=== PATIENT | male | born 1960 | race Caucasian/White ===

== ENCOUNTER → 2020-11-03 08:56 | Outpatient (CLI) | payer OTHER, SELFPAY ==
[2020-11-03 18:42] LABS: SARS-CoV-2 RNA PCR Negative
== END ==
PROVIDERS: PCP Family Medicine; Visit Provider Nurse Practitioner Family
DX: Z20.822 Contact with and (suspected) exposure to COVID-19 (principal); R06.89 Other abnormalities of breathing
CPT/HCPCS: C9803; U0003; U0005

== ENCOUNTER 2020-11-07 18:11 | Emergency (ER) | payer OTHER, SELFPAY ==
--- NOTE | ~2020-11-07 | XR_ITS ---
EXAMINATION: XR chest 2V DATE: 11/07/2020 18:47 INDICATION: Shortness of breath, fever, fatigue, weakness and lightheadedness. TECHNIQUE: frontal view of the chest was obtained. COMPARISON: Chest radiograph dated 11/05/18. FINDINGS: New linear band of atelectasis at the lingula. Prior band of discoid atelectasis at the right middle lobe has resolved. New small airspace opacity projects over the right hemidiaphragm which could repre sent pneumonia. No pleural effusion or pneumothorax. The cardiomediastinal silhouette is normal. Visu alized bones and soft tissues are unremarkable. IMPRESSION: 1. New small airspace opacity in the right lower lung zone which could represent atelectasis or pneum onia. 2. More well-defined linear discoid atelectasis at the lingula. Reviewed, dictated and finalized at location A. IMPRESSION: 1. New small airspace opacity in the right lower lung zone which could represen t atelectasis or pneumonia. 2. More well-defined linear discoid atelectasis at the lingula.
[2020-11-07 18:13] VITALS: BP 111/70; PULSE 83; RESP 20; TEMP 36.3; O2SAT 99
--- NOTE | 2020-11-07 18:13 | ECG_ITS ---
Measurements Intervals [place] Rate: 85 P: 16 [place]: 142 QRS: -11 QRSD: 90 T: -4 QT: 360 QTc: 429 Interpretive Statements SINUS RHYTHM BORDERLINE T WAVE ABNORMALITY- INFERIOR LEADS BASELINE ARTIFACT- I BORDERLINE ECG Electronically Signed On 11-07-2020 21:10:49 CDT by Liang Parrish D.O.
[2020-11-07 18:35] LABS: Basophils Absolute Auto 0.1 K/mm3 (0.0-0.1); Basophils Percent Auto 0.3 % (0.2-1.2); Eosinophils Absolute Auto 0.2 K/mm3 (0-0.3); Eosinophils Percent Auto 1.1 % (0-4.4); Hemoglobin 14.1 g/dL (14.0-18.0); Immature Granulocyte Absolute 0.14 K/mm3 (0.00-0.031); Immature Granulocyte Percent A 0.9 % (0-0.5); Lymphocytes Absolute Auto 1.79 K/mm3 (0.9-3.2); Lymphocytes Percent Auto 11.8 % (18.3-44.2); Mean Corpuscular HGB Conc 32.8 g/dl (32-36); Mean Corpuscular Volume 88.3 fl (80-100); Mean Platelet Volume 9.6 fl (7.4-10.4); Monocytes Absolute Auto 1.3 K/mm3 (0.1-0.6); Monocytes Percent Auto 8.7 % (2.6-8.5); Neutrophils Absolute Auto 11.7 K/mm3 (1.3-6.7); Neutrophils Percent Auto 77.2 % (45.5-73.1); Platelet Count Result 231 k/mm3 (150-375); Red Blood Count 4.87 M/mm3 (4.6-6.20); White Blood Count 15.2 K/mm3 (4.5-10.0)
[2020-11-07 18:46] LABS: Anion Gap 11 mmol/L (8-16); Blood Urea Nitrogen 16 mg/dL (9-20); Carbon Dioxide 25 mmol/L (22-30); Chloride 105 mmol/L (98-107); Estimated CRCL calculation 66 ml/min; Estimated Glomerular Filt Rate > 60; Glucose 89 mg/dL (75-110); Potassium 4.1 mmol/L (3.4-5.0); Sodium 141 mmol/L (137-145)
[2020-11-07 21:42] VITALS: BP 114/75; PULSE 82; RESP 18; O2SAT 100
--- NOTE | 2020-11-07 21:48 | ED.SOB ---
HPI - SOB/Dyspnea General Chief Complaint: Shortness of Breath/Dyspnea Stated Complaint: SOB, fatigue Time Seen by Provider: 11/07/20 21:20 Source: patient Mode of arrival: ambulatory Limitations: no limitations History of Present Illness HPI Narrative: 60-year-old with a history of hypertension here with complaints of shortness of breath occasional cough not feeling well for past 1 week. Patient states that he had been tested twice for Covid and was negative. He states that yesterday he was feeling very miserable however today he was feeling fine he denies any chest pain. No history of nausea or vomiting or abdominal pain. MD elicited complaint: shortness of breath Onset (ago): week(s) (1) Context: recent illness Severity: mild Exacerbating factors: nothing Relieving factors: nothing Associated symptoms: denies other symptoms Related Data Home Medications Medication Instructions Recorded Confirmed calcium carb-vitamin D3 ER 600 mg tablet PO 06/02/19 05/23/20 (1,500 mg)-500 unit tablet,ER 24 hr folic acid 1 mg tablet 1 mg PO DAILY 06/02/19 05/23/20 Allergies Allergy/AdvReac Type Severity Reaction Status Date / Time No Known Allergies Allergy Verified 11/02/20 10:25 Review of Systems Review of Systems: All systems reviewed & are unremarkable except as noted in HPI and below Constitutional: Constitutional: Reports no additional constitutional complaints Eyes: Eyes: Reports no additional eye complaints ENT: Reports system reviewed and no additional complaints, except as documented Cardiovascular: Cardiovascular: Reports no additional cardiovascular complaints Respiratory: Respiratory: Reports as per HPI Gastrointestinal: Gastrointestinal: Reports no additional gastrointestinal complaints Musculoskeletal: Musculoskeletal: Reports no additional musculoskeletal complaints Integumentary/Breasts: Skin/Breast: Reports system reviewed and no additional complaints, except as docu Neurologic: Reports system reviewed and no additional complaints, except as documented Endocrine: Endocrine: Reports no additional endocrine complaints [facility] Past Medical History Medical History BMI greater than 30 Crohn disease Elevated alanine aminotransferase (ALT) level Elevated glucose Erectile dysfunction Hypertension Hypothyroidism determined by thyroid function test Low testosterone Oral cancer Squamous acanthoma of left external ear Surgical History Surgical History H/O medial meniscus repair of right knee History of tonsillectomy Family History Family History Mother Hypertension Family history of transient ischemic attacks Family history of cardiovascular disease Family history of coronary artery disease Father Malignant neoplasm of prostate Grandparent Malignant neoplasm of prostate Social History Social History Smoking status: Never smoker Second hand tobacco smoke exposure: No Alcohol intake: current Substance use: never Substance use type: does not use Gender identity (if verbalized by the patient): Male Exam Narrative: Exam Narrative: GENERAL: Well-appearing, well-nourished, and in no acute distress. HEAD: Normocephalic, atraumatic. EYES: PERRLA and EOMI. NECK: Supple. CHEST: Clear to auscultation. No respiratory distress. HEART: Regular rate and rhythm. No murmur heard. Normal peripheral pulses. ABDOMEN: Soft, nontender, nondistended, normal active bowel sounds. EXTREMITIES: Normal range of motion. No edema. SKIN: Warm, dry, no rash. NEURO: No focal deficits. Alert and oriented x3. PSYCH: Normal mood and affect. Course Course Emergency Course: Patient lying comfortably on the bed SPO2 on room air is 100% I have reviewed his lab work, chest x-ray findings. Patient
== END 2020-11-07 22:03 | disposition home or self-care (01) ==
PROVIDERS: Emergency Medicine; Emergency Provider Family Medicine; PCP Family Medicine
DX: J18.9 Pneumonia, unspecified organism (principal); I10 Essential (primary) hypertension; K50.90 Crohn's disease, unspecified, without complications; E03.9 Hypothyroidism, unspecified; Z85.819 Personal history of malignant neoplasm of unspecified site of lip, oral cavity, and pharynx; R94.31 Abnormal electrocardiogram [ECG] [EKG]
CPT/HCPCS: 36415; 71046; 80048; 85025; 93005; 99284

== ENCOUNTER → 2020-11-21 07:44 | Outpatient (CLI) | payer OTHER, SELFPAY ==
--- NOTE | ~2020-11-21 | XR_ITS ---
EXAMINATION: XR chest 2V 11/21/2020 07:58 INDICATION: Pneumonia. PROCEDURE: 2 view chest COMPARISON: Comparison to multiple prior studies sequentially, with oldest reviewed study dated 11/20. FINDINGS: There is bibasilar atelectasis. No focal pneumonia or edema. The cardiomediastinal silhouet te is within normal limits. There are no pleural effusions. There is no pneumothorax suspected. IMPRESSION: 1: Bibasilar atelectasis. Reviewed, dictated and finalized at location B. IMPRESSION: 1: Bibasilar atelectasis.
== END ==
PROVIDERS: PCP Family Medicine; Visit Provider Nurse Practitioner Family
DX: J18.9 Pneumonia, unspecified organism (principal); R91.8 Other nonspecific abnormal finding of lung field
CPT/HCPCS: 71046

== ENCOUNTER → 2020-11-24 15:07 | Outpatient (CLI) | payer OTHER, SELFPAY ==
--- NOTE | ~2020-11-24 | XR_ITS ---
EXAMINATION: XR foot RT 2V DATE: 11/24/2020 15:43 INDICATION: Right foot pain. TECHNIQUE: 2 views of right foot were obtained. COMPARISON: None. FINDINGS: Bone alignment is normal. No fracture. There is mild osteoarthritis of first metatarsophala ngeal joint. There is soft tissue swelling medial to first metatarsophalangeal joint. There are enthe sophytes at the posterior and plantar aspects of calcaneal tuberosity. IMPRESSION: 1. Mild osteoarthritis of first metatarsophalangeal joint. Reviewed, dictated and finalized at location A.
== END ==
PROVIDERS: PCP Family Medicine; Visit Provider Nurse Practitioner Family
DX: M79.674 Pain in right toe(s) (principal); M79.89 Other specified soft tissue disorders; M19.071 Primary osteoarthritis, right ankle and foot
CPT/HCPCS: 73620

== ENCOUNTER 2021-02-17 07:35 | Outpatient (CLI) | payer OTHER, SELFPAY ==
--- NOTE | ~2021-02-17 | DEXA_ITS ---
Bone Density Report Name: Kennedy Berry Age: 60 Sex: Male Ethnicity: White Date of : 1960 Indication: osteopenia; cancer; Referring Provider: Oscar, Veronika Guillen Study: Bone densitometry was performed. Exam Date: February 17, 2021 Accession number: [id number] Bone Density: Region BMD T-score Z-score Classification AP Spine (L1-L4) 0.979 -1.0 -0.4 Normal Femoral Neck (Left) 0.701 -1.7 -0.7 Osteopenia Total Hip (Left) 0.866 -1.1 -0.7 Osteopenia Total Hip Bilateral Avg 0.850 -1.2 -0.8 Osteopenia Femoral Neck (Right) 0.701 -1.7 -0.7 Osteopenia Total Hip (Right) 0.834 -1.3 -0.9 Osteopenia World Health Organization criteria for BMD impression classify patients as: Normal (T-score at or above -1.0), Osteopenia (T-score between -1.0 and -2.5), or Osteoporosis (T-score at or below -2.5). 10-year Fracture Risk(1): Major Osteoporotic Fracture 6.1% Hip Fracture 0.8% Reported Risk Factors: [place] (), Neck BMD=0.701, BMI=29.8 (1) FRAX(R) Version 3.08. Fracture probability calculated for an untreated patient. Fracture probability may be lower if the patient has received treatment. Previous Exams: Region Exam Age BMD T-score BMD Change BMD Change Date g/cm2 vs Baseline vs Previous AP Spine(L1-L4) 02/17/2021 60 0.979 -1.0 0.005(0.6%)# 0.066(7.3%)* 09/01/2018 58 0.912 -1.6 -0.061(-6.3%)# -0.061(-6.3%)# 08/28/2011 51 0.973 -1.1 Total Hip(Left) 02/17/2021 60 0.866 -1.1 -0.007(-0.8%)# 0.001(0.1%) 09/01/2018 58 0.865 -1.1 -0.008(-0.9%)# -0.008(-0.9%)# 08/28/2011 51 0.874 -1.1 Total Hip(Right) 02/17/2021 60 0.834 -1.3 -0.033(-3.8%)# -0.010(-1.2%) 09/01/2018 58 0.844 -1.2 -0.023(-2.6%)# -0.023(-2.6%)# 08/28/2011 51 0.867 -1.1 *Denotes significance at 95% confidence level, LSC for AP Spine = 0.022 g/cm2, LSC for Total Hip = 0.027 g/cm2 Clinical Information Provided by Patient: Has used the following medications: Calcium Has the following medical conditions: Cancer, CROHN'S DISEASE Patient maximum height was 70 No regular weight bearing exercise Drinks caffeinated beverages Impression: The patient has low bone mass, based on the Left Femoral Neck T-score. The patient has an estimated ten-year risk of hip fracture of 0.8% and an estimated ten-year risk of major fracture of 6.1%, based on the WHO FRAX algorithm. No significant bone loss was observed. Discussion: BONE DENSITY IS LOW AT ONE
== END 2021-02-17 07:36 | disposition home or self-care (01) ==
LOC: ANHIMG 07:36
PROVIDERS: PCP Family Medicine; Visit Provider Physician Assistant Medical
DX: K50.10 Crohn's disease of large intestine without complications (principal); M85.80 Other specified disorders of bone density and structure, unspecified site; Z79.899 Other long term (current) drug therapy; M85.852 Other specified disorders of bone density and structure, left thigh; M85.851 Other specified disorders of bone density and structure, right thigh
CPT/HCPCS: 77080

== ENCOUNTER 2021-04-24 01:34 | Day surgery (SDC) | payer OTHER, SELFPAY ==
--- NOTE | 2021-04-24 07:47 | WPDANESEPPF ---
Anes - Initial Pre Proc Eval Procedure: Operation Date: 04/24/21 10:00 Proposed Procedures p Colonoscopy - Brad Dowling MD Date/Time: 04/24/21 07:47 Surgeon: Brad Dowling MD Pre Op Diagnosis: crohn's disease Patient Data Age: 60 Gender: M Height: 1.78 m Weight: 95 kg Allergies Allergy/AdvReac Type Severity Reaction Status Date / Time No Known Allergies Allergy Verified 04/24/21 09:14 Home Medications Medication Instructions Recorded Confirmed Type calcium carb-vitamin D3 ER 600 mg 1 tablet PO DAILY 06/02/19 04/20/21 History (1,500 mg)-500 unit tablet,ER 24 hr folic acid 1 mg tablet 1 mg PO DAILY 06/02/19 04/20/21 History rosuvastatin 20 mg tablet 20 mg PO DAILY #90 tablet 05/23/20 04/20/21 Rx testosterone 20.25 mg/1.25 gram 2 pump TOPICAL DAILY #75 gm 11/17/20 04/20/21 Rx (1.62 %) transdermal gel pump irbesartan 75 mg tablet See Rx Instructions .ROUTE 11/27/20 04/20/21 Rx .COMPLEX #90 tablet tamsulosin 0.4 mg capsule 0.4 mg PO DAILY #90 cap 02/01/21 04/20/21 Rx lhbdrrwl-qui-dzftz acid 300 1 tablet PO DAILY 03/14/21 04/20/21 History mcg-lycopene 600 mcg-lutein 300 mcg tablet sulfasalazine 500 mg tablet 0.5 g PO Q6H 03/14/21 04/20/21 History Patient hx anesthesia problems: none Family hx anesthesia problems: none Results Review: All pre-operative results and documents have been reviewed as part of the pre-operative evaluation. [facility] Past Medical History Medical History (Updated 04/24/21 @ 07:49 by Arsenio Reno MD) BMI 27.0-27.9,adult BMI 28.0-28.9,adult BMI greater than 30 Crohn disease Dyslipidemia Elevated alanine aminotransferase (ALT) level Elevated glucose Erectile dysfunction Hypertension Hypothyroidism determined by thyroid function test Low testosterone NAFLD (nonalcoholic fatty liver disease) Obesity Oral cancer Squamous acanthoma of left external ear Squamous cell carcinoma Surgical History Surgical History H/O medial meniscus repair of right knee History of tonsillectomy Family History Family History Mother Hypertension Family history of transient ischemic attacks Family history of cardiovascular disease Family history of coronary artery disease Father Malignant neoplasm of prostate Grandparent Malignant neoplasm of prostate Sibling No problems noted. Social History Social History Smoking status: Never smoker Second hand tobacco smoke exposure: Yes Alcohol intake: current Drinks per week: 1 Alcohol use details: Maybe 1 beer a week. 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 Informed Consent: The patient's anesthetic plan and its attendant risks and benefits were discussed with the patient/family/POA. Questions were solicited and answers provided to the satisfaction of the patient/family/POA.
[2021-04-24 09:15] VITALS: BMI 30.4
[2021-04-24 09:18] VITALS: BP 131/97; PULSE 82; RESP 20; TEMP 36.3; O2SAT 99
[2021-04-24] MEDS: LACTATED RINGERS 1,000 ML 150 ML IV CONT (09:19)
--- NOTE | 2021-04-24 09:28 | WPDGICN ---
Assessment and Plan Assessment and plan (1) Crohn disease: Qualifiers: Gastrointestinal tract location: small and large intestine Digestive disease complication type: without complication Qualified Code(s): K50.80 - Crohn's disease of both small and large intestine without complications Code(s): K50.90 - Crohn's disease, unspecified, without complications Status: Acute Assessment and Plan: Patient has a history of Crohn's disease. Appears to be stable on sulfasalazine. Agree with supplementing this with folic acid. Further recommendations will be given after screening colonoscopy. GI Consult Note Consult date/time: 04/24/21 09:28 HPI: Kennedy Berry is a 60 year old male Presents for surveillance colonoscopy. Patient res diagnosed with Crohn's disease in 2010. Apparently had terminal ileal disease. He has been maintained on sulfasalazine. Apparently took 2g of this a day along with folic acid. He apparently stopped it for a while but has restarted. Currently takes 2g a day. He denies any change in his bowel habits. Occasionally will have 1 urgent stools or occasional cramping but very infrequently perhaps 1 time a month. Denies any bleeding. He states he has been in remission for quite some time. This is my 1st encounter with him he previously has seen the nurse practitioner in the office and different patternmaker years ago. Family history is noncontributory. Review of Systems Review of Systems: All systems reviewed & are unremarkable except as noted in HPI and below PMFSH Past Medical History Medical History (Updated 04/24/21 @ 07:49 by Arsenio Reno MD) BMI 27.0-27.9,adult BMI 28.0-28.9,adult BMI greater than 30 Crohn disease Dyslipidemia Elevated alanine aminotransferase (ALT) level Elevated glucose Erectile dysfunction Hypertension Hypothyroidism determined by thyroid function test Low testosterone NAFLD (nonalcoholic fatty liver disease) Obesity Oral cancer Squamous acanthoma of left external ear Squamous cell carcinoma Surgical History Surgical History H/O medial meniscus repair of right knee History of tonsillectomy Family History Family History Mother Hypertension Family history of transient ischemic attacks Family history of cardiovascular disease Family history of coronary artery disease Father Malignant neoplasm of prostate Grandparent Malignant neoplasm of prostate Sibling No problems noted. Social History Social History Smoking status: Never smoker Second hand tobacco smoke exposure: Yes Alcohol intake: current Drinks per week: 1 Alcohol use details: Maybe 1 beer a week. 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ROUTE 11/27/20 04/20/21 Rx .COMPLEX #90 tablet tamsulosin 0.4 mg capsule 0.4 mg PO DAILY #90 cap 02/01/21 04/20/21 Rx omzvqohu-hjl-nymlh acid 300 1 tablet PO DAILY 03/14/21 04/20/21 History mcg-lycopene 600 mcg-lutein 300 mcg tablet sulfasalazine 500 mg tablet 0.5 g PO Q6H 03/14/21 04/20/21 H
[2021-04-24] MEDS: SIMETHICONE ORAL SUSPENSION 20 MG/0.3 ML 30 ML BOTTLE 0.6 ML IRRIGATION (10:00)
[2021-04-24 10:09] VITALS: BP 107/68; PULSE 94; RESP 22; O2SAT 94
[2021-04-24 10:19] VITALS: BP 110/78; PULSE 88; RESP 25; O2SAT 97
[2021-04-24 10:29] VITALS: BP 120/86; PULSE 90; RESP 21; O2SAT 97
== END 2021-04-24 10:56 | disposition home or self-care (01) ==
PROVIDERS: PCP Family Medicine; Visit Provider Internal Medicine Gastroenterology
PROC: 0DJD8ZZ Inspection of Lower Intestinal Tract, Via Natural or Artificial Opening Endoscopic (ICD-10-PCS; CPT 45378; principal; 2021-04-24 10:00)
DX: K50.90 Crohn's disease, unspecified, without complications (principal); K64.8 Other hemorrhoids; E78.5 Hyperlipidemia, unspecified; I10 Essential (primary) hypertension; E03.9 Hypothyroidism, unspecified; K76.0 Fatty (change of) liver, not elsewhere classified; E66.9 Obesity, unspecified; Z68.30 Body mass index [BMI] 30.0-30.9, adult
CPT/HCPCS: 45380; 88305; J2704; J7120

== ENCOUNTER 2021-11-07 11:27 | Outpatient (CLI) | payer OTHER, SELFPAY ==
[2021-11-07 12:08] LABS: Hematocrit 41.2 % (42.0-52.0); Mean Corpuscular Hemoglobin 29.9 pg (26-34); Mean Corpuscular Volume 87.8 fl (80-100); Mean Platelet Volume 9.9 fl (7.4-10.4); Platelet Count Result 185 k/mm3 (150-375); Red Blood Count 4.69 M/mm3 (4.6-6.20); Red Cell Distribution Width 13.3 % (11.5-14.5); White Blood Count 7.7 K/mm3 (4.5-10.0)
[2021-11-11 19:12] LABS: Testosterone Free 100.8 pg/mL (35.0-155.0); Testosterone Total 450 ng/dL (250-1100)
== END 2021-11-07 11:28 | disposition home or self-care (01) ==
PROVIDERS: PCP Family Medicine; Visit Provider Nurse Practitioner Family
DX: R79.89 Other specified abnormal findings of blood chemistry (principal)
CPT/HCPCS: 36415; 84402; 84403; 85027

== ENCOUNTER → 2022-04-30 08:05 | Outpatient (CLI) | payer OTHER, SELFPAY ==
--- NOTE | ~2022-04-30 | US_ITS ---
US abdomen complete DATE: 04/30/2022 08:45 INDICATION: Elevated liver enzymes. Fatty change of the liver. TECHNIQUE: Real-time imaging and Doppler analysis of the abdomen COMPARISON: 11/10/2018 CT abdomen pelvis FINDINGS: Normal caliber of the abdominal aorta. The inferior vena cava is unremarkable. There is suboptimal visualization of the pancreas due to overlying bowel gas. There is hepatic steatosis. No hepatic space-occupying mass lesion is detected. There is normal hepat opedal portal venous flow direction. There are intraluminal filling defects in the dependent aspect of the gallbladder with associated aco ustical shadowing consistent with cholelithiasis. No gallbladder wall thickening or abnormal perichol ecystic fluid collection is evident. Negative sonographic Presley's sign. Normal splenic size. Right kidney measures approximately 10.5 cm length, left kidney approximately 10.8 cm length. There i s a hyperechoic focus of the right kidney which shadowing, likely corresponding to a calculus noted i n the right kidney on prior CT abdomen pelvis examination. No hydronephrosis or space-occupying mass lesion of either kidney is evident. IMPRESSION: Hepatic steatosis Limited evaluation of the pancreas due to overlying bowel gas Cholelithiasis Right nephrolithiasis Reviewed, dictated and finalized at Location A. Reviewed, dictated and finalized at location B. 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
== END ==
PROVIDERS: PCP Family Medicine; Visit Provider Physician Assistant Medical
DX: K76.0 Fatty (change of) liver, not elsewhere classified (principal); K80.20 Calculus of gallbladder without cholecystitis without obstruction; N20.0 Calculus of kidney
CPT/HCPCS: 76700

== ENCOUNTER 2023-04-01 14:46 | Outpatient (CLI) | payer OTHER, SELFPAY ==
--- NOTE | 2023-04-01 14:54 | ECG_ITS ---
Measurements Intervals [place] Rate: 58 P: 51 SD: 170 QRS: 18 QRSD: 97 T: 41 QT: 404 QTc: 398 Interpretive Statements SINUS BRADYCARDIA COMPARED TO ECG 11/07/2020 18:20:23 SINUS BRADYCARDIA NOW PRESENT Electronically Signed On 04-02-2023 11:22:23 CDT by Chaim Reaves M.D.
== END 2023-04-01 14:47 | disposition home or self-care (01) ==
LOC: ANHCARD 14:47
PROVIDERS: PCP Family Medicine; Visit Provider Family Medicine
DX: I49.9 Cardiac arrhythmia, unspecified (principal)
CPT/HCPCS: 93005

== ENCOUNTER 2024-08-06 00:40 | Day surgery (SDC) | payer BC, SELFPAY ==
[2024-07-29 13:34] VITALS: BMI 29.6
--- OUTSIDE RECORDS SUMMARY | 2024-08-06 00:43 | XMS_ITS | Encounter Summary ---
Author Organization [facility] Address [address] [place] [address] Phone Care Team Providers Care Plumbing Engineering Draftsperson Name Role Phone James Langston MD Unavailable [phone] James Langston MD Primary Care Provider + [phone] James Langston MD Primary Care Provider + [phone] Dejah Aburto MD Primary Care Provider + [phone] Mike Llamas MD Primary Care Provider + [phone] Encounter Details Date Type Department Care Team (Late st Contact Info) Description 02/19/2018 Telephone [facility] ([facility]) - [facility] [address] [place] [address] [place] [address] Chiquita Magana Social History Tobacco Use Types Packs/Day Years Used Date Smoking Tobacco: Never Smokeless Tobacco: Never Sex and Gender Information Value Date Recorded Sex Assigned at Not on file 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 Gender Identity Not on file Sexual Orientation Not on file documented as of this encounter Plan of Treatment Not on file documented as of this encounter Visit Diagnoses Not on filedocumented in this encounter Care Teams Plumbing Engineering Draftsperson Relationship Specialty Start Date End Date James Langston MD [address] [place] [id number] PCP - General 08/08/17 02/23/18 James Langston MD [address] [place] [address] PCP - General 02/24/18 04/15/19 Dejah Aburto MD [address] [place] [id number] PCP - General Family Practice 04/16/19 05/17/20 Mike Llamas MD [address] [place] [address] PCP - General Family Medicine 05/18/20 James Langston MD [address] [place] [id number] 08/08/17 documented as of this encounter
--- OUTSIDE RECORDS SUMMARY | 2024-08-06 00:43 | XMS_ITS | Clinical Summary ---
Author Organization [facility] Address [address] [place] [address] Care Team Providers Care Other Spatial Scientist Name Role Phone Mike Llamas MD Primary Care Provider [phone] Source Comments [facility],non-owned Affiliates and Associated Physician Practices is amultiple site organization consisting of ambulatory clinics and hospital sitesin [place], [place], [place] and [place]. This disclosure is being madepursuant to the Care Everywhere program and may not contain all information available regarding this patient. Last updated 18.[facility] Allergies Active Allergy Reactions Criticality Noted Date Comments Azathioprine Vomiting 12/19/2020 Medications * Be aware that medications may not be up to date on this document. Alwaysverify current medications with the patient. Medication Sig Dispensed Refills Start Date End Date Status folic acid (FOLVITE) 1 MG tablet Take 1 (one) tablet by mouth once daily 09/17/2017 Active tamsulosin (FLOMAX) 0.4 MG capsule Take 1 (one) capsule by mouth once daily 08/30/2017 Active Multiple Vitamin (MULTI VITAMIN MENS PO) Take 1 tablet by mouth once daily Active irbesartan (AVAPRO) 75 MG tablet Take 1 (one) tablet by mouth once daily 02/04/2019 Active calcium 200 MG tablet Take 3 (three) tablets by mouth once daily Active rosuvastatin (Crestor) 20 MG tablet 03/28/2022 Active testosterone cypionate (Depo-Testosterone) 200 MG/ML injection 07/24/2022 Activ e Active Problems Problem Noted Date Diagnosed Date Contact dermatitis of left eyelid 03/26/2022 Actinic skin damage 03/26/2022 Inflamed seborrheic keratosis 06/28/2021 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 History of actinic keratoses 10/20/2018 History of nonmelanoma skin cancer 04/07/2018 Actinic keratoses 04/07/2018 History of tongue cancer 04/07/2018 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 Diagnosis. Left oral tongue squamous cell carcinoma Left partial glossectomy, less than 1/2 of the tongue ([place] 08/12/17) Left selective neck dissection levels 1,2,3, and 4 ([place] 08/12/17) Diagnosis * Squamous cell carcinoma of tongue (CMS/HCC) [C02.9] PROCEDURE PERFORMED: ([place] 02/24/18) Left partial Glossectomy Allerderm graft 2 x 4 cm Seborrheic keratoses 10/18/2017 Neoplasm of uncertain behavior of skin 8 Multiple benign melanocytic nevi of upper and lower extremities and trunk 10/18/2017 Solar lentiginosis 10/18/2017 Benign neoplasm of left eyelid 10/18/2017 Immunizations Name Administration Dates Next Due Needle primary monoval ent 12+ yr 0.3mL Purple cap 05/22/2021 HEP A VACCINE, ADULT 06/10/2015 HEP B VACCINE, ADULT 3 DOSE 07/11/2015, 6 INFLUENZA VACCINE 03/05/2022, 1,03/11/2020,2017 PNEUMOCOCCAL PPSV23 11/21/2011 TD (ADULT), 5 LF TETANUS TOX OID, ADSORBED, PF 08/15/2005 TDAP (7yrs+) 07/20/2016 Family History Medical History Relation Name Comments None Known Brother Cancer - Prostate Father None Known Maternal Aunt None Known Maternal Grandfather None Known Maternal Grandmother None Known Maternal Uncle None Known Mother None Known Other None Known Paternal Aunt Cancer - Prostate Paternal Grandfather None Known Paternal Grandmother None Known Paternal Uncle None Known Sister Asthma Neg Hx CVA Neg Hx Cancer - Breast Neg Hx Cancer - Other Neg Hx Cancer - Skin, Melanoma Neg Hx Cancer - Skin, Non Melanoma Neg Hx Eczema Neg Hx Hemophilia Neg Hx Psoriasis Neg Hx Relation Name Status Comments Brother Father Maternal Aunt Maternal Grandfather Maternal Grandmother Maternal Uncle Mother Other Paternal Aunt Paternal Grandfather Paternal Grandmother Paternal Uncle Sister Social History Tobacco Use Types Packs/Day Years Used Date Smoking Tobacco: Never Smokeless Tobacco: Never Alcohol Use Standard Drinks/Week Comments Yes 0 (1 standard drink = 0.6 oz pur e alcohol) Sex and Gender Information Value Date Recorded Sex Assigned at Not on file Gender Identity Not on file Sexual Orientation Not on file Last Filed Vital Signs Vital Sign Reading Time Taken Comments Blood Pressure 122/91 01/10/2018 1:00 PM CDT Pulse 95 01/10/2018 1:00 PM CDT Temperature 36.7 C (98.1 F) 01/10/2018 8:16 AM CDT Respiratory Rate 25 01/10/2018 12:00 PM CDT Oxygen Saturation 99% 01/10/2018 1:00 PM CDT Inhaled Oxygen Concentration - - Weight 90.7 kg (200 lb) 01/10/2018 8:16 AM CDT Height 177.8 cm (5' 10 ) 01/10/2018 8:16 AM CDT Body Mass Index 28.7 01/10/2018 8:16 AM CDT Plan of Treatment Upcoming Encounters Date Type Department Care Team (Late st Contact Info) Description 04/16/2025 1:00 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 Office Visit [facility] - Dermatology [address] [place] [address], [facility] [place] [address] Cameron Christianson MD [address] [place] [address] [address] [place] [address] Health Maintenance Due Date Last Done Comments COLOGUARD (AGES 45-75) - COLON CA SCREENING 1961 COLON MONITORING 1961 COLONOSCOPY - COLON CA SCREENING 1961 CT COLONOGRAPHY - COLON CA SCREENING 1961 Colorectal Cancer Screening 1961 FIT - COLON CA SCREENING 1961 FLEX SIG - COLON CA SCREENING 1961 HIV SCREENING 1976 HEPATITIS C SCREENING 06/11/1979 ZOSTER VACCINE (1 of 2) 2011 PNEUMOCOCCAL VACCINE 50+ (2 of 2 - PCV) 11/20/2012 11/21/2011 HEPATITIS B VACCINE (3 of 3 - 19+ 3-dose series) 12/09/2015 07/11/2015, 06/10/2015 COVID-19 VACCINE ( season) 2024 05/22/2021, 09/11/2020, 08/18/2020 INFLUENZA VACCINE (#1) 2024 2, 03/03/2021, 03/11/2020, Additional history exists DEPRESSION SCREENING 06/03/2024 DTAP/TDAP/TD VACCINES (3 - Td or Tdap) 07/20/2026 07/20/2016, 08/15/2005 Respiratory Syncytial Virus (RSV) Vaccine Pt: or over 60 yrs (1 - 1-dose 75+ series) 2036 PNEUMOCOCCAL VACCINE Aged Out 11/21/2011 No long er eligible based on patient's age to complete this topic HIB VACCINE Aged Out No longer eligi ble based on patient's age to complete this topic HPV VACCINE Aged Out No longer eligi ble based on patient's age to complete this topic MENINGOCOCCAL (Group B) VACCINE Aged Out No longer eligible based on patient's age to complete this topic MENINGOCOCCAL VACCINE Aged Out No carmencita marisela eligible based on patient's age to complete this topic Care Teams Other Spatial Scientist Relationship Specialty Start Date End Date Mike Llamas MD [address] [place] [address] PCP - General 11/29/21
--- OUTSIDE RECORDS SUMMARY | 2024-08-06 00:43 | XMS_ITS | Clinical Summary ---
Author Organization [facility] Address [address] [place] [address] Care Team Providers Care Layboy Tender Name Role Phone James Langston MD Unavailable [phone] Mike Llamas MD Primary Care Provider [phone] Allergies No known active allergies Medications irbesartan (AVAPRO) 75 mg tabletIndication s:hypertension Take 75 mg by mouth every morning. 10/21/2017 Active acetaminophen (TYLENOL) 325 mg tabletIndication s:Pain Take 650 mg by mouth every 6 (six) hours as needed for pain. Active tamsulosin (FLOMAX) 0.4 mg extended release capsule Take 0.4 mg by mouth 08/30/2017 Active folic acid (FOLVITE) 1 mg tablet TAKE 1 TABLET DAILY 09/17/2017 Active sulfaSALAzine (AZULFIDINE) 500 mg tablet Take 500 mg by mouth 4 times daily 11/04/2018 Active levothyroxine (SYNTHROID, LEVOTHROID) 25 mcg tablet TK 1 T PO QD OES 1 11/17/2018 Active azaTHIOprine (IMURAN) 50 mg tablet Take 100 mg by mouth daily 11/20/2018 Active multivitamin tablet Take 1 tablet by mouth Active calcium carbonate (OS-OSBALDO) 1,500 mg (600 mg of elemental calcium) tablet Take by mouth Active Active Problems Problem Noted Date Diagnosed Date 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 Diagnosis. 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 12/06/2017 Surgical History Surgery Date Site/Laterality Comments NECK DISSECTION 08/12/2017 PARTIAL GLOSSECTOMY 08/12/2017 Left TONSILLECTOMY Medical History Medical History Date Comments Personal history of malignant neoplasm History of malignant neoplasm - (Added by LEI Conv) BPH (benign prostatic hyperplasia) Crohn's disease (HCC) Family History Medical History Relation Name Comments Prostate cancer Father Family histo ry of malignant neoplasm of prostate - (Added by LEI Conv) Coronary artery disease Mother Other Mother H/O heart bypas s surgery - (Added by LEI Conv) Heart attack Paternal Grandmother Relation Name Status Comments Father Mother Paternal Grandmother Social History Tobacco Use Types Packs/Day Years Used Date Smoking Tobacco: Never Smokeless Tobacco: Never Alcohol Use Standard Drinks/Week Comments Yes 0 (1 standard drink = 0.6 oz pur e alcohol) rare Sex and Gender Information Value Date Recorded Sex Assigned at Not on file 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 Gender Identity Not on file Sexual Orientation Not on file Obstetrics History Last Filed Vital Signs Vital Sign Reading Time Taken Comments Blood Pressure 150/96 02/24/2018 10:40 AM CDT Pulse 90 02/24/2018 10:40 AM CDT Temperature 36.3 C (97.3 F) 02/24/2018 8:43 AM CDT Respiratory Rate 19 02/24/2018 10:40 AM CDT Oxygen Saturation 94% 02/24/2018 10:40 AM CDT Inhaled Oxygen Concentration - - Weight 98.9 kg (218 lb) 05/17/2021 12:51 PM LUNCHEONETTE MANAGER Height 177.8 cm (5' 10 ) 02/21/2018 8:25 AM CDT Body Mass Index 31.28 02/21/2018 8:25 AM CDT Plan of Treatment Not on file Medical Devices Implanted Type Area Pattern Gater Device Identifier Shelf Expiration Date Model / Serial / Lot [employer] [id number] Alloderm 4x2cm Allograft Medium Graft Skin - [id number] Implanted:Qty: 1 on 02/24/2018 by Nico Gallegos MD at [facility] Left: Tongue [employer] 12/01/2019 [id number] / / [id number] Description:No waste Insurance [address] [place] [address] [facility] CHOICE PLUS [address] [place] [address] [employer] ACCESS [address] [place] [address] Care Teams Layboy Tender Relationship Specialty Start Date End Date Mike Llamas MD [address] [place] [id number] PCP - General Family Medicine 05/18/20 James Langston MD [address] [facility] [place] [address] 08/08/17
--- OUTSIDE RECORDS SUMMARY | 2024-08-06 00:43 | XMS_ITS | Patient Health Summary ---
Author Organization [facility] Address [address] [place] [address] Care Team Providers Care Veterinary Medicine Teacher Name Role Phone Mike Llamas MD Primary Care Provider [phone] Note from [facility],non-owned Affiliates and Associated Physician Practices is amultiple site organization consisting of ambulatory clinics and hospital sitesin [place], [place], [place] and [place]. This disclosure is being madepursuant to the Care Everywhere program and may not contain all information available regarding this patient. Last updated 18.[facility] Allergies * Azathioprine(Vomiting) Medications * Be aware that medications may not be up to date on this document. Alwaysverify current medications with the patient. * folic acid (FOLVITE) 1 MG tablet(Started 09/17/2017) Take 1 (one) tablet by mouth once daily * tamsulosin (FLOMAX) 0.4 MG capsule(Started 08/30/2017) Take 1 (one) capsule by mouth once daily * Multiple Vitamin (MULTI VITAMIN MENS PO) Take 1 tablet by mouth once daily * irbesartan (AVAPRO) 75 MG tablet(Started 02/04/2019) Take 1 (one) tablet by mouth once daily * calcium 200 MG tablet Take 3 (three) tablets by mouth once daily * rosuvastatin (Crestor) 20 MG tablet(Started 03/28/2022) * testosterone cypionate (Depo-Testosterone) 200 MG/ML injection(Started 07/24/2022) Active Problems Problem Noted Date Diagnosed Date Contact dermatitis of left eyelid 03/26/2022 Actinic skin damage 03/26/2022 Inflamed seborrheic keratosis 06/28/2021 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 History of actinic keratoses 10/20/2018 History of nonmelanoma skin cancer 04/07/2018 Actinic keratoses 04/07/2018 History of tongue cancer 04/07/2018 Squamous cell carcinoma of tongue 02/11/2018 Seborrheic keratoses 10/18/2017 Neoplasm of uncertain behavior of skin 8 Multiple benign melanocytic nevi of upper and lower extremities and trunk 10/18/2017 Solar lentiginosis 10/18/2017 Benign neoplasm of left eyelid 10/18/2017 Immunizations * Covid Pfizer primary monovalent 12+ yr 0.3mL Purple cap(Given 05/22/2021) * HEP A VACCINE, ADULT(Given 06/10/2015) * HEP B VACCINE, ADULT 3 DOSE(Given 07/11/2015, 06/10/2015) * INFLUENZA VACCINE(Given 03/05/2022, 03/03/2021, 03/11/2020, 03/07/2018) * PNEUMOCOCCAL PPSV23(Given 11/21/2011) * TD (ADULT), 5 LF TETANUS TOXOID, ADSORBED, PF(Given 08/15/2005) * TDAP (7yrs+)(Given 07/20/2016) Social History Tobacco Use Types Packs/Day Years [...] Mass Index 28.7 01/10/2018 8:16 AM CDT Procedures * [place] DESTROY PREMALIG LESION, 2-14(Performed 04/18/2024) Performed for Actinic keratosis * [place] DESTROY PREMALIG LESION, 1ST LESION(Performed 04/18/2024) Performed for Actinic keratosis * [place] DSTRJ ALL PRMLG 15 OR MORE(Performed 02/27/2023) Performed for Actinic keratosis * [place] TANGNTL BX SKIN SINGLE LES(Performed 03/26/2022) Performed for Neoplasm of uncertain behavior of skin * [place] DESTROY PREMALIG LESION, 1ST LESION(Performed 03/26/2022) Performed for Actinic keratoses * [place] DESTROY PREMALIG LESION, 2-14(Performed 03/26/2022) Performed for Actinic keratoses * DERMATOPATHOLOGY(Performed 03/26/2022) Performed for Neoplasm of uncertain behavior of skin * [place] DESTRUCT BENIGN LESION, 1-14(Performed 06/28/2021) Performed for Inflamed seborrheic keratosis * [place] DESTROY PREMALIG LESION, 1ST LESION(Performed 06/28/2021) Performed for Actinic keratosis * [place] DESTROY PREMALIG LESION, 2-14(Performed 06/28/2021) Performed for Actinic keratosis * [place] DESTROY PREMALIG LESION, 1ST LESION(Performed 04/27/2020) Performed for Actinic keratosis * [place] DESTROY PREMALIG LESION, 2-14(Performed 04/27/2020) Performed for Actinic keratosis * [place] DESTROY PREMALIG LESION, 1ST LESION(Performed 04/27/2019) Performed for Actinic keratosis * [place] DESTROY PREMALIG LESION, 2-14(Performed 04/27/2019) Performed for Actinic keratosis * [place] DESTROY PREMALIG LESION, 1ST LESION(Performed 04/07/2018) Performed for Actinic keratosis * CARDIAC RHYTHM STRIP ORDER(Performed 01/14/2018) * CARDIAC EKG ORDER(Performed 01/13/2018) * LACTIC ACID BLOOD POC VENOUS(Performed 01/10/2018) * LACTATE HAILEE POC NOTIFICATION(Performed 01/10/2018) * XR CHEST 2VW(Performed 01/10/2018) Performed for Syncope, unspecified syncope type * MAGNESIUM BLOOD(Performed 01/10/2018) * BASIC METABOLIC PANEL (CALCIUM TOTAL)(Performed 01/10/2018) * CBC W AUTO DIFFERENTIAL(Performed 01/10/2018) * EKG 12-LEAD(Performed 01/10/2018) Performed for Syncope, unspecified syncope type * [place] BIOPSY, EACH ADDED LESION(Performed 11/05/2017) Performed for Neoplasm of uncertain behavior of skin * [place] BIOPSY OF SKIN LESION(Performed 11/05/2017) Performed for Neoplasm of uncertain behavior of skin * DERMATOPATHOLOGY(Performed 10/14/2017) Performed for Neoplasm of uncertain behavior of skin Results * [place] DESTROY PREMALIG LESION, 1ST LESION, [place] DESTROY PREMALIG LESION, 2-14 (04/18/2024 11:15 AM DIRECTOR FINANCIAL SERVICES) Narrative Cameron Christianson MD - 04/18/2024 11:15 AM DIRECTOR FINANCIAL SERVICES Cameron Christianson MD 04/18/2024 11:15 AM Procedure: liquid nitrogen/cryotherapy Liquid nitrogen was applied with the spray cannister to the affected skin lesion(s). The expected reaction ranges from minimal changes to scabbing, crust, blistering, or swelling, which can be painful. Color changes different from the surrounding skin are expected and can be either light cleaner or darker--this can sometimes take a long time to fully resolve, and in some cases, it may not ever fully look like the surrounding skin--there is a delicate balance between freezing hard enough for efficacy and such side effects that is different for different people. There is a small risk of infection similar to any time there is a break in the skin. Blister/wound care discussed, handout given. Return if lesions fail to fully resolve. Verbal consent obtained prior to any procedures being done. Cameron Christianson MD PROCEDURE/MINOR SURG ICAL ORDERABLES * [place] DSTRJ ALL PRMLG 15 OR MORE (02/27/2023 7:49 AM CDT) Narrative Cameron Christianson MD - 02/27/2023 7:49 AM CDT Cameron Christianson MD 02/27/2023 7:49 AM Procedure: liquid nitrogen/cryotherapy Liquid nitrogen was applied with the spray cannister to the affected skin lesion(s). The expected reaction ranges from minimal changes to scabbing, crust, blistering, or swelling, which can be painful. Color changes different from the surrounding skin are expected and can be either light cleaner or darker--this can sometimes take a long time to fully resolve, and in some cases, it may not ever fully look like the surrounding skin--there is a delicate balance between freezing hard enough for efficacy and such side effects that is different for different people. There is a small risk of infection similar to any time there is a break in the skin. Blister/wound care discussed, handout given. Return if lesions fail to fully resolve. Verbal consent obtained prior to any procedures being done. Cameron Christianson MD PROCEDURE/MINOR SURG ICAL ORDERABLES * KY TANGNTL BX SKIN SINGLE LES (03/26/2022 5:10 PM CDT) Cara Maciel MD - 03/26/2022 5:10 PM CDT Misael Velez DO 03/26/2022 5:10 PM Risks, benefits and alternatives to shave biopsy were discussed with the patient. Verbal consent was obtained. Encounter Diagnoses Name Primary? Neoplasm of uncertain behavior of skin Yes Contact dermatitis of left eyelid Actinic keratoses Multiple benign melanocytic nevi of upper and lower extremities and trunk Actinic skin damage Seborrheic keratoses Kumari angioma Location: R upper abdomen Skin prep: Alcohol Anesthesia: 1% lidocaine with epinephrine Hemostasis: Aluminum chloride Dressing and wound care discussed. Specimen(s) placed in a patient labeled container and sent to [facility] Dermatopathology. Patient agrees to phone call for results and message if not available. Misael Velez DO PGY-3 U Dermatology Resident Cara Kahn MD PROCEDURE/MINOR SURG ICAL ORDERABLES * KY DESTROY PREMALIG LESION, 2-14, [place] DESTROY PREMALIG LESION, 1ST LESION (03/26/2022 5:09 PM CDT) Cara Maciel MD - 03/26/2022 5:09 PM CDT Misael Velez DO 03/26/2022 5:10 PM Diagnosis and treatment options discussed. Cryotherapy (Liquid Nitrogen) to 5 AKs (scalp) for 4-6 seconds each. Number of cycles: 1. Wound care reviewed. Misael Velez DO PGY-3 U Dermatology Resident Cara Kahn MD PROCEDURE/MINOR SURG ICAL ORDERABLES * DERMATOPATHOLOGY (03/26/2022 12:18 PM CDT) Only the most recent of2 resultswithin the time period is included. Case Report Dermatopathology Report Case: [id number] Authorizing Provider: Cara Kahn MD Collected: 03/26/2022 12:18 PM Ordering Location: [facility] Received: 03/27/2022 01:35 PM Dermatology Pathologist: May Messina MD Specimen: Skin, right upper abdomen 1:17 PM CDT DERMATOPATHOLOGY LABORATORY Final Diagnosis Specimen A. SKIN, right upper abdomen: COMPOUND MELANOCYTIC NEVUS (D22.5) 1:17 PM CDT DERMATOPATHOLOGY LABORATORY Clinical History Nevus vs. R/O Melanoma 1:17 PM CDT DERMATOPATHOLOGY LABORATORY Gross Description Specimen A: Received is one formalin filled container labeled with the patient's name and designated right upper abdomen. The specimen consists of a shave biopsy measuring 80m6s3cr. Jar 0. 1:17 PM CDT DERMATOPATHOLOGY LABORATORY Microscopic Description Specimen A. SKIN, right upper abdomen: There are nests of melanocytes at the dermal-epidermal junction and within the dermis. 1:17 PM CDT DERMATOPATHOLOGY LABORATORY Disclaimer An external and internal positive and negative controls are appropriate for the histochemical, immunohistochemical and immunofluorescence stain(s) in this case (if any), except where stated explicitly. The performance characteristics of the stain(s) cited in this report were developed and its performance characteristic determined by the Dermatopathology Laboratory at [facility], directed by Dr. Nadia Garcia. These tests need not be, and therefore are not, approved by the [place] Food and Drug Administration. The tests are used for clinical purposes. Billing Codes Specimen Charges Stain Charges 41378 1 1:17 PM CDT DERMATOPATHOLOGY LABORATORY Embedded Images 1:17 PM CDT DERMATOPATHOLOGY LABORATORY Pathology/Cytolo gy TISSUE SPECIMEN FROM SKIN / Unknown 03/26/2022 12:18 PM CDT 03/27/2022 1:35 PM CDT Cara Kahn MD LAB - PATHOLOGY/CYTO LOGY ORDERABLES DERMATOPATHOLOGY LABORATORY [facility] - Department of Dermatology [facility] [address]rd [address] [phone] * [place] DESTRUCT BENIGN LESION, 1-14 (06/28/2021 5:27 PM DIRECTOR FINANCIAL SERVICES) Cameron Barrientos MD - 06/28/2021 5:27 PM DIRECTOR FINANCIAL SERVICES Cameron Christianson MD 06/28/2021 5:27 PM Procedure: liquid nitrogen/cryotherapy Liquid nitrogen was applied with the spray cannister to the affected skin lesion(s). The expected reaction ranges from minimal changes to scabbing, crust, blistering, or swelling, which can be painful. Color changes different from the surrounding skin are expected and can be either light cleaner or darker--this can sometimes take a long time to fully resolve, and in some cases, it may not ever fully look like the surrounding skin--there is a delicate balance between freezing hard enough for efficacy and such side effects that is different for different people. There is a small risk of infection similar to any time there is a break in the skin. Blister/wound care discussed, handout given. Return if lesions fail to fully resolve. Verbal consent obtained prior to any procedures being done. Cameron Christianson MD PROCEDURE/MINOR SURG ICAL ORDERABLES * [place] DESTROY PREMALIG LESION, 2-14, [place] DESTROY PREMALIG LESION, 1ST LESION (06/28/2021 5:27 PM DIRECTOR FINANCIAL SERVICES) Narrative Cameron Christianson MD - 06/28/2021 5:27 PM DIRECTOR FINANCIAL SERVICES Cameron Christianson MD 06/28/2021 5:27 PM Procedure: liquid nitrogen/cryotherapy Liquid nitrogen was applied with the spray cannister to the affected skin lesion(s). The expected reaction ranges from minimal changes to scabbing, crust, blistering, or swelling, which can be painful. Color changes different from the surrounding skin are expected and can be either light cleaner or darker--this can sometimes take a long time to fully resolve, and in some cases, it may not ever fully look like the surrounding skin--there is a delicate balance between freezing hard enough for efficacy and such side effects that is different for different people. There is a small risk of infection similar to any time there is a break in the skin. Blister/wound care discussed, handout given. Return if lesions fail to fully resolve. Verbal consent obtained prior to any procedures being done. Cameron Christianson MD PROCEDURE/MINOR SURG ICAL ORDERABLES * [place] DESTROY PREMALIG LESION, 2-14, [place] DESTROY PREMALIG LESION, 1ST LESION (04/27/2020 8:49 AM DIRECTOR FINANCIAL SERVICES) Narrative Cameron Christianson MD - 04/27/2020 8:49 AM DIRECTOR FINANCIAL SERVICES Hailey Church MD 04/27/2020 8:50 AM Diagnosis and treatment options discussed. Cryotherapy (Liquid Nitrogen) to 2 lesions for 5-10 seconds each. Number of cycles: 1. Wound care reviewed. Hailey Church MD [facility] Dermatology Resident PGY-4 Cameron Christianson MD PROCEDURE/MINOR SURG ICAL ORDERABLES * CARDIAC RHYTHM STRIP ORDER (01/14/2018 4:21 AM CDT) Narrative 01/14/2018 4:21 AM CDT Ordered by an unspecified provider. Scanned Document CARDIAC SERVICES ORD ERABLES * CARDIAC EKG ORDER (01/13/2018 11:10 PM CDT) Narrative 01/13/2018 11:10 PM CDT Ordered by an unspecified provider. Scanned Document CARDIAC SERVICES ORD ERABLES * LACTIC ACID BLOOD POC VENOUS (01/10/2018 12:23 PM CDT) [facility] Lactate iSTAT Venous POCT 1.00 0.70 - 2.10 mmol/L 01/10/2018 12:46 PM CDT [facility] Sample iSTAT VENOUS 01/10/2018 12:46 PM CDT [facility] Blood BLOOD SPECIMEN / Unknown 01/10/2018 12:23 PM CDT 01/10/2018 12:46 PM CDT Provider Unknown LAB - POINT OF CARE ORDERABLES [facility] [id number] * LACTATE HAILEE POC NOTIFICATION (01/10/2018 12:22 PM CDT) Comment Notification Label Only - See Separate Report 01/10/2018 2:00 PM CDT [facility] Blood BLOOD SPECIMEN / Unknown 01/10/2018 12:22 PM CDT 01/10/2018 12:22 PM CDT Heriberto Martinez Fredy PA-C LAB - BLOO D GASES ORDERABLES [facility] [address] * XR CHEST PA AND LATERAL (01/10/2018 11:13 AM CDT) Anatomical Region Laterality Modality Chest Radiographic Little ging 01/10/2018 11:1 4 AM CDT Impressions 01/10/2018 11:14 AM CDT Bibasilar atelectasis. Reading Radiologist: Shantell Peraza MD on 01/10/2018 at 11:14 AM Narrative 01/10/2018 11:14 AM CDT PA AND LATERAL CHEST INDICATION: Syncope FINDINGS: There is bibasilar atelectasis. The mediastinal contour and heart size are within normal limits. The pulmonary vascularity is normal. The osseous structures are unremarkable. Procedure Note Shantell Peraza MD - 01/10/2018 PA AND LATERAL CHEST INDICATION: Syncope FINDINGS: There is bibasilar atelectasis. The mediastinal contour and heart size are within normal limits. The pulmonary vascularity is normal. The osseous structures are unremarkable. IMPRESSION Bibasilar atelectasis. Reading Radiologist: Shantell Peraza MD on 01/10/2018 at 11:14 AM Gabriel Porter MD DIAGNOSTIC IMAGING O RDERABLES * (ABNORMAL) CBC W AUTO DIFFERENTIAL (01/10/2018 10:08 AM CDT) WBC 12.2(H) 4.4 - 10.7 x10E9/L 01/10/2018 10:16 AM CDT [facility] WBC Corrected x10E9/L 01/10/2018 10:16 AM CDT [facility] RBC 4.72 3.80 - 5.40 x10E12/L 01/10/2018 10:16 AM CDT [facility] Hemoglobin 14.2 12.0 - 17.6 gm/dL 01/10/2018 10:16 AM CDT [facility] Hematocrit 42.2 35.2 - 51.7 % 01/10/2018 10:16 AM CDT [facility] MCV 89.4 80.7 - 98.3 fl 01/10/2018 10:16 AM CDT [facility] MCH 30.1 26.7 - 34.0 pg 01/10/2018 10:16 AM CDT [facility] MCHC 33.6 30.8 - 35.9 gm/dL 01/10/2018 10:16 AM CDT [facility] Platelet Count 179 153 - 416 x10E9/L 01/10/2018 10:16 AM CDT [facility] RDW-CV 12.8 12.1 - 14.9 % 01/10/2018 10:16 AM CDT [facility] MPV 9.7 9.4 - 12.9 fl 01/10/2018 10:16 AM T [facility] Neutrophils % 78.8(H) 44.0 - 73.0 % 01/10/2018 10:16 AM CDT [facility] Lymphocytes % 8.6(L) 20.0 - 43.0 % 01/10/2018 10:16 AM CDT [facility] Monocytes % 10.3 5.0 - 13.0 % 01/10/2018 10:16 AM CDT [facility] Eosinophils % 0.4 0.0 - 6.0 % 01/10/2018 10:16 AM CDT [facility] Basophils % 0.3 0.0 - 2.0 % 01/10/2018 10:16 AM CDT [facility] Immature Granulocytes 1.6(H) 0 - 1 % 01/10/2018 10:16 AM CDT [facility] Neutrophil Absolute 9.60(H) 2.01 - 7.14 x10E9/L 01/10/2018 10:16 AM CDT [facility] Lymphocytes Absolute 1.05(L) 1.07 - 3.94 x10E9/L 01/10/2018 10:16 AM CDT [facility] Monocytes Absolute 1.25(H) 0.26 - 1.07 x10E9/L 01/10/2018 10:16 AM CDT [facility] Eosinophils Absolute 0.05 0 - 0.47 x10E9/L 01/10/2018 10:16 AM CDT [facility] Basophils Absolute 0.04 0 - 0.08 x10E9/L 01/10/2018 10:16 AM CDT [facility] Immature Granulocytes Absolute 0.19(H) 0.00 - 0.06 x10E9/L 01/10/2018 10:16 AM CDT [facility] nRBC Auto 0 /100 WBC 01/10/2018 10:16 AM CDT [facility] Blood BLOOD SPECIMEN / Unknown Venipuncture / Unknown 01/10/2018 10:08 AM CDT 01/10/2018 10:11 AM CDT Gabriel Porter MD LAB - HEMATOLOGY ORD ERABLES [facility] [address] [place] [address] * (ABNORMAL) BASIC METABOLIC PANEL (CALCIUM TOTAL) (01/10/2018 10:08 AM CDT) Glucose 132(H) 74 - 106 mg/dL 01/10/2018 10:31 AM CDT [facility] Sodium 136 136 - 145 mmol/L 01/10/2018 10:31 AM CDT [facility] Potassium 3.8 3.5 - 5.1 mmol/L 01/10/2018 10:31 AM CDT [facility] Chloride 106 98 - 107 mmol/L 01/10/2018 10:31 AM CDT [facility] CO2 24 22 - 31 mmol/L 01/10/2018 10:31 AM CDT [facility] Calcium 8.8 8.5 - 10.1 mg/dL 01/10/2018 10:31 AM CDT [facility] Anion Gap 6(L) 8 - 16 mmol/L 01/10/2018 10:31 AM CDT [facility] BUN 15 7 - 21 mg/dL 01/10/2018 10:31 AM CDT [facility] Creatinine 1.20 0.50 - 1.30 mg/dL 01/10/2018 10:31 AM T [facility] eGFR by MDRD >60 >60 mL/min/1.7 3m2 01/10/2018 10:31 AM CDT [facility] eGFR by MDRD >60 >60 mL/min/1.7 3m2 01/10/2018 10:31 AM CDT [facility] Blood BLOOD SPECIMEN / Unknown Venipuncture / Unknown 01/10/2018 10:08 AM CDT 01/10/2018 10:11 AM CDT Gabriel Porter MD LAB - CHEMISTRY DANIEL ROONEY Performing Organization Address City/[facility] Co de Phone Number [facility] [address] [place] [address] * MAGNESIUM BLOOD (01/10/2018 10:08 AM CDT) Magnesium 2.2 1.6 - 2.6 mg/dL 01/10/2018 11:05 AM CDT [facility] Blood BLOOD SPECIMEN / Unknown Venipuncture / Unknown 01/10/2018 10:08 AM CDT 01/10/2018 10:11 AM CDT Heriberto Daniel PA-C LAB - CHEM ISTRY ORDERABLES Performing Organization Address [facility] de Phone Number [facility] [address] [place] [address] * EKG 12-LEAD (01/10/2018 8:22 AM CDT) Ventricular Rate 91 BPM [facility] Atrial Rate 91 BPM [facility] P-R Interval 124 ms [facility] QRS Duration ms 90 ms [facility] Q-T Interval ms 354 ms [facility] QTC Calculation (Bezet) 435 ms [facility] Calculated P [place] 49 degrees [facility] Calculated T [place] 20 degrees [facility] Interpretation EKG Sinus rhythm with Premature atrial complexes Cannot rule out Anterior infarct , age undetermined Abnormal ECG No previous ECGs available Confirmed by ZACK SIM MD ([id number]) on 01/11/2018 10:13:07 AM [facility] 01/10/2018 8:22 AM CDT 01/11/2018 10:13 AM CDT Gabriel Porter MD ECG ORDERABLES [facility] * [place] BIOPSY OF SKIN LESION, [place] BIOPSY, EACH ADDED LESION (11/05/2017 10:16 PM CDT) Narrative Cameron Christianson MD - 11/05/2017 10:16 PM CDT Juan Feliciano MD 10/18/2017 7:53 AM Shave Biopsy Risks, benefits and alternatives to shave biopsy were discussed with the patient. Pt understands the possibility for the following: Bleeding, infection, scar (100% chance), the possibility of non-diagnostic reading and the potential need for further testing or treatment, including surgical. Pt accepts all of above, verbal consent was obtained. Location: L helix, L medial canthus Skin prep: Alcohol Anesthesia: 1% lidocaine with epinephrine Hemostasis: Aluminum chloride & hyfrecaton Dressing and wound care discussed. Patient agrees to phone call for results and message if not available. Juan Feliciano MD [facility] Dermatology Resident, PGY-3 Cameron Christianson MD PROCEDURE/MINOR SURG ICAL ORDERABLES Care Teams Veterinary Medicine Teacher Relationship Specialty Start Date End Date Mike Llamas MD [address] [place] [address] PCP - General 05/01/21
--- OUTSIDE RECORDS SUMMARY | 2024-08-06 00:43 | XMS_ITS | Encounter Summary ---
Author Organization [facility] Address [address] [facility] [place] [address] Phone Care Team Providers Care Medical Services Assistant Name Role Phone Mike Llamas MD Primary Care Provider [phone] Reason for Visit * Reason Comments Medication Refill Encounter Details Date Type Department Care Team (Late st Contact Info) Description 11/06/2021 Refill [facility] - Gastroenterology - [place] [address] [place] [address] Veronika Moore Jessica, PAC [address] [place] [address] Medication Refill Social History Tobacco Use Types Packs/Day Years Used Date Smoking Tobacco: Never Smokeless Tobacco: Never Alcohol Use Standard Drinks/Week Comments Yes 1 (1 standard drink = 0.6 oz pur e alcohol) beer socially Sexually Active Control Partners Comments Yes Sex and Gender Information Value Date Recorded Sex Assigned at Not on file Legal Sex Male 10:59 PM CDT Gender Identity Not on file Sexual Orientation Not on file 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
--- OUTSIDE RECORDS SUMMARY | 2024-08-06 00:43 | XMS_ITS | Continuity of Care Document ---
Author Organization [facility] Address [address] [facility] [address] [address] Phone Care Team Providers Care Medical Billing Specialist Name Role Phone Pedro Luis Laguerre MD Unavailable Unavailable Procedures Procedure Date Postop followup visit Knee arthscpy mnsctmy medial or lat Office/outpatient visit,est, mod 2009 MRI lwr extrm joint, w/o contrast Office/outpatient visit,new, mod 2009 X-ray exam of knee, 1 or2 views 010 X-ray exam of both knees, standing Advance Directives Directive Yes / No Effective Date File Name No Information Encounters Encounter Description Practice Location Reason(s) For Visit Diagnoses Date Provider Providers Copied on Encounter [facility], [address] [place] [address], [id number], tel:[phone] [facility] TEAR MED MENISC KNEE-CURJOI NT PAIN-L/LEG [facility]. [address] [place] [address], [address], [id number], [place]. tel:[phone] Referring Provider: Pedro Luis Biggs, [address] [place] [address], [address] . tel:[phone] [facility], [address] [place] [address], [id number], tel:[phone] [facility] TEAR MED MENISC KNEE-CUR [facility]. [address] [place] [address], [id number], . tel:[phone] Referring Provider: Pedro Luis Biggs, [address] [place] [address] [address] [facility], [place], [address] . tel:[phone] Office[facility]pat ient visit,[facility], [address] [place] [address], [id number], tel:[phone] [facility] TEAR MENISCUS NEC-CURREN [facility]. [address] [place] [address], [address], [place], [place], [id number], [place]. tel:[phone] Referring Provider: Pedro Luis Biggs, [address] [place] [address], [place], [address] . tel:[phone] [facility], [address] [place] [address], [id number], tel:[phone] [facility] TEAR MED MENISC KNEE-CURSPR AIN MEDIAL COLLAT LIGJOINT EFFUSION-L/ LEG [facility]. [address] [place] [address], [address] , [place], [place], [id number], [place]. tel:[phone] Referring Provider: Pedro Luis Biggs, [address] [place] [address], [place], [address] . tel:[phone] Office/outpat ient visit,[facility], [facility], [address] [place] [address], [id number], [place] tel:[phone] [facility] TEAR MED MENISC KNEE-CURJOI NT PAIN-L/LEG [facility]. [address] [place] [address] [address], [place], [place], [id number], [place]. tel:[phone] Family History Family Member Type Diagnosis Age At Onset No Information Payers Payer name Insurance type Covered republican ID Jimmy silva(s) Yuly Blue Cross Blue Shiel [facility] [id number] Social History Type Description Quantity Date Captured Comments Sex Male Smoking Status No Information Chief Complaint And Reason For Visit No Information Reason For Referral Reason For Referral No Information History Of Present Illness Encounter Date Complaint History Of Prese nt Illness No Information Functional Status Date Functional Assessmen t No Information Instructions Date Instruction Additional Infor mation No Information Assessments Type Assessment Date No Information Patient Care Teams Name Effective Dates (start - stop) Status Members No Information
--- OUTSIDE RECORDS SUMMARY | 2024-08-06 00:43 | XMS_ITS | Clinical Summary ---
Author Organization [facility] Address [address], [facility] [address] [place] [address] Phone Care Team Providers Care Postal Supervisor Name Role Phone Mike Llamas MD Primary Care Provider [phone] Allergies Active Allergy Reactions Criticality Noted Date Comments Azathioprine Vomiting 12/19/2020 Medications tamsulosin (FLOMAX) 0.4 MG Capsule Take 0.4 mg by mouth nightly. Active Multiple Vitamin (MULTI-VITAMINS) Tablet Take 1 Tab by mouth. Active Calcium Carbonate (CALCIUM 600 PO) Take by mouth. Active Cyanocobalamin (VITAMIN B 12 PO) Take by mouth. Activ e irbesartan (AVAPRO) 75 MG Tablet 9 Active Testosterone 10 MG/ACT (2%) Gel by Transdermal route. Active sulfaSALAzine (AZULFIDINE) 500 MG TabletIndication s:Crohn's disease of colon without complication (HCC) Take 1 Tablet by mouth 4 times daily. 360 Tablet 1 Active ergocalciferol (VITAMIN D) 67774 UNIT Capsule Take 1 Capsule by mouth once a week. 12 Capsule 1 1 Active folic acid (FOLVITE) 1 MG TabletIndication s:Crohn's disease of colon without complication (HCC) TAKE 1 TABLET DAILY 90 Tablet 3 2 Active Active Problems Problem Noted Date Diagnosed Date Crohn's disease with complication 12/19/2020 Immunizations Immunization Administration Dates Next Due Covid-19, Mrna, Lnp-s, Pf, 30 Mcg/0.3 Ml Dose (Valdez rudolph) 09/11/2020,08/18/2020 Hepatitis A Vaccine 06/10/2015 Hepatitis B Vaccine 07/11/2015,06/10/2015 PUR HEP A ADULT IM 06/10/2015 PUR HEP B ADULT 3 DOSE 1 ML IM 07/11/2015,2015 Pneumococcal Vaccine Adult - 23 Valent 2 TDAP Vaccine 07/20/2016 Td Vaccine (preservative free) 08/15/2005 Family History Medical History Relation Name Comments Prostate Cancer Father prostate Hypertension Mother Migraines Mother Osteoarthritis Mother Relation Name Status Comments Father Mother Alive Social History Tobacco Use Types Packs/Day Years Used Date Smoking Tobacco: Never Smokeless Tobacco: Never Tobacco Cessation:Counseling Given: No Alcohol Use Standard Drinks/Week Comments Yes 1 (1 standard drink = 0.6 oz pur e alcohol) beer socially Sexually Active Control Partners Comments Yes Sex and Gender Information Value Date Recorded Sex Assigned at Not on file Legal Sex Male 10:59 PM CDT Gender Identity Not on file Sexual Orientation Not on file 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 Not on file Not on franklyn e Last Filed Vital Signs Vital Sign Reading Time Taken Comments Blood Pressure 122/78 12/19/2020 9:00 AM CDT Pulse 66 12/19/2020 9:00 AM CDT Temperature 36.7 C (98 F) 10/10/2020 3:22 PM CDT Respiratory Rate 18 12/19/2020 9:00 AM CDT Oxygen Saturation 98% 12/19/2020 9:00 AM CDT Inhaled Oxygen Concentration - - Weight 91.2 kg (201 lb) 12/19/2020 9:00 AM CDT Height 177.8 cm (5' 10 ) 12/19/2020 9:00 AM CDT Body Mass Index 28.84 12/19/2020 9:00 AM CDT Plan of Treatment Health Maintenance Due Date Last Done Comments Cologuard 2011 Immunochemical Fecal Occult Blood 2011 Zoster Immunization (1 of 2) 2011 Pneumococcal Immunization (50+ years) (2 of 2 - PCV) 11/20/2012 11/21/2011 Hepatitis B Immunization (3 of 3 - 19+ 3-dose series) 12/09/2015 07/11/2015, 07/11/2015, 06/10/2015, Additional history exists PSA Discussion 2016 Colonoscopy 07/03/2020 07/03/2018, 05/30/2015 Colorectal Cancer Screening 07/03/2020 Influenza Immunization (#1) 2024 SARS-COV-2 Immunization ( season) 2024 05/24/2021, 09/11/2020, 08/18/2020 Respiratory Syncytial Virus (RSV) Immunization (Adult) (1 - 1-dose 75+ series) 2036 07/03/2018, 05/30/2015 Pneumococcal Immunization Combined Discontinued 11/21/2011 DTaP/Tdap/Td Immunization Discontinued 07/20/2016, Hepatitis C Virus (HCV) Screening Completed 11/05/2018, 05/30/2015 Meningococcal Immunization (ACWY) Aged Out No longer eligible based on patient's age to complete this topic Rotavirus Immunization Aged Out No lo nger eligible based on patient's age to complete this topic Procedures Procedure Name Priority Date/Time Associated Diagnosis Comments HEPATITIS PANEL ACUTE (AHP) Routine 11/05/2018 Crohn's disease without complication, unspecified gastrointestinal tract location (HCC) COLONOSCOPY Routine 07/03/2018 from Last 3 Months or Most Recently Relevant to Health Maintenance Results * HEPATITIS PANEL ACUTE (AHP) (11/05/2018) Blood specimen (specimen) Barbara Topete POTLINE MONITOR, COFFEE PLANTATION WORKER HEMATOLOGY ORDERA BLES Final Result * COLONOSCOPY (07/03/2018) us Brad Wild DO PROCEDURE/MINOR SURGICAL ORDERA BLES Final Result from Last 3 Months or Most Recently Relevant to Health Maintenance Care Teams Postal Supervisor Relationship Specialty Start Date End Date Mike Llamas MD [address] [address] PCP - General Family Medicine 10/10/20
--- OUTSIDE RECORDS SUMMARY | 2024-08-06 00:43 | XMS_ITS | Encounter Summary ---
Author Organization [facility] Address [address] [place] [address] Phone Care Team Providers Care Entertainment Lawyer Name Role Phone Mike Llamas MD Primary Care Provider [phone] Reason for Visit * Reason Comments Medication Refill Encounter Details Date Type Department Care Team (Late st Contact Info) Description 10/31/2022 Refill [facility] - Gastroenterology 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 LMOM * Telephone Encounter - Chiquita José RN - 11/07/2022 2:18 PM CDT Patient needs appointment * Telephone Encounter - Uyen Gray RN - 11/01/2022 1:27 PM CDT Pharmacy requesting refill of: Requested Prescriptions Pending Prescriptions Disp Refills ??? folic acid (FOLVITE) 1 MG Tablet [Pharmacy Med Name: FOLIC ACID TABS 1MG] 90 Tablet 3 Sig: TAKE 1 TABLET DAILY Last fill: 11/07/2021 Patients last OV with GI: 12/19/2020 Next Office Visit with GI: None scheduled. Called patient to offer an appt. Left message for patient to call back. Folic acid pended. documented in this encounter Plan of Treatment Not on file documented as of this encounter Visit Diagnoses Diagnosis Crohn's disease of colon without complication (HCC) documented in this encounter Care Teams Entertainment Lawyer Relationship Specialty Start Date End Date Mike Llamas MD [address] [address] PCP - General Family Medicine 10/10/20 documented as of this encounter
--- OUTSIDE RECORDS SUMMARY | 2024-08-06 00:43 | XMS_ITS | Referral Summary ---
Author Organization [facility] Address [address] [facility] [address] Care Team Providers Care Tree Girdler Name Role Phone Mike Llamas MD Primary Care Provider [phone] Source Comments [facility],non-owned Affiliates and Associated Physician Practices is amultiple site organization consisting of ambulatory clinics and hospital sitesin [place], [place]. This disclosure is being madepursuant to the Care Everywhere program and may not contain all information available regarding this patient. 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] PROCEDURE PERFORMED: (Marcus 02/24/18) Left partial Glossectomy Allerderm graft 2 x 4 cm Seborrheic keratoses 10/18/2017 Neoplasm of uncertain behavior of skin 8 Multiple benign melanocytic nevi of upper and lower extremities and trunk 10/18/2017 Solar lentiginosis 10/18/2017 Benign neoplasm of left eyelid 10/18/2017 Immunizations Name Administration Dates Next Due iSoftStone primary monoval ent 12+ yr 0.3mL Purple cap 05/22/2021 HEP A VACCINE, ADULT 06/10/2015 HEP B VACCINE, ADULT 3 DOSE 07/11/2015, 6 INFLUENZA VACCINE 03/05/2022, 1,03/11/2020,2017 PNEUMOCOCCAL PPSV23 11/21/2011 TD (ADULT), 5 LF TETANUS TOX OID, ADSORBED, PF 08/15/2005 TDAP (7yrs+) 07/20/2016 Social History Tobacco Use Types Packs/Day Years [...] st Contact Info) Description 04/16/2025 1:00 PM BOSS DYER Office Visit [facility] - Dermatology [address] [facility] [place] [address] Cameron Christianson MD [address] [place] [address] Care Teams Tree Girdler Relationship Specialty Start Date End Date Miek Llamas MD [address] [place] [address] PCP - General 05/01/21
--- OUTSIDE RECORDS SUMMARY | 2024-08-06 00:43 | XMS_ITS | Referral Summary ---
Author Organization [facility] Address [address] [place] [address] Care Team Providers Care Technical Systems Architect Name Role Phone James Langston MD Unavailable [phone] Mike Llamas MD Primary Care Provider [phone] Allergies No known active allergies Medications irbesartan [...] situ of skin of antih elix 12/06/2017 Social History Tobacco Use Types Packs/Day Years Used Date Smoking Tobacco: Never Smokeless Tobacco: Never Alcohol Use Standard Drinks/Week Comments Yes 0 (1 standard drink = 0.6 oz pur e alcohol) rare Sex and Gender Information Value Date Recorded Sex Assigned at Not on file Legal Sex Male 8:49 AM 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 Gender Identity Not on file Sexual Orientation [...] 98.9 kg (218 lb) 05/17/2021 12:51 PM 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 Height 177.8 cm (5' 10 ) 02/21/2018 8:25 AM CDT Body Mass Index 31.28 02/21/2018 8:25 AM CDT Plan of Treatment Not on file Medical Devices Implanted Type Area Construction Grip Device Identifier Shelf Expiration Date Model / Serial / Lot [employer] [id number] Alloderm 4x2cm Allograft Medium Graft Skin - [id number] Implanted:Qty: 1 on 02/24/2018 by Nico Gallegos MD at [facility] Left: Tongue [employer] 12/01/2019 [id number] / / [id number] Description:No waste Insurance [facility] CHOICE PLUS ANTHEM ACCESS Care Teams Technical Systems Architect Relationship Specialty Start Date End Date Mike Llamas MD [address] [place] [address] PCP - General Family Medicine 05/18/20 James Langston MD [address] [address] 08/08/17
[2024-08-06 09:06] VITALS: BP 127/87; PULSE 69; RESP 18; TEMP 36.2; O2SAT 100; BMI 29.2
[2024-08-06] MEDS: LACTATED RINGERS 1,000 ML 150 ML IV CONT (09:16)
--- NOTE | 2024-08-06 10:05 | WPDANESEPPF ---
Anes - Initial Pre Proc Eval Procedure: Operation Date: 08/06/24 10:00 Proposed Procedures p Colonoscopy - Luis Fajardo MD Date/Time: 08/06/24 10:05 Surgeon: Luis Fajardo MD Pre Op Diagnosis: Personal hx colon polyps Patient Data Age: 64 Gender: M Height: 1.75 m Weight: 89.7 kg Last Vital Signs Temp 36.2 C L 08/06/24 09:06 Pulse 69 08/06/24 09:06 Resp 18 08/06/24 09:06 BP 127/87 08/06/24 09:06 Pulse Ox 100 08/06/24 09:06 O2 Del Method Room Air 08/06/24 09:06 Allergies Allergy/AdvReac Type Severity Reaction Status Date / Time No Known Allergies Allergy Verified 08/06/24 09:04 Home Medications ?Medication ?Instructions ?Recorded ?Confirmed ?Type calcium carb-vitamin D3 ER 600 mg 1 tablet PO DAILY 06/02/19 08/06/24 History (1,500 mg)-500 unit tablet,ER 24 hr folic acid 1 mg tablet 1 mg PO DAILY 06/02/19 08/06/24 History tjzkpehj-qn-uxyxt 300 mcg-K 60 1 tablet PO DAILY 03/14/21 08/06/24 History mcg-lycop 600 mcg-lutein 300 mcg tablet (Centrum Silver Men) irbesartan 75 mg tablet See Rx Instructions .Route 11/11/23 08/06/24 Rx .COMPLEX #90 tabs paroxetine HCl 20 mg tablet (Paxil) 20 mg PO DAILY #90 tabs 04/22/24 08/06/24 Rx testosterone cypionate 200 mg/mL 200 mg IM .bi weekly #10 mL 04/22/24 08/06/24 Rx intramuscular oil tamsulosin 0.4 mg capsule 0.4 mg PO DAILY #90 caps 04/29/24 08/06/24 Rx Patient hx anesthesia problems: none Family hx anesthesia problems: none Results Review: All pre-operative results and documents have been reviewed as part of the pre-operative evaluation. [facility] Past Medical History Medical History Premature ejaculation Irregular heart rhythm H/O tongue cancer Obesity Squamous cell carcinoma NAFLD (nonalcoholic fatty liver disease) Elevated glucose Low testosterone Elevated alanine aminotransferase (ALT) level Erectile dysfunction Dyslipidemia Crohn disease Hypertension Hypothyroidism determined by thyroid function test Oral cancer Squamous acanthoma of left external ear Surgical History Surgical History H/O medial meniscus repair of right knee History of tonsillectomy Family History Family History Mother Hypertension Family history of transient ischemic attacks Family history of cardiovascular disease Family history of coronary artery disease Father Malignant neoplasm of prostate Grandparent Malignant neoplasm of prostate Sibling Hypertension Spinal cord tumor Social History Social History Smoking status: Never smoker Second hand tobacco smoke exposure: Yes Alcohol intake: current Drinks per week: 1 Alcohol use details: Maybe 1 beer a week. 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 Gender identity (if verbalized by the patient): Male Spiritual care concerns: No Anes - Eval Final PreProcedure Day of Procedure 08/06/24 10:05 Patient weight: obese Heart: regular rate and rhythm Lungs: clear to auscultation Airway: Mallampati scale class II Neurological: alert and oriented Last oral intake: >/= 8 hours ASA classification: III Emergent: no Anesthetic plan: proceed Anesthesia type and monitoring: general and standard monitoring Results Review: All pre-operative results and documents have been reviewed as part of the pre-operative evaluation. Informed Consent: The patient's anesthetic plan and its attendant risks and benefits were discussed with the patient/family/POA. Questions were solicited and answers provided to the satisfaction of the patient/family/POA.
--- NOTE | 2024-08-06 10:06 | PM.IMHP ---
H&P: HPI History of Present Illness Date/Time: 08/06/24 10:06 Chief Complaint: History of colon polyps Narrative: The patient has a history of colonic polyps, the last colonoscopy was approximately 5 years ago. there is a questionable history of Crohn's disease made several years ago, however during his last colonoscopy there was no evidence of inflammatory bowel disease. Review of Systems Review of Systems: All systems reviewed & are unremarkable except as noted in HPI and below PMFSH Past Medical History Medical History Premature ejaculation Irregular heart rhythm H/O tongue cancer Obesity Squamous cell carcinoma NAFLD (nonalcoholic fatty liver disease) Elevated glucose Low testosterone Elevated alanine aminotransferase (ALT) level Erectile dysfunction Dyslipidemia Crohn disease Hypertension Hypothyroidism determined by thyroid function test Oral cancer Squamous acanthoma of left external ear Surgical History Surgical History H/O medial meniscus repair of right knee History of tonsillectomy Family History Family History Mother Hypertension Family history of transient ischemic attacks Family history of cardiovascular disease Family history of coronary artery disease Father Malignant neoplasm of prostate Grandparent Malignant neoplasm of prostate Sibling Hypertension Spinal cord tumor Social History Social History Smoking status: Never smoker Second hand tobacco smoke exposure: Yes Alcohol intake: current Drinks per week: 1 Alcohol use details: Maybe 1 beer a week. 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 Gender identity (if verbalized by the patient): Male Spiritual care concerns: No Meds Home Medications and Allergies Home Medications ?Medication ?Instructions ?Recorded ?Confirmed ?Type calcium carb-vitamin D3 ER 600 mg 1 tablet PO DAILY 06/02/19 08/06/24 History (1,500 mg)-500 unit tablet,ER 24 hr folic acid 1 mg tablet 1 mg PO DAILY 06/02/19 08/06/24 History [id number]-su-wborw 300 mcg-K 60 1 tablet PO DAILY 03/14/21 08/06/24 History mcg-lycop 600 mcg-lutein 300 mcg tablet (Centrum Silver Men) irbesartan 75 mg tablet See Rx Instructions .Route 11/11/23 08/06/24 Rx .COMPLEX #90 tabs paroxetine HCl 20 mg tablet (Paxil) 20 mg PO DAILY #90 tabs 04/22/24 08/06/24 Rx testosterone cypionate 200 mg/mL 200 mg IM .bi weekly #10 mL 04/22/24 08/06/24 Rx intramuscular oil tamsulosin 0.4 mg capsule 0.4 mg PO DAILY #90 caps 04/29/24 08/06/24 Rx Allergies Allergy/AdvReac Type Severity Reaction Status Date / Time No Known Allergies Allergy Verified 08/06/24 09:04 Vital Signs Vital Signs - 24 hr 08/06/24 09:06 Temperature 97.2 F L Pulse Rate 69 Respiratory Rate 18 Blood Pressure 127/87 Pulse Oximetry 100 Oxygen Delivery Room Air Exam Const: General: cooperative and healthy appearing Resp: Effort & Inspection: normal respiratory effort and able to speak in complete sentences Auscultation: clear to auscultation bilaterally Cardio: Rate: regular rate Rhythm: regular rhythm GI: Inspection: normal to inspection GI Palp: No No hepatosplenomegaly present Auscultation: normal bowel sounds Rectal Exam: deferred Skin: General skin exam: normal color Psych: Appearance: grossly normal Mental Status: mental status grossly normal Assessment and Plan Assessment and plan (1) History of colonic polyps: Code(s): Z86.0100 - Personal history of colon polyps, unspecified Status: Acute Assessment and Plan: The patient is deemed a good candidate for the procedure. Consent signed. Will proceed.
[2024-08-06 10:38] VITALS: BP 90/59; PULSE 78; RESP 18; O2SAT 96
[2024-08-06 10:48] VITALS: BP 95/67; PULSE 68; RESP 18; O2SAT 95
[2024-08-06 10:58] VITALS: BP 107/75; PULSE 66; RESP 18; O2SAT 96
== END 2024-08-06 11:05 | disposition home or self-care (01) ==
PROVIDERS: PCP Family Medicine; Referring Provider Internal Medicine Gastroenterology; Visit Provider Internal Medicine Gastroenterology
PROC: 0DJD8ZZ Inspection of Lower Intestinal Tract, Via Natural or Artificial Opening Endoscopic (ICD-10-PCS; CPT 45378; principal; 2024-08-06 10:00)
DX: K52.9 Noninfective gastroenteritis and colitis, unspecified (principal); K64.8 Other hemorrhoids; E66.9 Obesity, unspecified; Z68.29 Body mass index [BMI] 29.0-29.9, adult; Z86.0100 Personal history of colon polyps, unspecified
CPT/HCPCS: 45380; 88305; J2704; J7120

== ENCOUNTER 2025-05-11 05:54 | Outpatient (CLI) | payer BC, SELFPAY ==
--- OUTSIDE RECORDS SUMMARY | 2025-05-11 05:57 | XMS_ITS | Clinical Summary ---
Author Organization [facility] Address [address], [facility] [address] [place] [address] Phone Care Team Providers Care Hospice Patient Care Secretary Name Role Phone Mike Llamas MD Primary Care Provider [phone] Allergies Active Allergy Reactions Criticality Noted Date [...] TabletIndication s:Crohn's disease of colon without complication Take 1 Tablet by mouth 4 times daily. 360 Tablet 1 Active ergocalciferol (VITAMIN D) 37692 UNIT Capsule Take 1 Capsule by mouth once a week. 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 Not on file [...] 9:00 AM CDT Height 177.8 cm (5' 10) 12/19/2020 9:00 AM CDT Body Mass Index 28.84 12/19/2020 9:00 AM CDT Plan of Treatment Health Maintenance Due Date Last Done Comments Cologuard 2006 Immunochemical Fecal Occult Blood 2006 Zoster Immunization (1 of 2) 2011 Pneumococcal Immunization (50+ years) (2 of 2 - PCV) 11/20/2012 11/21/2011 Hepatitis B Immunization (3 of 3 - 19+ 3-dose series) 12/09/2015 07/11/2015, 07/11/2015, 06/10/2015, Additional history exists Colonoscopy 07/03/2020 07/03/2018, 05/30/2015 Colorectal Cancer Screening 07/03/2020 Influenza Immunization (#1) 2025 SARS-COV-2 Immunization ( season) 2025 05/24/2021, 09/11/2020, 08/18/2020 Respiratory Syncytial Virus (RSV) Immunization (Adult) (1 - 1-dose 75+ series) 2036 Pneumococcal Immunization Combined Discontinued 11/21/2011 DTaP/Tdap/Td Immunization Discontinued 07/20/2016, Hepatitis C Virus (HCV) Screening Completed 11/05/2018, 05/30/2015 Human Papillomavirus (HPV) Immunization Aged Out No longer eligible based on patient's age to complete this topic Meningococcal Immunization (ACWY) Aged Out No longer [...] (AHP) (11/05/2018) Blood specimen (specimen) Barbara Topete FABRICATION DEPARTMENT SUPERVISOR, BIOFUELS PLANT MANAGER HEMATOLOGY ORDERA BLES Final Result * COLONOSCOPY (07/03/2018) us Brad Wild DO PROCEDURE/MINOR SURGICAL ORDERA BLES Final Result from Last 3 Months or Most Recently Relevant to Health Maintenance Care Teams Hospice Patient Care Secretary Relationship Specialty Start Date End Date Mike Llamas MD [address] [address] PCP - General Family Medicine 10/10/20
--- OUTSIDE RECORDS SUMMARY | 2025-05-11 05:57 | XMS_ITS | Encounter Summary ---
Author Organization [facility] Address [address] [place] [address] Phone Care Team Providers Care Forms Analysis Manager Name Role Phone James Langston MD Unavailable [phone] James Langston MD Primary Care Provider + [phone] James Langston MD Primary Care Provider + [phone] Dejah Aburto MD Primary Care Provider + [phone] Mike Llamas MD Primary Care Provider + [phone] Encounter Details Date Type Department Care Team (Late st Contact Info) Description 02/19/2018 Telephone [facility] ([facility]) - [facility] [address] 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 Gender Identity Not on file Sexual Orientation Not on file documented as of this encounter Functional Status * Question Answer Date of Assessment Author BP Location Right arm 02/21/2018 8:31 AM Vicki Ford RN BP Method Automatic 02/21/2018 8:31 AM Vicki Ford RN * [place] Fall Risk Question Answer Date of Assessment Author History of Falling 0 02/21/2018 8:22 AM CDT Vicki Briseno RN Secondary Diagnosis 0 02/21/2018 8:22 AM CD T Vicki Briseno RN Ambulatory Aids 0 02/21/2018 8:22 AM CDT Vicki Luciano RN Intravenous Therapy/Heparin/Saline Lock 0 02/21/2018 8:22 AM CDT Cameron Briseno RN Gait/Transferring 0 02/21/2018 8:22 AM CDT Vicki Briseno RN Mental Status 0 02/21/2018 8:22 AM CDT Quentin erVicki RN * Question Answer Date of Assessment Author BP Location Right arm 02/21/2018 8:31 AM Vicki Ford RN BP Method Automatic 02/21/2018 8:31 AM Vicki Ford RN * Assistive Devices Question Answer Date of Assessment Author Assistive Devices/DME Eyeglasses 02/21/2018 8:22 AM ALEMT Vicki Briseno RN documented as of this encounter Plan of Treatment Not on file documented as of this encounter Visit Diagnoses Not on filedocumented in this encounter Care Teams Forms Analysis Manager Relationship Specialty Start Date End Date James Langston MD [address] [place] [address] PCP - General 08/08/17 02/23/18 James Langston MD [address] [place] [address] PCP - General 02/24/18 04/15/19 Dejah Aburto MD [address] [place] [address] PCP - General Family Practice 04/16/19 05/17/20 Mike Llamas MD [address] [place] [address] PCP - General Family Medicine 05/18/20 James Langston MD [address] [place] [address] 08/08/17 documented as of this encounter
--- OUTSIDE RECORDS SUMMARY | 2025-05-11 05:57 | XMS_ITS | Encounter Summary ---
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
--- OUTSIDE RECORDS SUMMARY | 2025-05-11 05:57 | XMS_ITS | Clinical Summary ---
Author Organization [facility] [employer] Address [address] [facility] [place] [address] Care Team Providers Care Cpc Coder Name Role Phone Mike Llamas MD Primary Care Provider [phone] Source Comments [facility] [employer],non-owned Affiliates and Associated Physician Practices is amultiple site organization consisting of ambulatory clinics and hospital sitesin [place], [place], [place] and [place]. This disclosure is being madepursuant to the Care Everywhere program and may not contain all information available regarding this patient. Last updated 18.[facility] [employer] Allergies Active Allergy Reactions Criticality Noted Date Comments Azathioprine Vomiting 12/19/2020 Medications * Be aware that medications may not be up to date on this document. Alwaysverify current medications with the patient. 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 - Dermatology [address] [place] [phone] Cameron Christianson MD Melanocytic nevi of trunk (Primary Dx); History of nonmelanoma skin cancer; Seborrheic keratosis; Actinic keratosis; Lentigines 04/20/2025 Travel 04/12/2025 Travel from Last 3 Months Immunizations Immunization Administration Dates Next Due [employer] [address] primary monoval ent 12+ yr 0.3mL Purple [...] at Not on file Legal Sex Male 5:49 PM CDT Gender Identity Not on file [...] 8:16 AM CDT Height 177.8 cm (5' 10) 01/10/2018 8:16 AM CDT Body Mass Index 28.7 01/10/2018 8:16 AM CDT Plan of Treatment Upcoming Encounters Date Type Department Care Team (Late st Contact Info) Description 04/26/2026 2:00 PM SPRING TACKER Office Visit [facility] - Dermatology [facility] [facility] [place] [address] Cameron Christianson MD [facility] [facility] [address] [place] [address] Health Maintenance Due Date Last Done Comments COLOGODILIARD (AGES 45-75) - COLON CA SCREENING 1961 [...] - 19+ 3-dose series) 12/09/2015 07/11/2015, 06/10/2015 DEPRESSION SCREENING 06/03/2024 COVID-19 VACCINE ( season) 2025 05/22/2021, 09/11/2020, 08/18/2020 INFLUENZA VACCINE (#1) 2025 , 03/03/2021, 04/11/2020, Additional history exists DTAP/TDAP/TD VACCINES (3 - Td or Tdap) 07/20/2026 07/20/2016, 08/15/2005 Respiratory Syncytial Virus (RSV) Vaccine Pt: or over 60 yrs (1 - 1-dose 75+ series) 2036 HIB VACCINE Aged Out No longer eligi ble based on patient's age to complete this topic HPV VACCINE Aged Out No longer eligi ble based on patient's age to complete this topic MENINGOCOCCAL (Group B) VACCINE SHARED DECISION-MAKING Aged Out No longer eligible based on patient's age to complete this topic MENINGOCOCCAL GROUPS A/C/Y/W VACCINE Aged Out No longer eligible based on patient's age to complete this topic Procedures Procedure Name Priority Date/Time Associated Diagnosis Comments [place] DESTROY PREMALIG LESION, 2-14 Routine 04/20/2025 1:54 PM SPRING TACKER Actinic keratosis [place] DESTROY PREMALIG LESION, 1ST LESION Routine 04/20/2025 1:54 PM SPRING TACKER Actinic keratosis from Last 3 Months Results * [place] DESTROY PREMALIG LESION, 1ST LESION, [place] DESTROY PREMALIG LESION, 2-14 (04/20/2025 1:54 PM SPRING TACKER) Narrative Cameron Christianson MD - 04/20/2025 1:54 PM SPRING TACKER Cameron Christianson MD 04/20/2025 2:09 PM Diagnosis and treatment options discussed for AKs. Verbal consent obtained. Cryotherapy (Liquid Nitrogen) performed to 8 lesions for 6-7 seconds each. Number of cycles: 1. Wound care reviewed and post-cryotherapy handout given. Latrell Daugherty MD Dermatology Resident, PGY-4 04/20/2025 1:54 PM us Cameron Christianson MD PROCEDURE/MINOR SURGICAL ORDERA BLES Final Result from Last 3 Months Insurance [facility] Care Teams Cpc Coder Relationship Specialty Start Date End Date Mike Llamas MD [address] [place] [id number] PCP - General 05/01/21
--- OUTSIDE RECORDS SUMMARY | 2025-05-11 05:57 | XMS_ITS | Clinical Summary ---
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 12/06/2017 Surgical History Surgery Date Site/Laterality Comments NECK DISSECTION 08/12/2017 PARTIAL GLOSSECTOMY 08/12/2017 Left TONSILLECTOMY Medical History Medical History Date Comments Personal history of malignant neoplasm History of malignant neoplasm - (Added by TW Conv) BPH (benign prostatic hyperplasia) Crohn's disease (HCC) Family History Medical History Relation Name Comments Prostate cancer Father Family histo ry of malignant neoplasm of prostate - (Added by TW Conv) Coronary artery disease Mother Other Mother H/O heart bypas s surgery - (Added by TW Conv) Heart attack Paternal Grandmother Relation Name Status Comments Father Mother Paternal Grandmother Social History Tobacco Use Types Packs/Day Years Used Date Smoking Tobacco: Never Smokeless Tobacco: Never Alcohol Use Standard Drinks/Week Comments Yes 0 (1 standard drink = 0.6 oz pur e alcohol) rare Sex and Gender Information Value Date Recorded Sex Assigned at Not on file 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 Gender Identity Not on file Sexual Orientation [...] 98.9 kg (218 lb) 05/17/2021 12:51 PM NETWORK ASSOCIATE Height 177.8 cm (5' 10) 02/21/2018 8:25 AM CDT Body Mass Index 31.28 02/21/2018 8:25 AM CDT Plan of Treatment Health Maintenance Due Date Last Done Comments Colon Cancer Screening-Colonoscopy 1960 Depression Screening 1961 Hepatitis C Screening 1961 Prostate Cancer Screening-PSA 1961 Regular Well Visit/Exam 18-64 1979 Zoster Vaccine (1 of 2) 1980 Pneumococcal vaccine <65 (2 of 2 - PCV) 11/20/2012 11/21/2011 Covid-19 Vaccine (4 - 2024-2 6 season) 2025 05/22/2021, 09/11/2020, 08/18/2020 Influenza Vaccine (#1) 2025 , 03/03/2021, 03/11/2020, Additional history exists DTaP/Tdap/Td Vaccine (2 - Td or Tdap) 07/20/2026 07/20/2016, 08/15/2005 Hepatitis B Screening Completed 07/11/2015, 016 Medical Devices Implanted Type Area Ux Researcher Device Identifier Shelf Expiration Date Model / Serial / Lot [employer] [id number] Alloderm 4x2cm Allograft Medium Graft Skin - [id number] Implanted:Qty: 1 on 02/24/2018 by Nico Gallegos MD at [facility] Left: Tongue [employer] 12/01/2019 [id number] / / [id number] Description:No waste Insurance [facility] CHOICE PLUS ANTHEM ACCESS Care Teams Dot Compliance Manager Relationship Specialty Start Date End Date Mike Llamas MD [address] [place] [address] PCP - General Family Medicine 05/18/20 James Langston MD [address] [place] [address] 08/08/17
--- NOTE | 2025-05-11 06:43 | SUR.OPER ---
Patient brought to GI Lab. Instructions for patient undergoing Capsule Endoscopy reviewed with patient. Consent form signed. Sensor array applied to patient's abdomen and connected to recorded. Patient swallowed capsule with 2 cups of water infused with Simethicone. Patient instructed they may have clear liquids at 0830 this AM and eat or drink at 1030 this AM. Patient instructed to return to GI Lab at 1500 this afternoon for removal of recording device and to call [phone] or to return to the hospital if any nausea and vomiting or abdominal pain is experienced.
== END 2025-05-11 05:55 | disposition home or self-care (01) ==
LOC: ANHENDO 05:55
PROVIDERS: PCP Family Medicine; Referring Provider Internal Medicine Gastroenterology; Visit Provider Internal Medicine Gastroenterology
PROC: (CPT 91110; principal; 2025-05-11 07:00)
DX: K50.80 Crohn's disease of both small and large intestine without complications (principal)
CPT/HCPCS: 91110

== ENCOUNTER 2025-05-12 07:08 | Inpatient (IN) | payer BC, SELFPAY ==
[2025-05-12] VITALS (18 sets, daily range): BP systolic 115–153; BP diastolic 63–98; PULSE 76–112; RESP 13–25; TEMP 36.2–37.1; O2SAT 90–100; BMI 30.5
--- NOTE | ~2025-05-12 | XR_ITS ---
Examination: XR abdomen gastric tube insert Clinical History: ng tube placement Comparison: CT abdomen and pelvis earlier same day Technique: 2 views AP upright abdomen Findings/impression: 1. NG tube within stomach. 2. Persistent scattered enteric gas. Reviewed, dictated and finalized at location R. RIAL CHASER
--- NOTE | ~2025-05-12 | CT_ITS ---
EXAM/PROCEDURE: CT abdomen pelvis w con HISTORY: pt swallowed endoscopy pill cam yesterday-periumbilical pain COMPARISON: November 10, 2018 TECHNIQUE: Contrast-enhanced CT abdomen pelvis FINDINGS: In the lower chest, partially visualized ascending thoracic aorta is mildly aneurysmal measuring approximately 4.7 cm at the level of the right pulmonary artery.. Coronary artery calcifications noted. Heart size normal. Mild fibrotic/atelectatic appearing changes in the right lung base. The lung bases are otherwise clear. Within the abdomen and pelvis, metallic foreign body measuring approximately 1.9 x 1.5 x 1.5 cm is present in the distal ileum as seen on image 1:30 series 3. Moderately severe wall thickening of the small bowel is present in this area, and the proximal loops of small bowel are fluid-filled and mildly distended measuring up to 3.6 cm. There is also fluid in the right hemicolon. The large bowel is largely nondistended. No AAA. No hydroureteronephrosis or grossly inflamed appendix. Trace amount of free fluid in the lower pelvis. No free air or pneumatosis. Urinary bladder wall may be slightly thickened. Prostate normal in appearance. Adrenal glands spleen stomach pancreas and liver appear normal. Cholelithiasis with no gross CT evidence of acute cholecystitis. No bulky mesenteric or retroperitoneal lymphadenopathy or masses seen. Diffuse degenerative changes throughout the bones. IMPRESSION: 1. Metallic device/foreign body in the distal ileum consistent with enteric video device. Small bowel wall thickening in this area with proximal distended small bowel could represent mechanical/inflammatory enteritis with proximal ileus. Developing small bowel obstruction however may have a similar appearance. 2. Ascending thoracic aortic aneurysm measuring 4.7 cm at the level of the right pulmonary artery. The thoracic aorta is only partially visualized on this abdominal/pelvic CT. 3.: Cholelithiasis with no gross CT evidence of acute cholecystitis. Reviewed, dictated and finalized at location A. COVERER IMPRESSION: 1. Metallic device/foreign body in the distal ileum consistent with enteric vid eo device. Small bowel wall thickening in this area with proximal distended sma ll bowel could represent mechanical/inflammatory enteritis with proximal ileus. Developing small bowel obstruction however may have a similar appearance. 2. Ascending thoracic aortic aneurysm measuring 4.7 cm at the level of the righ t pulmonary artery. The thoracic aorta is only partially visualized on this abd ominal/pelvic CT. 3.: Cholelithiasis with no gross CT evidence of acute cholecystitis.
--- NOTE | ~2025-05-12 | XR_ITS ---
Examination: XR abdomen/kub 1V Clinical History: abdominal discomfort Comparison: CT scan 05/12/2025 Technique: Portable AP supine abdomen Findings/impression: 1. Persistent high-grade small bowel obstruction. 2. Gaseous gastric distention. 3. Enteric video capsule no longer identified. 4. Gallstones. Reviewed, dictated and finalized at location R. ECTOR RAW QUARTZ
[2025-05-12] MEDS: SODIUM CHLORIDE 0.9% IV 1,000 ML 999 ML IV CONT (07:22)
[2025-05-12] MEDS: ONDANSETRON INJ 4 MG/2 ML VIAL IV PUSH ×2 (07:23→10:08)
[2025-05-12] MEDS: MORPHINE SULFATE (*CRX) 4 MG/ML INJ IV PUSH ×2 (07:24→10:11)
[2025-05-12 07:29] LABS: Hematocrit 54.2 % (42.0-52.0); Hemoglobin 18.5 g/dL (14.0-18.0); Immature Granulocyte Percent A 0.6 % (0-0.5); Lymphocytes Absolute Auto 3.56 K/mm3 (0.9-3.2); Mean Corpuscular HGB Conc 34.1 g/dl (32-36); Mean Corpuscular Hemoglobin 30.4 pg (26-34); Mean Corpuscular Volume 89.0 fl (80-100); Nucleated Red Blood Cells Absolute Auto 0.000 K/mm3 (0.0-0.012); Nucleated Red Blood Cells Perc 0.0 % (0.0-0.2); Platelet Count Result 285 k/mm3 (150-375); Red Blood Count 6.09 M/mm3 (4.6-6.20); White Blood Count 18.9 K/mm3 (4.5-10.0)
[2025-05-12 07:42] LABS: Alanine Aminotransferase 39 U/L (6-50); Albumin Level 5.1 g/dL (3.5-5.1); Alkaline Phosphatase 92 U/L (38-126); Anion Gap 10 mmol/L (4-12); Aspartate Amino Transferase 40 U/L (17-59); Bilirubin,Total 2.7 mg/dL (0.2-1.3); Blood Urea Nitrogen 17 mg/dL (9-20); Calcium 10.4 mg/dL (8.4-10.2); Carbon Dioxide 27 mmol/L (22-30); Chloride 100 mmol/L (98-107); Estimated CRCL calculation 60 ml/min; Estimated Glomerular Filt Rate 57; Glucose 156 mg/dL (65-110); Lipase 53 U/L (23-300); Potassium 4.5 mmol/L (3.4-5.0); Sodium 137 mmol/L (137-145); Total Protein 9.1 g/dL (6.3-8.2)
[2025-05-12 07:49] LABS: INR 1.0; Partial Thromboplastin Time 27.2 Seconds (22.3-36.8); Prothrombin Time 12.7 Seconds (11.1-14.7)
--- NOTE | 2025-05-12 09:40 | ED_ITS ---
HPI - Abdominal Pain General Chief Complaint: Abdominal Pain Stated Complaint: abd pain Time Seen by Provider: 05/12/25 07:14 History of Present Illness HPI narrative: Patient is a 64-year-old male who presents ER with severe abdominal pain as well as nausea vomiting. He underwent camera endoscopy yesterday and is not yet passed the device. No history of bowel obstruction. He has history of Crohn's disease. No fevers or chills or sweats. No alleviating factors. Related Data Allergies Allergy/AdvReac Type Severity Reaction Status Date / Time No Known Allergies Allergy Verified 05/12/25 07:21 Review of Systems 2 Review of Systems: All systems reviewed & are unremarkable except as noted in HPI and below Constitutional: Constitutional: Reports no additional constitutional complaints Cardiovascular: Cardiovascular: Reports no additional cardiovascular complaints Respiratory: Respiratory: Reports no additional respiratory complaints Gastrointestinal: Gastrointestinal: Reports no additional gastrointestinal complaints Genitourinary: Genitourinary: Reports no additional male genitourinary complaints [facility] Past Medical History Medical History (Updated 05/12/25 @ 19:10 by Mak Lance MD) Otitis media Cerumen impaction Impacted cerumen of both ears Chest discomfort Premature ejaculation Irregular heart rhythm H/O tongue cancer Obesity Squamous cell carcinoma NAFLD (nonalcoholic fatty liver disease) Elevated glucose Low testosterone Elevated alanine aminotransferase (ALT) level Erectile dysfunction Dyslipidemia Crohn disease Hypertension Hypothyroidism determined by thyroid function test Oral cancer Squamous acanthoma of left external ear Surgical History Surgical History H/O medial meniscus repair of right knee History of tonsillectomy Family History Family History Mother Hypertension Family history of transient ischemic attacks Family history of cardiovascular disease Family history of coronary artery disease Father Malignant neoplasm of prostate Grandparent Malignant neoplasm of prostate Sibling Hypertension Spinal cord tumor Social History Social History Smoking status: Former smoker (tried as teen however, never smoked regularly per pt or chewed tobacco) Second hand tobacco smoke exposure: Yes Alcohol intake: current Drinks per week: 1 Alcohol use details: Maybe 1 beer a week. 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 Gender identity (if verbalized by the patient): Male Spiritual care concerns: No Exam 2 Narrative: GENERAL: Uncomfortable-appearing, well-nourished, and in no acute distress. HEAD: Normocephalic, atraumatic. ENT: Mucous membranes moist. CHEST: Clear to auscultation. No respiratory distress. HEART: Regular rate and rhythm. Normal peripheral pulses. ABDOMEN: Distended abdomen with diffuse guarding. EXTREMITIES: Normal range of motion. No edema. SKIN: Warm, diaphoretic, no rash. NEURO: Alert and oriented x3. PSYCH: Normal mood and affect. Course Course Emergency Course: Discussed with GI on-call. Recommend consulting surgery as this will likely need to go the OR. Dr. Su has accepted the patient and will take the patient to the OR later. Patient aware diagnosis and treatment plan. He is NPO. Vital Signs Vital signs: Vital Signs Temperature 97.7 F 05/12/25 07:14 Pulse Rate 87 05/12/25 07:14 Respiratory Rate 18 05/12/25 07:14 Blood Pressure 115/91 H 05/12/25 07:14 Pulse Oximetry 98 05/12/25 07:14 Temperature 97.1 F L 05/12/25 18:36 Pulse Rate 86 05/12/25 19:00 Respiratory Rate 25 H 05/12/25 19:00 Blood Pressure 127/88 05/12/25 19:00 Pulse Oximetry 95 05/12/25 19:00 Oxygen Delivery Simple Face Mask 05/12/25 19:00 Oxygen Flow Rate 8 05/12/25 19:00 [facility] Differential Diagnosis Differential Diagnosis: Small bowel obstruction, perforated viscus, diverticulitis, sepsis Lab Data [facility] Lab Attestation statement: I personally reviewed the patient's lab results. 05/12/25 07:20 05/12/25 07:20 Labs: Lab Results 05/12/25 05/12/25 Range/Units 07:20 09:48 WBC 18.9 H (4.5-10.0) K/mm3 RBC 6.09 (4.6-6.20) M/mm3 Hgb 18.5 H D (14.0-18.0) g/dL Hct 54.2 H (42.0-52.0) % MCV 89.0 (80-100) fl MCH 30.4 (26-34) pg MCHC 34.1 (32-36) g/dl RDW 13.1 (11.5-14.5) % Plt Count 285 D (150-375) k/mm3 MPV 9.4 (7.4-10.4) fl Immature Gran % (Auto) 0.6 H (0-0.5) % Neut % (Auto) 70.6 (45.5-73.1) % Lymph % (Auto) 18.8 (18.3-44.2) % Addison % (Auto) 9.3 H (2.6-8.5) % Eos % (Auto) 0.4 (0-4.4) % Baso % (Auto) 0.3 (0.2-1.2) % Lymph # (Auto) 3.56 H (0.9-3.2) K/mm3 Addison # (Auto) 1.8 H (0.1-0.6) K/mm3 Eos # (Auto) 0.1 (0-0.3) K/mm3 Baso # (Auto) 0.1 (0.0-0.1) K/mm3 Abs Immat Gran (auto) 0.12 H (0.00-0.031) K/mm3 Absolute Neuts (auto) 13.3 H (1.3-6.7) K/mm3 Absolute Nucleated RBC 0.000 (0.0-0.012) K/mm3 Nucleated RBC % 0.0 (0.0-0.2) % PT 12.7 (11.1-14.7) Seconds INR 1.0 APTT 27.2 (22.3-36.8) Seconds Sodium 137 (137-145) mmol/L Potassium 4.5 (3.4-5.0) mmol/L Chloride 100 (98-107) mmol/L Carbon Dioxide 27 (22-30) mmol/L Anion Gap 10 (4-12) mmol/L BUN 17 (9-20) mg/dL Creatinine 1.28 (0.7-1.3) mg/dL Estim Creat Clear Calc 60 ml/min Estimated GFR 57 L (59 - ) Glucose 156 H (65-110) mg/dL Lactic Acid 3.1 H 1.7 (0.7-2.0) mmol/L Calcium 10.4 H (8.4-10.2) mg/dL Total Bilirubin 2.7 H (0.2-1.3) mg/dL AST 40 (17-59) U/L ALT 39 (6-50) U/L Alkaline Phosphatase 92 (38-126) U/L Total Protein 9.1 H (6.3-8.2) g/dL Albumin 5.1 (3.5-5.1) g/dL Lipase 53 (23-300) U/L Imaging Data Radiologist's impression: ITS Impressions Abdomen/Pelvis CT 05/12/25 08:23 IMPRESSION: 1. Metallic device/foreign body in the distal ileum consistent with enteric video device. Small bowel wall thickening in this area with proximal distended small bowel could represent mechanical/inflammatory enteritis with proximal ileus. Developing small bowel obstruction however may have a similar appearance. 2. Ascending thoracic aortic aneurysm measuring 4.7 cm at the level of the right pulmonary artery. The thoracic aorta is only partially visualized on this abdominal/pelvic CT. 3.: Cholelithiasis with no gross CT evidence of acute cholecystitis. Critical Care Time Critical Care Time Critical Care Time: Yes Time Type: Intermittent Initial evaluation, discuss w/ involved parties, attempting to gather old records: 10 minutes Documenting medical record: 5 minutes Review of results (EKG's, labs, imaging): 5 minutes Serial repeat bedside evaluation: 10 minutes Discussing case with multiple memebers of the care team and consultants: 10 minutes Total Critical Care Time: 40 Discharge Plan Discharge Clinical Impression: SBO (small bowel obstruction) Patient Disposition: Still a Patient Condition: Stable
--- NOTE | 2025-05-12 10:51 | PM.CNGS ---
Assessment and Plan Assessment and plan (1) Small bowel obstruction: Code(s): K56.609 - Unspecified intestinal obstruction, unspecified as to partial versus complete obstruction Status: Acute Assessment and Plan: Patient presents with a small-bowel obstruction secondary to a foreign body from a capsule endoscopy. The foreign body is in the distal ileum with small bowel wall thickening in this area, which could be related to infectious or inflammatory enteritis versus inflammatory bowel disease. He has leukocytosis with a WBC count of 18,000 and his lactic acid was initially elevated at 3.1 with repeat down to normal after receiving IV fluids. Will start him on empiric IV antibiotics preoperatively. He has diffuse tenderness and his abdomen is distended, but he does not have any diffuse peritoneal signs and no signs of perforation on the CT scan. Discussed the case with Dr. Su and we would recommend proceeding with diagnostic laparoscopy, possible laparotomy, possible bowel resection by Dr. Su under general anesthesia. Description of the procedure, risks, benefits, alternatives, and expected recovery were discussed. We discussed the possibility of having to perform a small bowel resection. The patient's questions were answered and he agrees to proceed. Plan to keep him NPO with NG tube decompression and IV fluids and proceed to the OR today. (2) Foreign body of small intestine: Code(s): T18.3XXA - Foreign body in small intestine, initial encounter Status: Acute Assessment and Plan: Capsule endoscopy started yesterday morning with ingestion around 6:15 a.m.. This is visible in the distal ileum on CT, causing a small-bowel obstruction. (3) Crohn disease: Qualifiers: Digestive disease complication type: without complication Gastrointestinal tract location: small and large intestine Qualified Code(s): K50.80 - Crohn's disease of both small and large intestine without complications Code(s): K50.90 - Crohn's disease, unspecified, without complications Status: Chronic Assessment and Plan: Reported history of Crohn's disease and follows with GI. (4) Elevated liver function tests: Code(s): R79.89 - Other specified abnormal findings of blood chemistry Status: Acute Plan I have discussed the patient's case, recommendations, and treatment plan with Dr. Su. History of Present Illness Consult details Consult date: 05/12/25 Reason for consult: other (SBO) Requesting physician: Nelly Ramos MD Narrative: This is a 64-year-old with history of tongue cancer s/p excision, reported history of Crohn's disease, and fatty liver disease, who we have been asked to see in consultation for small bowel obstruction. Patient reports a history of Crohn's disease and follows with GI. He reports having a colonoscopy earlier this year that was unremarkable. He is not taking any medications for Crohn's. 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 He swallowed the capsule yesterday around 6:15 a.m.. He reports feeling fine throughout the day. In the evening, he developed periumbilical abdominal pain. The pain was cramping in nature. He was able to go to sleep and slept through the night. He woke up this morning with worsening pain. He developed some bloating, nausea, and vomiting this morning. His pain progressed and eventually he came into the ED for evaluation. [place] [address], lactic acid 3.1 with repeat down to 1.7, total bilirubin 2.7, and other LFTs normal. In review of his records he does have mild hyperbilirubinemia in the past few years up to 2.4. CT scan of the abdomen and pelvis showed a metallic foreign body in the distal ileum consistent with the video device and small bowel wall thickening in this area with proximal distention of the small bowel representing either enteritis with proximal ileus versus developing small bowel obstruction, as well as cholelithiasis without any evidence of cholecystitis, and an ascending thoracic aortic aneurysm measuring 4.7 cm at the level of the right pulmonary artery. Our service was consulted and he is seen in the ER. No previous abdominal surgeries. Review of Systems Review of Systems: All systems reviewed & are unremarkable except as noted in HPI and below PMFSH Past Medical History Medical History (Updated 05/12/25 @ 10:56 by Bernarda Du APRN) Otitis media Cerumen impaction Impacted cerumen of both ears Chest discomfort Premature ejaculation Irregular heart rhythm H/O tongue cancer Obesity Squamous cell carcinoma NAFLD (nonalcoholic fatty liver disease) Elevated glucose Low testosterone Elevated alanine aminotransferase (ALT) level Erectile dysfunction Dyslipidemia Crohn disease Hypertension Hypothyroidism determined by thyroid function test Oral cancer Squamous acanthoma of left external ear Surgical History Surgical History H/O medial meniscus repair of right knee History of tonsillectomy Family History Family History Mother Hypertension Family history of transient ischemic attacks Family history of cardiovascular disease Family history of coronary artery disease Father Malignant neoplasm of prostate Grandparent Malignant neoplasm of prostate Sibling Hypertension Spinal cord tumor Social History Social History Smoking status: Former smoker (tried as teen however, never smoked regularly per pt or chewed tobacco) Second hand tobacco smoke exposure: Yes Alcohol intake: current Drinks per week: 1 Alcohol use details: Maybe 1 beer a week. 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 Gender identity (if verbalized by the patient): Male Spiritual care concerns: No Meds Home Medications and Allergies Home Medications ?Medication ?Instructions ?Recorded ?Confirmed ?Type testosterone cypionate 200 mg/mL 200 mg IM .bi weekly #30 mL 01/06/25 05/07/25 Rx intramuscular oil paroxetine HCl 20 mg tablet (Paxil) 20 mg PO DAILY #90 tabs 03/11/25 05/07/25 Rx tamsulosin 0.4 mg capsule 0.4 mg PO DAILY #90 caps 04/26/25 05/07/25 Rx Allergies Allergy/AdvReac Type Severity Reaction Status Date / Time No Known Allergies Allergy Verified 05/12/25 07:21 Vital Signs Vital Signs - 24 hr 05/12/25 07:14 05/12/25 07:53 05/12/25 10:28 Temperature 97.7 F Pulse Rate 87 77 100 Respiratory Rate 18 18 18 Blood Pressure 115/91 H 138/77 126/94 H Pulse Oximetry 98 99 94 Exam Const: General: comfortable and no acute distress Nutritional Appearance: average body habitus Orientation/consciousness: patient oriented x3 HENMT: Head: normocephalic and atraumatic Ears: hearing grossly normal bilaterally Mouth: Yes moist mucous membranes Eyes: General: appearance normal, both eyes and all related structures Pupils: Equal, round and reactive pupils present Neck: Neck: normal visual inspection and full ROM Resp: Effort & Inspection: no respiratory distress Auscultation: clear to auscultation bilaterally Cardio: Rate: regular rate Rhythm: regular rhythm Peripheral pulses: Peripheral pulses 2+ throughout GI: Inspection: distended and no scars GI Palp: Yes Soft to palpation, Yes Tenderness to palpation present (GI) (Diffusely tender), No Guarding due to palpation present (GI), Yes Hernia present umbilical < 3 cm (Umbilical defect C/W umbilical hernia) and No Rebound tenderness present Auscultation: absent bowel sounds Rectal Exam: deferred Skin: General skin exam: normal color Neuro: General: moves all extremities and no focal motor deficits Speech: normal speech Motor exam (neuro): 5/5 motor strength present throughout Extrem: General: normal to inspection and no edema Psych: Mental Status: mental status grossly normal Attitude: cooperative Insight: Good insight present (Psych) Judgement: Good judgement present (Psych) Results Labs 05/12/25 07:20 05/12/25 07:20 Labs: Abnormal lab results 05/12/25 Range/Units 07:20 WBC 18.9 H (4.5-10.0) K/mm3 Hgb 18.5 H D (14.0-18.0) g/dL Hct 54.2 H (42.0-52.0) % Immature Gran % (Auto) 0.6 H (0-0.5) % [place] % (Auto) 9.3 H (2.6-8.5) % Lymph # (Auto) 3.56 H (0.9-3.2) K/mm3 [place] # (Auto) 1.8 H (0.1-0.6) K/mm3 Abs Immat Gran (auto) 0.12 H (0.00-0.031) K/mm3 Absolute Neuts (auto) 13.3 H (1.3-6.7) K/mm3 Estimated GFR 57 L (59 - ) Glucose 156 H (65-110) mg/dL Lactic Acid 3.1 H (0.7-2.0) mmol/L Calcium 10.4 H (8.4-10.2) mg/dL Total Bilirubin 2.7 H (0.2-1.3) mg/dL Total Protein 9.1 H (6.3-8.2) g/dL Diabetes panel 05/12/25 Range/Units 07:20 Sodium 137 (137-145) mmol/L Potassium 4.5 (3.4-5.0) mmol/L Chloride 100 (98-107) mmol/L Carbon Dioxide 27 (22-30) mmol/L BUN 17 (9-20) mg/dL Creatinine 1.28 (0.7-1.3) mg/dL Glucose 156 H (65-110) mg/dL Calcium 10.4 H (8.4-10.2) mg/dL AST 40 (17-59) U/L ALT 39 (6-50) U/L Alkaline Phosphatase 92 (38-126) U/L Total Protein 9.1 H (6.3-8.2) g/dL Albumin 5.1 (3.5-5.1) g/dL Calcium panel 05/12/25 Range/Units 07:20 Calcium 10.4 H (8.4-10.2) mg/dL Albumin 5.1 (3.5-5.1) g/dL Pituitary panel 05/12/25 Range/Units 07:20 Sodium 137 (137-145) mmol/L Potassium 4.5 (3.4-5.0) mmol/L Chloride 100 (98-107) mmol/L Carbon Dioxide 27 (22-30) mmol/L BUN 17 (9-20) mg/dL Creatinine 1.28 (0.7-1.3) mg/dL Glucose 156 H (65-110) mg/dL Calcium 10.4 H (8.4-10.2) mg/dL Adrenal panel 05/12/25 Range/Units 07:20 Sodium 137 (137-145) mmol/L Potassium 4.5 (3.4-5.0) mmol/L Chloride 100 (98-107) mmol/L Carbon Dioxide 27 (22-30) mmol/L BUN 17 (9-20) mg/dL Creatinine 1.28 (0.7-1.3) mg/dL Glucose 156 H (65-110) mg/dL Calcium 10.4 H (8.4-10.2) mg/dL Total Bilirubin 2.7 H (0.2-1.3) mg/dL AST 40 (17-59) U/L ALT 39 (6-50) U/L Alkaline Phosphatase 92 (38-126) U/L Total Protein 9.1 H (6.3-8.2) g/dL Albumin 5.1 (3.5-5.1) g/dL All other labs normal. Imaging Additional studies: ITS Impressions Abdomen/Pelvis CT 05/12/25 08:23 IMPRESSION: 1. Metallic device/foreign body in the distal ileum consistent with enteric video device. Small bowel wall thickening in this area with proximal distended small bowel could represent mechanical/inflammatory enteritis with proximal ileus. Developing small bowel obstruction however may have a similar appearance. 2. Ascending thoracic aortic aneurysm measuring 4.7 cm at the level of the right pulmonary artery. The thoracic aorta is only partially visualized on this abdominal/pelvic CT. 3.: Cholelithiasis with no gross CT evidence of acute cholecystitis.
[2025-05-12] MEDS: SODIUM CHLORIDE 0.9% IV 1,000 ML 125 ML IV CONT (12:05)
[2025-05-12] MEDS: PIPERACILLIN/TAZOBACTAM SOD 3.375 GM in SODIUM CHLORIDE 0.9% IV 50 ML 100 ML IVPB ×2 (12:57→18:51)
--- NOTE | 2025-05-12 14:49 | P.PNAN_ITS ---
Anes - Initial Pre Proc Eval Procedure: Operation Date: 05/12/25 15:00 Proposed Procedures p Diagnostic Laparoscopy, Possible Laparotomy, - Chan Su MD s Possible Bowel Resection - Chan Su MD Date/Time: 05/12/25 14:49 Surgeon: Nelly Ramos MD Pre Op Diagnosis: SBO Patient Data Age: 64 Gender: M Height: 1.75 m Weight: 92.9 kg Last Vital Signs Temp 36.4 C L 05/12/25 14:47 Pulse 97 05/12/25 14:47 Resp 16 05/12/25 14:47 BP 143/93 H 05/12/25 14:47 Pulse Ox 98 05/12/25 14:47 O2 Del Method Room Air 05/12/25 14:47 Allergies Allergy/AdvReac Type Severity Reaction Status Date / Time No Known Allergies Allergy Verified 05/12/25 07:21 Home Medications ?Medication ?Instructions ?Recorded ?Confirmed ?Type testosterone cypionate 200 mg/mL 200 mg IM .bi weekly #30 mL 01/06/25 05/07/25 R x intramuscular oil paroxetine HCl 20 mg tablet (Paxil) 20 mg PO DAILY #90 tabs 03/11/25 05/07/25 Rx tamsulosin 0.4 mg capsule 0.4 mg PO DAILY #90 caps 05/07/25 Rx Laboratory Tests 05/12/25 05/12/25 05/12/25 07:20 09:48 14:34 WBC 18.9 H K/mm3 (4.5-10.0) RBC 6.09 M/mm3 (4.6-6.20) Hgb 18.5 H D g/dL (14.0-18.0) Hct 54.2 H % (42.0-52.0) MCV 89.0 fl (80-100) MCH 30.4 pg (26-34) MCHC 34.1 g/dl (32-36) RDW 13.1 % (11.5-14.5) Plt Count 285 D k/mm3 (150-375) MPV 9.4 fl (7.4-10.4) Immature Gran % (Auto) 0.6 H % (0-0.5) Neut % (Auto) 70.6 % (45.5-73.1) Lymph % (Auto) 18.8 % (18.3-44.2) [place] % (Auto) 9.3 H % (2.6-8.5) Eos % (Auto) 0.4 % (0-4.4) Baso % (Auto) 0.3 % (0.2-1.2) Lymph # (Auto) 3.56 H K/mm3 (0.9-3.2) [place] # (Auto) 1.8 H K/mm3 (0.1-0.6) Eos # (Auto) 0.1 K/mm3 (0-0.3) Baso # (Auto) 0.1 K/mm3 (0.0-0.1) Abs Immat Gran (auto) 0.12 H K/mm3 (0.00-0.031) Absolute Neuts (auto) 13.3 H K/mm3 (1.3-6.7) Absolute Nucleated RBC 0.000 K/mm3 (0.0-0.012) Nucleated RBC % 0.0 % (0.0-0.2) PT 12.7 Seconds (11.1-14.7) INR 1.0 APTT 27.2 Seconds (22.3-36.8) Sodium 137 mmol/L (137-145) Potassium 4.5 mmol/L (3.4-5.0) Chloride 100 mmol/L (98-107) Carbon Dioxide 27 mmol/L (22-30) Anion Gap 10 mmol/L (4-12) BUN 17 mg/dL (9-20) Creatinine 1.28 mg/dL (0.7-1.3) Estim Creat Clear Calc 60 ml/min Estimated GFR 57 L (59 - ) Glucose 156 H mg/dL (65-110) Lactic Acid 3.1 H mmol/L 1.7 mmol/L (0.7-2.0) (0.7-2.0) Calcium 10.4 H mg/dL (8.4-10.2) Total Bilirubin 2.7 H mg/dL (0.2-1.3) AST 40 U/L (17-59) ALT 39 U/L (6-50) Alkaline Phosphatase 92 U/L (38-126) Total Protein 9.1 H g/dL (6.3-8.2) Albumin 5.1 g/dL (3.5-5.1) Lipase 53 U/L (23-300) Blood Type Pending Antibody Screen Pending Patient hx anesthesia problems: none Family hx anesthesia problems: none Results Review: All pre-operative results and documents have been reviewed as part of the pre- operative evaluation. [facility] Past Medical History Medical History (Updated 05/12/25 @ 10:56 by Bernarda Du APRN) Otitis media Cerumen impaction Impacted cerumen of both ears Chest discomfort Premature ejaculation Irregular heart rhythm H/O tongue cancer Obesity Squamous cell carcinoma NAFLD (nonalcoholic fatty liver disease) Elevated glucose Low testosterone Elevated alanine aminotransferase (ALT) level Erectile dysfunction Dyslipidemia Crohn disease Hypertension Hypothyroidism determined by thyroid function test Oral cancer Squamous acanthoma of left external ear Surgical History Surgical History H/O medial meniscus repair of right knee History of tonsillectomy Family History Family History Mother Hypertension Family history of transient ischemic attacks Family history of cardiovascular disease Family history of coronary artery disease Father Malignant neoplasm of prostate Grandparent Malignant neoplasm of prostate Sibling Hypertension Spinal cord tumor Social History Social History Smoking status: Former smoker (tried as teen however, never smoked regularly per pt or chewed tobacco) Second hand tobacco smoke exposure: Yes Alcohol intake: current Drinks per week: 1 Alcohol use details: Maybe 1 beer a week. 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 Gender identity (if verbalized by the patient): Male Spiritual care concerns: No Anes - Eval Final PreProcedure Day of Procedure 05/12/25 14:49 Patient weight: obese Heart: regular rate and rhythm Lungs: clear to auscultation Airway: Mallampati scale class III Neurological: alert and oriented Last oral intake: >/= 8 hours ASA classification: III Emergent: no Anesthetic plan: proceed Anesthesia type and monitoring: general ETT and standard monitoring Results Review: All pre-operative results and documents have been reviewed as part of the pre-operative evaluation. Informed Consent: The patient's anesthetic plan and its attendant risks and benefits were discussed with the patient/family/POA. Questions were solicited and answers provided to the satisfaction of the patient/family/POA.
--- NOTE | 2025-05-12 15:40 | PM.IMHP2 ---
H&P: HPI History of Present Illness Date/Time: 05/12/25 15:40 Chief Complaint: abd pain and vomiting Narrative: 64 yo male with PMH of Crohn's disease, BPH who presented to the ER with abd pain and vomiting. Patient had capsule endoscopy yesterday by his GI, however about 7 pm in the evening he started having abd pain, periumbilical, 7/10 in intensity associated wtih episode of vomiting. For worsening abd pain he presented for acute eval. Denies any chest pain, SOB, dysuria, and no lightheadedness and no abd swelling. ER eval notable Vital signs stable and within normal limits Labs notable for WBC 18.9, Hb 18.5, Testosteone 19.6 CT AP showed ascending AA 4.7 cm, metallic device in danuta distal ileum coonsistent with enteric video device. GI adn Gen surgery consulted prior to admission. NG tube inserted for drainage Review of Systems Review of Systems: All other systems reviewed and negative except in the history above. [facility] Past Medical History Medical History (Updated 05/12/25 @ 10:56 by Bernarda Du APRN) Otitis media Cerumen impaction Impacted cerumen of both ears Chest discomfort Premature ejaculation Irregular heart rhythm H/O tongue cancer Obesity Squamous cell carcinoma NAFLD (nonalcoholic fatty liver disease) Elevated glucose Low testosterone Elevated alanine aminotransferase (ALT) level Erectile dysfunction Dyslipidemia Crohn disease Hypertension Hypothyroidism determined by thyroid function test Oral cancer Squamous acanthoma of left external ear Surgical History Surgical History H/O medial meniscus repair of right knee History of tonsillectomy Family History Family History Mother Hypertension Family history of transient ischemic attacks Family history of cardiovascular disease Family history of coronary artery disease Father Malignant neoplasm of prostate Grandparent Malignant neoplasm of prostate Sibling Hypertension Spinal cord tumor Social History Social History Smoking status: Former smoker (tried as teen however, never smoked regularly per pt or chewed tobacco) Second hand tobacco smoke exposure: Yes Alcohol intake: current Drinks per week: 1 Alcohol use details: Maybe 1 beer a week. 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 Gender identity (if verbalized by the patient): Male Spiritual care concerns: No Meds Home Medications and Allergies Home Medications ?Medication ?Instructions ?Recorded ?Confirmed ?Type testosterone cypionate 200 mg/mL 200 mg IM .bi weekly #30 mL 01/06/25 05/07/25 Rx intramuscular oil paroxetine HCl 20 mg tablet (Paxil) 20 mg PO DAILY #90 tabs 03/11/25 05/07/25 Rx tamsulosin 0.4 mg capsule 0.4 mg PO DAILY #90 caps 04/26/25 05/07/25 Rx Allergies Allergy/AdvReac Type Severity Reaction Status Date / Time No Known Allergies Allergy Verified 05/12/25 07:21 Vital Signs Vital Signs - 24 hr 05/12/25 07:14 05/12/25 07:53 05/12/25 10:28 Temperature 97.7 F Pulse Rate 87 77 100 Respiratory Rate 18 18 18 Blood Pressure 115/91 H 138/77 126/94 H Pulse Oximetry 98 99 94 Oxygen Delivery 05/12/25 11:23 05/12/25 12:45 05/12/25 13:33 Temperature Pulse Rate 108 H 103 H 112 H Respiratory Rate 17 18 18 Blood Pressure 122/98 H 122/87 123/88 Pulse Oximetry 91 92 96 Oxygen Delivery 05/12/25 14:47 Temperature 97.5 F L Pulse Rate 97 Respiratory Rate 16 Blood Pressure 143/93 H Pulse Oximetry 98 Oxygen Delivery Room Air Exam Narrative: General: alert and comfortable Eyes: EOMI, PERRLA ENNT External ears normal, Neck is supple, no masses, Respiratory systems: Clear to auscultation Cardiovascular S1, S2, normal rhythm, no murmur, rub, or gallop; no thrill or palpable murmurs on palpation. Gastrointestinal: soft, non-tender, and non-distended abdomen with no masses; BS present Skin: no rash, lesions, ulcerations, subcutaneous nodules or induration Musculoskeletal: no abnormality and no tenderness, normal ROM Neurologic: Alert and oriented x3, non focal Mental Status Exam: normal affect Results Labs Labs: Short CBC 05/12/25 Range/Units 07:20 WBC 18.9 H (4.5-10.0) K/mm3 Hgb 18.5 H D (14.0-18.0) g/dL Hct 54.2 H (42.0-52.0) % Plt Count 285 D (150-375) k/mm3 BMP 05/12/25 07:20 Sodium 137 Potassium 4.5 Chloride 100 Carbon Dioxide 27 BUN 17 Creatinine 1.28 Glucose 156 H Calcium 10.4 H Liver Function 05/12/25 Range/Units 07:20 Total Bilirubin 2.7 H (0.2-1.3) mg/dL AST 40 (17-59) U/L ALT 39 (6-50) U/L Alkaline Phosphatase 92 (38-126) U/L Albumin 5.1 (3.5-5.1) g/dL Assessment and Plan Assessment and plan (1) Small bowel obstruction: Code(s): K56.609 - Unspecified intestinal obstruction, unspecified as to partial versus complete obstruction Status: Acute Plan SBO CT AP showed metallic device in the distal ileum Patient had capsule endoscopy yesterday continue NG tube drainage COntineu IVF pending Gen surgery and GI monitor Polycythemia Hb 18.5 likely from testosterone Testosterone level mildly elevated Testosterone on hold continue IVF above, monitor Crohn's disease patient noted capsule endoscopy was administered yesterday monitor BPH Contineu home meds and monitor for urinary retention DVT prophylaxis on Sq Lovenox full code SDM: Rosario Berry Hospitalist [facility] Advance Care Plan I have confirmed that the patient's Advanced Care Plan is present, code status is documented, or surrogate decision maker is listed in patient medical record.: Yes Medication Reconciliation I have utilized all available resources to obtain, update and review the patients current medications (includes all prescriptions, OTC, herbals, cannabis, and nutritional supplements).: Yes
--- NOTE | 2025-05-12 15:44 | WPDHPUPDATE1 ---
History and Physical Update Update Date/Time: 05/12/25 15:44 History and Physical has been reviewed, including an updated exam of the patient. There are NO changes in the patient's condition. Risks, benefits, and alternatives have been discussed and questions answered. Patient agrees to proceed with procedure.
[2025-05-12] MEDS: LIDO 1%/EPINEPHRINE 1:100,000 20 ML VIAL 30 ML INFILTRATE (17:14)
--- NOTE | 2025-05-12 17:36 | S_PTH ---
PATIENT: Kennedy Berry LOC: [id number] U#:[id number] AGE/SX: 64/M ROOM: 253 RE05/12/[address]: Rik Tomlinson MD : 1960 BED: 01 DIS: 05/18/2025 SPEC #: [id number] RECD: 05/13/25 09:18 STATUS: DEVANTE REKarina #: [id number] AMY: 05/12/25 17:[address]: Chan Su DEPT: [facility] Surgical RECD BY: Cinthia Diaz ENTERED: 05/13/25 09:19 SP TYPE: Surgical OTHR DR: MD Markus Saxena MD Miek Brennan Llamas MD Tissues: A - Colon Segment NonTumor Procedures: Hematoxylin and Eosin Stain Gross and Microscopic Level 5
[2025-05-12] MEDS: LACTATED RINGERS 1,000 ML 30 ML IV CONT ×3 (18:36)
--- NOTE | 2025-05-12 18:38 | PM.OP ---
Procedure Note - Brief Procedure Note - Brief Date of procedure: 05/12/25 Distal small-bowel obstruction secondary to foreign body (endoscopic capsule), Crohn's disease. Post-op diagnosis: Other ( Distal small-bowel obstruction secondary to retained endoscopic capsule and ileal Crohn's stricture) Procedure performed: Diagnostic laparoscopy, conversion to open laparotomy with ileocecal bowel resection and stapled [id number] ileocolic anastomosis. Surgeon: Chan Su MD [employer] Cleaner: Ernst Garrett DO, Amy BILL, Abilio Naidu SA Anesthesia: GETA Implants: None Estimated blood loss (mL): 100 Drains: No Packing: No Pathology: Yes (Ileum, cecum, appendix to pathology) Complications: No immediate complications Condition: Stable Disposition: PACU
[2025-05-12] MEDS: fentaNYL CITRATE INJ (*CRX) 100 MCG/2 ML VIAL 25 MCG IV PUSH ×6 (18:59→19:50)
--- NOTE | 2025-05-12 19:40 | W.PM.PROC2 ---
Procedure Note - Detailed Date of Procedure 05/12/25 Pre-op Diagnosis Small-bowel obstruction secondary to retained endoscopic capsule foreign body, Crohn's disease. Post-op Diagnosis Other (High-grade ileal small-bowel obstruction secondary to Crohn stricture and retained endoscopic capsule form body.) Procedure Performed Diagnostic laparoscopy with conversion to open laparotomy with ileocecal bowel resection and [id number] stapled anti peristaltic ileocolic anastomosis. Surgeon Chan Su MD Cylinder Batcher Ernst Garrett DO Anesthesia General Indications Patient is a 64-year-old gentleman who has a history of Crohn's disease not currently on any medications who had a recent colonoscopy but then 2 days ago had a capsule endoscopy performed through the small bowel. Earlier today he presented to the emergency room with abdominal distension and severe abdominal pain. White blood cell count was elevated 18,000. CT scan abdomen pelvis was performed showing foreign body in the distal small bowel consistent with the endoscopic capsule with thickening of the ileum and high-grade small-bowel obstruction. He presents now for emergent surgical management. Findings The patient had active Crohn's disease of the ileum. It pretty much involved the last 2ft of the small bowel which was the whole terminal ileum. There was chronic thickening and stricturing of the small bowel this area with copious amounts of creeping fat enveloping the serosal surface of the small bowel. This extended to the ileocecal valve but cecum appeared to be normal. The appendix was very small and diminutive. There was no perforation of the bowel. There were no other areas of the small bowel or colon that seemed to be inflamed from Crohn's disease. I did palpate the endoscopic capsule within the terminal ileum and it was removed witin the resected specimen. Description of Procedure After informed consent was obtained patient brought to the operating room where he was placed in a supine position and general endotracheal anesthesia was administered. A Bañuelos catheter was placed to decompress the bladder. A nasogastric tube was already in place from the emergency room. The abdomen was then prepped and draped usual sterile fashion. A time-out was then performed correctly identifying the patient as well as the procedure to be performed. He was already on scheduled IV antibiotics. I 1st started by placing a 5mm Optiview port in the left upper quadrant. Once inside the abdomen insufflated to adequate pneumoperitoneum of 15mmHg of CO2. I then placed a 12mm supraumbilical trocar port under direct visualization and a 5mm infraumbilical trocar port in the midline. I then performed plastic laparoscopy to identify the terminal ileum. The whole terminal ileum appeared to be inflamed and thickened with copious amounts of creeping fat enveloping the serosa of the small bowel. This made it difficult to try to identify the capsule. At this point I then decided to convert to a open laparotomy. The laparoscopic instruments removed from the abdomen as were the ports and then I made a midline incision to incorporate the 2 midline port site incisions. Dissection carried down through the subcutaneous tissue electrocautery in the fascia was entered without difficulty. I then placed a [place] retractor to aid with visualization and exposure. At this point Dr. Garrett came into the operating room and I asked him to scrub in to assist since I was having some difficulty mobilizing the right ascending colon. I palpated the terminal ileum and it was severely strictured and I did find the capsule within the segment of stricturing small-bowel. I then proceeded to make a defect through the mesentery to the end of the jejunum where the bowel became normal in appearance without any inflammation or chronic thickness. There was no creeping fat in this area. I then divided the small bowel at the junction of the terminal ileum and jejunum with a MAHSA 75 stapler. This then ensured that the capsule would not travel proximal into the jejunum. With Dr. Garrett's assistance, I then proceeded to divide the lateral peritoneal attachments to the cecum and ascending colon. I was able to mobilize the cecum and ascending colon towards the midline. Some of the hepatocolic ligaments were divided but the whole hepatic flexure was not mobilized to the midline. This was done with a combination electrocautery and LigaSure energy device dissection. As the cecum appeared to be normal without evidence of inflammation I decided to perform only a ileocecal resection. Just distal to the cecum I made a defect through the mesentery to the ascending colon with electrocautery. The colon was then divided with a reload to the GI 75 stapler just distal to the cecum. The segment was then completely resected by division of the mesentery utilizing the LigaSure energy device. The specimen was then passed off table sent to pathology for examination. I then proceeded to restore continuity to the bowel by performing a stapled [id number] anti peristaltic ileocolic anastomosis. The into the jejunum was brought in approximation to the proximal ascending colon and 3-0 silk serosal stay sutures were placed to approximate the 2 ends of the bowel. The corner of the staple line on each end the bowel was then removed utilizing Metzenbaum scissors and then a reload to the GI 75 stapler was then used to perform a [id number] stapled anti peristaltic anastomosis and creating a common channel. The resulting opening in the top of the anastomosis was then closed utilizing a single firing of a TA 60 stapler. The anastomosis was widely patent. The ends of the bowel all appeared to be very viable. There is no bleeding or leaking from the staple line. I then closed the mesenteric defect utilizing a running 2-0 chromic suture. I then irrigated out the abdomen sterile saline solution. I checked the right pericolic gutter and it was hemostatic. The 2nd portion of the duodenum was inspected and it was without injury. I then irrigated out the abdomen sterile saline solution. Hemostasis was good. I then pulled the omentum down over the small bowel and then closed the abdomen by placement of a running #1 looped PDS suture which was started at each end incision and then run and they were tied together just above the umbilicus. The midline fascia closed easily without any tension. I then irrigated the subcutaneous tissues sterile saline solution and closed the subcutaneous tissues with a running 3-0 Vicryl suture. The skin edges on the incision with an approximate utilizing a running subcuticular 4-0 Monocryl suture. The small left upper quadrant trocar port incision was closed with the 4-0 Monocryl suture as well. The incisions were then cleaned the skin glue was applied. The patient tolerated the procedure well no complications. All sponges, needles, and instrument counts were correct at the end procedure. EBL was _100__cc. The patient was awakened and taken to recovery in stable and satisfactory condition. Implants None Estimated Blood Loss 100 Drains No Packing No Pathology Yes (2ft of ileum, appendix, cecum and very proximal ascending colon to pathology along with the retained foreign body capsule within the specimen.) Complications No immediate complications Condition Stable Disposition PACU [facility] Billing Surgery - Charge Forward: Surgery Billing
--- NOTE | 2025-05-12 20:20 | ADMGEN ---
This patient, Kennedy Berry, was admitted to 2 Medical Room 253-01 from PACU @2004. Patient/family oriented to hospital policies and general routines including ID bracelet, bed and alarms, visiting hours, pain management, procedures, bathroom and other care routines, personal items, smoking policy, room service/diet, and visiting hours. Information on how to activate the Rapid Response Team has been discussed. Patient/Family are encouraged to report perceived risks to care and to ask questions if they do not understand what they are told or what they should do. Report received from MARY GRACE Blas.
[2025-05-12] MEDS: MAG HYDROX/AL HYDROX/SIMETH 30 ML UDC PO (21:17)
[2025-05-12] MEDS: IBUPROFEN IV 800 MG/200 ML 800 MG/200 ML BAG 400 MG IVPB (21:17)
[2025-05-12] MEDS: HYDROmorphone HCL INJ (*CRX) 1 MG/ML SYR IV PUSH (21:19)
[2025-05-12] MEDS: diazePAM INJ (*CRX) 10 MG/2 ML SYRINGE 5 MG IV PUSH (21:19)
[2025-05-13] MEDS: PIPERACILLIN/TAZOBACTAM SOD 3.375 GM in SODIUM CHLORIDE 0.9% IV 50 ML 100 ML IVPB ×4 (00:15→17:08)
[2025-05-13] MEDS: LACTATED RINGERS 1,000 ML 125 ML IV CONT ×3 (00:46→17:22)
[2025-05-13 03:34] VITALS: BP 141/78; PULSE 93; RESP 17; TEMP 36.8; O2SAT 94
[2025-05-13] MEDS: MAG HYDROX/AL HYDROX/SIMETH 30 ML UDC PO ×3 (04:24→21:19)
[2025-05-13] MEDS: IBUPROFEN IV 800 MG/200 ML 800 MG/200 ML BAG 400 MG IVPB ×3 (04:24→19:02)
[2025-05-13 05:29] LABS: Hematocrit 45.4 % (42.0-52.0); Hemoglobin 15.0 g/dL (14.0-18.0); Immature Granulocyte Percent A 0.6 % (0-0.5); Lymphocytes Absolute Auto 1.18 K/mm3 (0.9-3.2); Mean Corpuscular HGB Conc 33.0 g/dl (32-36); Mean Corpuscular Hemoglobin 30.2 pg (26-34); Mean Corpuscular Volume 91.3 fl (80-100); Nucleated Red Blood Cells Absolute Auto 0.000 K/mm3 (0.0-0.012); Nucleated Red Blood Cells Perc 0.0 % (0.0-0.2); Platelet Count Result 225 k/mm3 (150-375); Red Blood Count 4.97 M/mm3 (4.6-6.20); White Blood Count 15.8 K/mm3 (4.5-10.0)
[2025-05-13 05:42] LABS: Alanine Aminotransferase 28 U/L (6-50); Albumin Level 3.8 g/dL (3.5-5.1); Alkaline Phosphatase 63 U/L (38-126); Anion Gap 8 mmol/L (4-12); Aspartate Amino Transferase 28 U/L (17-59); Bilirubin,Total 2.4 mg/dL (0.2-1.3); Blood Urea Nitrogen 20 mg/dL (9-20); Calcium 8.4 mg/dL (8.4-10.2); Carbon Dioxide 23 mmol/L (22-30); Chloride 106 mmol/L (98-107); Estimated CRCL calculation 67 ml/min; Estimated Glomerular Filt Rate > 60; Glucose 137 mg/dL (65-110); Potassium 4.2 mmol/L (3.4-5.0); Sodium 137 mmol/L (137-145); Total Protein 6.7 g/dL (6.3-8.2)
[2025-05-13] MEDS: ENOXAPARIN 40 MG/0.4 ML SYRINGE SUB-Q (09:13)
[2025-05-13 09:14] VITALS: RESP 18; O2SAT 94
[2025-05-13] MEDS: LIDOCAINE 5% PATCH 1 PATCH TRANSDERM (09:14)
[2025-05-13] MEDS: diazePAM INJ (*CRX) 10 MG/2 ML SYRINGE 5 MG IV PUSH ×2 (09:14→21:24)
--- NOTE | 2025-05-13 10:28 | P.PNGS_ITS ---
Progress Note: A&P Assessment and Plan (1) Small bowel obstruction: Code(s): K56.609 - Unspecified intestinal obstruction, unspecified as to partial versus complete obstruction Status: Acute Assessment and Plan: * Secondary to active Crohn's disease with an endoscopic capsule stuck in the distal ileum. S/p attempted laparoscopic converted to open ileocecal resection on 05/12/25. Awaiting return of bowel function. He has not had any output from his NG tube overnight. Will try clamping the NG tube this morning and keep him NPO for now. If he is able to tolerate a clamping trial, then we will plan on removing the NG and starting him on clear liquids. Continue IV fluids for now and IV analgesics. He also has a lidocaine patch and IV diazepam to help with postoperative pain control. Will plan to repeat labs again tomorrow. (2) Foreign body of small intestine: Code(s): T18.3XXA - Foreign body in small intestine, initial encounter Status: Acute Assessment and Plan: * Endoscopic capsule was stuck within the distal ileum, likely related to the active Crohn's disease and inability to pass. This was removed in the specimen during the ileocecal resection. (3) Crohn disease: Qualifiers: Gastrointestinal tract location: small and large intestine Digestive disease complication type: without complication Qualified Code(s): K50.80 - Crohn's disease of both small and large intestine without complications Code(s): K50.90 - Crohn's disease, unspecified, without complications Status: Chronic Assessment and Plan: * Evidence of active Crohn's disease of the terminal ileum s/p ileocecal resection. See plan above. Pathology pending. Continue IV Zosyn for now. WBC count down from 18.9 to 15.8 today. Repeat labs again tomorrow. (4) Elevated liver function tests: Code(s): R79.89 - Other specified abnormal findings of blood chemistry Status: Acute Assessment and Plan: * Patient has a history of elevated bilirubin over the past few years (up to 2021) with bilirubin as high as 2.4 in the past. His hyperbilirubinemia is more likely chronic and could be worked up further by his PCP as an outpatient if needed. Will monitor labs. Plan I have discussed the patient's case, recommendations, and treatment plan with Dr. Su. Subjective Subjective Date/Time Seen: 05/13/25 10:28 Post Op day: 1 (Diagnostic laparoscopy with conversion to open laparotomy with ileocecal bowel resection and [id number] stapled anti peristaltic ileocolic anastomosis) Patient reports: no flatus and no bowel movement (last BM was a small liquid BM right before surgery) Interval history: Patient seen today. He sat up in the chair this morning around 5 am and tolerated this well. He is not having any abdominal pain at this time. He only has pain when getting up out of bed or with movement, which has been tolerable. No nausea. He has not had any NG output overnight. I checked the NG tube and suction, which appears to be functioning well with only a small amount of clear bile. Exam Const: General: comfortable and no acute distress Orientation/consciousness: patient oriented x3 GI: Inspection: incision (dry and glue intact with no erythema or drainage) and other (mildly distended) GI Palp: Yes Soft to palpation, Yes Tenderness to palpation present (GI) (expected incisional tenderness and mild RUQ/RLQ tenderness ), No Guarding due to palpation present (GI) and No Rebound tenderness present Auscultation: Hypoactive bowel sounds present Objective Data Vital Signs Vital Signs: Vital Signs - 24 hr 05/12/25 11:23 05/12/25 12:45 05/12/25 13:33 Temperature Pulse Rate 108 H 103 H 112 H Respiratory Rate 17 18 18 Blood Pressure 122/98 H 122/87 123/88 Pulse Oximetry 91 92 96 Oxygen Delivery Oxygen Flow Rate 05/12/25 14:47 05/12/25 18:36 05/12/25 18:45 Temperature 97.5 F L 97.1 F L Pulse Rate 97 78 76 Respiratory Rate 16 22 H 20 Blood Pressure 143/93 H 139/63 153/84 H Pulse Oximetry 98 97 100 Oxygen Delivery Room Air Simple Face Mask Simple Face Mask Oxygen Flow Rate 8 8 05/12/25 19:00 05/12/25 19:15 05/12/25 19:30 Temperature Pulse Rate 86 88 82 Respiratory Rate 25 H 14 13 Blood Pressure 127/88 139/82 134/92 H Pulse Oximetry 95 92 97 Oxygen Delivery Simple Face Mask Room Air Nasal Cannula Oxygen Flow Rate 8 2 05/12/25 19:45 05/12/25 20:25 05/12/25 20:55 Temperature 98.0 F Pulse Rate 89 86 Respiratory Rate 13 18 Blood Pressure 141/91 H 152/81 H Pulse Oximetry 97 90 93 Oxygen Delivery Nasal Cannula Nasal Cannula Oxygen Flow Rate 2 2 05/12/25 21:00 05/12/25 21:44 05/12/25 23:50 Temperature 97.8 F 98.7 F Pulse Rate 104 H 90 Respiratory Rate 20 18 Blood Pressure 149/82 H 121/80 Pulse Oximetry 93 91 95 Oxygen Delivery Nasal Cannula Oxygen Flow Rate 2 05/13/25 03:34 Temperature 98.3 F Pulse Rate 93 Respiratory Rate 17 Blood Pressure 141/78 H Pulse Oximetry 94 Oxygen Delivery Oxygen Flow Rate Intake/Output Intake/Output: Intake & Output 05/10/25 05/11/25 05/12/25 05/13/25 23:59 23:59 23:59 23:59 Intake Total 1837.5 1300 Output Total 325 Balance 1837.5 975 Meds/Results Medications: Active Medications Generic Name Dose Route Start Last Admin Trade Name Freq PRN Reason Stop Dose Admin Acetaminophen 650 mg 05/12/25 19:54 Acetaminophen 650 Mg Suppository RECTAL Q6H PRN Mild Pain (1-3) or Fever Al Hydrox/Mg Hydrox/Simethicone 30 ml 05/12/25 21:00 05/13/25 04:24 Mag Hydrox/Al Hydrox/Simeth 30 Ml Udc PO 30 ml Q8H LUPILLO Administration Diazepam 5 mg 05/12/25 21:00 05/13/25 09:14 Diazepam Inj (*Crx) 10 Mg/2 Ml Syringe IV PUSH 5 mg Q12H LUPILLO Administration Enoxaparin Sodium 40 mg 05/13/25 09:00 05/13/25 09:13 Enoxaparin 40 Mg/0.4 Ml Syringe SUB-Q 40 mg DAILY LUPILLO Administration Hydromorphone HCl 1 mg 05/12/25 19:54 05/12/25 21:19 Hydromorphone Hcl Inj (*Crx) 1 Mg/Ml Syr IV PUSH 1 mg Q4H PRN Administration Pain Rated 7-10 Hydromorphone HCl 0.5 mg 05/12/25 19:54 Hydromorphone Hcl Inj (*Crx) 1 Mg/Ml Syr IV PUSH Q4H PRN Pain Rated 4-6 Piperacillin Sod/Tazobactam 50 mls @ 100 mls/hr 05/12/25 12:00 05/13/25 05:31 Sod 3.375 gm/ Sodium Chloride IVPB Infused Q6HR LUPILLO Infusion Ibuprofen 800 mg in 200 mls @ 400 mls/hr 05/12/25 19:54 05/13/25 04:54 Caldolor 800 Mg/200 Ml IVPB Infused Q8H LUPILLO Infusion Lactated Ringer's 1,000 mls @ 125 mls/hr 05/13/25 00:30 05/13/25 09:13 Lr - Lactated Ringers Iv IV CONT 125 mls/hr .Q8H LUPILLO Administration Lidocaine 1 patch 05/13/25 09:00 05/13/25 09:14 Lidocaine 5% Patch TRANSDERM 1 patch DAILY LUPILLO Administration Metoprolol Tartrate 5 mg 05/12/25 19:54 Metoprolol Tartrate Inj 5 Mg/5 Ml Vial IV PUSH Q4H PRN Hypertension Ondansetron HCl 4 mg 05/12/25 19:54 Ondansetron Inj 4 Mg/2 Ml Vial IV PUSH Q6H PRN Nausea And Vomiting Radiology Results: ITS Impressions Abdomen/Pelvis CT 05/12/25 08:23 IMPRESSION: 1. Metallic device/foreign body in the distal ileum consistent with enteric video device. Small bowel wall thickening in this area with proximal distended small bowel could represent mechanical/inflammatory enteritis with proximal ileus. Developing small bowel obstruction however may have a similar appearance. 2. Ascending thoracic aortic aneurysm measuring 4.7 cm at the level of the right pulmonary artery. The thoracic aorta is only partially visualized on this abdominal/pelvic CT. 3.: Cholelithiasis with no gross CT evidence of acute cholecystitis. Labs Labs: Laboratory Results - last 24 hr 05/12/25 05/13/25 14:34 04:58 WBC 15.8 H RBC 4.97 Hgb 15.0 D Hct 45.4 MCV 91.3 MCH 30.2 MCHC 33.0 RDW 13.4 Plt Count 225 MPV 9.8 Immature Gran % (Auto) 0.6 H Neut % (Auto) 82.4 H Lymph % (Auto) 7.5 L Cooper % (Auto) 9.2 H Eos % (Auto) 0.0 Baso % (Auto) 0.3 Lymph # (Auto) 1.18 Cooper # (Auto) 1.5 H Eos # (Auto) 0.0 Baso # (Auto) 0.0 Abs Immat Gran (auto) 0.09 H Absolute Neuts (auto) 13.1 H Absolute Nucleated RBC 0.000 Nucleated RBC % 0.0 Sodium 137 Potassium 4.2 Chloride 106 Carbon Dioxide 23 Anion Gap 8 BUN 20 Creatinine 1.13 Estim Creat Clear Calc 67 Estimated GFR > 60 Glucose 137 H Calcium 8.4 Total Bilirubin 2.4 H AST 28 ALT 28 Alkaline Phosphatase 63 Total Protein 6.7 Albumin 3.8 Blood Type O Positive Antibody Screen Negative
--- NOTE | 2025-05-13 11:15 | P.PNIM_ITS ---
Assessment and Plan Assessment and Plan (1) Small bowel obstruction: Code(s): K56.609 - Unspecified intestinal obstruction, unspecified as to partial versus complete obstruction Status: Acute Plan SBO CT AP showed metallic device in the distal ileum S/p ExLap with ileocecal resection Had capsule endoscopy a day prior which caused the obstruction Continue Ng tube drainage and IVF GI and Gen surgery on board monitor Polycythemia, resolved Hb 15.0, 18.5 on admission Testosterone on hold continue IVF above, monitor Crohn's disease patient noted capsule endoscopy was administered yesterday monitor BPH Continue home meds and monitor for urinary retention DVT prophylaxis on Sq Lovenox full code Subjective Date/time seen: 05/13/25 11:15 Interval history: Comfortable at bedside S/p ExLap with ileocecal resection Review of Systems Review of Systems: All other systems reviewed and negative except in the history above. Exam Narrative: General: alert and comfortable Eyes: EOMI, PERRLA ENNT External ears normal, Neck is supple, no masses, Respiratory systems: Clear to auscultation Cardiovascular S1, S2, normal rhythm, no murmur, rub, or gallop; no thrill or palpable murmurs on palpation. Gastrointestinal: soft, non-tender, and non-distended abdomen with no masses; BS present Skin: no rash, lesions, ulcerations, subcutaneous nodules or induration Musculoskeletal: no abnormality and no tenderness, normal ROM Neurologic: Alert and oriented x3, non focal Mental Status Exam: normal affect Objective Data Vital Signs Vital Signs: Vital Signs - 24 hr 05/12/25 11:23 05/12/25 12:45 05/12/25 13:33 Temperature Pulse Rate 108 H 103 H 112 H Respiratory Rate 17 18 18 Blood Pressure 122/98 H 122/87 123/88 Pulse Oximetry 91 92 96 Oxygen Delivery Oxygen Flow Rate 05/12/25 14:47 05/12/25 18:36 05/12/25 18:45 Temperature 97.5 F L 97.1 F L Pulse Rate 97 78 76 Respiratory Rate 16 22 H 20 Blood Pressure 143/93 H 139/63 153/84 H Pulse Oximetry 98 97 100 Oxygen Delivery Room Air Simple Face Mask Simple Face Mask Oxygen Flow Rate 8 8 05/12/25 19:00 05/12/25 19:15 05/12/25 19:30 Temperature Pulse Rate 86 88 82 Respiratory Rate 25 H 14 13 Blood Pressure 127/88 139/82 134/92 H Pulse Oximetry 95 92 97 Oxygen Delivery Simple Face Mask Room Air Nasal Cannula Oxygen Flow Rate 8 2 05/12/25 19:45 05/12/25 20:25 05/12/25 20:55 Temperature 98.0 F Pulse Rate 89 86 Respiratory Rate 13 18 Blood Pressure 141/91 H 152/81 H Pulse Oximetry 97 90 93 Oxygen Delivery Nasal Cannula Nasal Cannula Oxygen Flow Rate 2 2 05/12/25 21:00 05/12/25 21:44 05/12/25 23:50 Temperature 97.8 F 98.7 F Pulse Rate 104 H 90 Respiratory Rate 20 18 Blood Pressure 149/82 H 121/80 Pulse Oximetry 93 91 95 Oxygen Delivery Nasal Cannula Oxygen Flow Rate 2 05/13/25 03:34 Temperature 98.3 F Pulse Rate 93 Respiratory Rate 17 Blood Pressure 141/78 H Pulse Oximetry 94 Oxygen Delivery Oxygen Flow Rate Intake/Output Intake/Output: Intake & Output 05/10/25 05/11/25 05/12/25 05/13/25 23:59 23:59 23:59 23:59 Intake Total 1837.5 1300 Output Total 325 Balance 1837.5 975 Meds/Results Medications: Active Medications Generic Name Dose Route Start Last Admin Trade Name Freq PRN Reason Stop Dose Admin Acetaminophen 650 mg 05/12/25 19:54 Acetaminophen 650 Mg Suppository RECTAL Q6H PRN Mild Pain (1-3) or Fever Al Hydrox/Mg Hydrox/Simethicone 30 ml 05/12/25 21:00 05/13/25 04:24 Mag Hydrox/Al Hydrox/Simeth 30 Ml Udc PO 30 ml Q8H LUPILLO Administration Diazepam 5 mg 05/12/25 21:00 05/13/25 09:14 Diazepam Inj (*Crx) 10 Mg/2 Ml Syringe IV PUSH 5 mg Q12H LUPILLO Administration Enoxaparin Sodium 40 mg 05/13/25 09:00 05/13/25 09:13 Enoxaparin 40 Mg/0.4 Ml Syringe SUB-Q 40 mg DAILY LUPILLO Administration Hydromorphone HCl 1 mg 05/12/25 19:54 05/12/25 21:19 Hydromorphone Hcl Inj (*Crx) 1 Mg/Ml Syr IV PUSH 1 mg Q4H PRN Administration Pain Rated 7-10 Hydromorphone HCl 0.5 mg 05/12/25 19:54 Hydromorphone Hcl Inj (*Crx) 1 Mg/Ml Syr IV PUSH Q4H PRN Pain Rated 4-6 Piperacillin Sod/Tazobactam 50 mls @ 100 mls/hr 05/12/25 12:00 05/13/25 05:31 Sod 3.375 gm/ Sodium Chloride IVPB Infused Q6HR LUPILLO Infusion Ibuprofen 800 mg in 200 mls @ 400 mls/hr 05/12/25 19:54 05/13/25 11:13 Caldolor 800 Mg/200 Ml IVPB 400 mls/hr Q8H LUPILLO Administration Lactated Ringer's 1,000 mls @ 125 mls/hr 05/13/25 00:30 05/13/25 09:13 Lr - Lactated Ringers Iv IV CONT 125 mls/hr .Q8H LUPILLO Administration Lidocaine 1 patch 05/13/25 09:00 05/13/25 09:14 Lidocaine 5% Patch TRANSDERM 1 patch DAILY LUPILLO Administration Metoprolol Tartrate 5 mg 05/12/25 19:54 Metoprolol Tartrate Inj 5 Mg/5 Ml Vial IV PUSH Q4H PRN Hypertension Ondansetron HCl 4 mg 05/12/25 19:54 Ondansetron Inj 4 Mg/2 Ml Vial IV PUSH Q6H PRN Nausea And Vomiting Radiology Results: ITS Impressions Abdomen/Pelvis CT 05/12/25 08:23 IMPRESSION: 1. Metallic device/foreign body in the distal ileum consistent with enteric video device. Small bowel wall thickening in this area with proximal distended small bowel could represent mechanical/inflammatory enteritis with proximal ileus. Developing small bowel obstruction however may have a similar appearance. 2. Ascending thoracic aortic aneurysm measuring 4.7 cm at the level of the right pulmonary artery. The thoracic aorta is only partially visualized on this abdominal/pelvic CT. 3.: Cholelithiasis with no gross CT evidence of acute cholecystitis. Labs Labs: Laboratory Results - last 24 hr 05/12/25 05/13/25 14:34 04:58 WBC 15.8 H RBC 4.97 Hgb 15.0 D Hct 45.4 MCV 91.3 MCH 30.2 MCHC 33.0 RDW 13.4 Plt Count 225 MPV 9.8 Immature Gran % (Auto) 0.6 H Neut % (Auto) 82.4 H Lymph % (Auto) 7.5 L [place] % (Auto) 9.2 H Eos % (Auto) 0.0 Baso % (Auto) 0.3 Lymph # (Auto) 1.18 [place] # (Auto) 1.5 H Eos # (Auto) 0.0 Baso # (Auto) 0.0 Abs Immat Gran (auto) 0.09 H Absolute Neuts (auto) 13.1 H Absolute Nucleated RBC 0.000 Nucleated RBC % 0.0 Sodium 137 Potassium 4.2 Chloride 106 Carbon Dioxide 23 Anion Gap 8 BUN 20 Creatinine 1.13 Estim Creat Clear Calc 67 Estimated GFR > 60 Glucose 137 H Calcium 8.4 Total Bilirubin 2.4 H AST 28 ALT 28 Alkaline Phosphatase 63 Total Protein 6.7 Albumin 3.8 Blood Type O Positive Antibody Screen Negative
[2025-05-13 14:00] VITALS: BP 134/70; PULSE 76; RESP 14; TEMP 36.7; O2SAT 96
--- NOTE | 2025-05-13 17:55 | WPDGICN ---
Assessment and Plan Assessment and plan (1) Crohn's disease of ileum: Code(s): K50.00 - Crohn's disease of small intestine without complications Status: Acute Assessment and Plan: unfortunately capsule endoscopy got stuck in distal ileum (capsule imaging was reviewed and showed stricturing disease with active inflammation/ulcers in terminal ileum)- patient was taken to OR yesterday, he is feeling better on antibiotics will get TB and HBV serology, once he is recoverd from surgery he will need to come to our office and discuss initiation of biologic to prevent progression of Crohn's (he is treatment naive) (2) Stricture of ileum: Code(s): K56.699 - Other intestinal obstruction unspecified as to partial versus complete obstruction Status: Acute (3) Foreign body of small intestine: Code(s): T18.3XXA - Foreign body in small intestine, initial encounter Status: Acute Assessment and Plan: treated by surgery (4) Small bowel obstruction: Code(s): K56.609 - Unspecified intestinal obstruction, unspecified as to partial versus complete obstruction Status: Acute Assessment and Plan: management per surgery (5) NAFLD (nonalcoholic fatty liver disease): Code(s): K76.0 - Fatty (change of) liver, not elsewhere classified Status: Acute Assessment and Plan: had elevated bili in the past, also fatty liver this will be addressed in next office visit GI Consult Note Consult date/time: 05/13/25 17:55 Reason for consult: small bowel obstruction after retained capsule endoscopy, Crohn's HPI: Kennedy Berry is a 64 year old male with history of tongue cancer s/p excision, fatty liver disease with history of Crohn's disease made several years ago (colonoscopy about 5 years ago no major changes then 08/2024 had another that showed ileitis however biopsies negative) then decision was to further investigate remaining of small bowel with capsule endoscopy for which he completed 05/11/25 then he go home and next day developed severe abdominal pain for which he came to ER. He had also bloating, nausea, and vomiting. [place] [id number], lactic acid 3.1 with repeat down to 1.7, total bilirubin 2.7, and other LFTs normal. CT scan of the abdomen and pelvis showed a metallic foreign body in the distal ileum consistent with the video device and small bowel wall thickening in this area with proximal distention of the small bowel c/w developing small bowel obstruction. Patient was taken to OR yesterday for open laparotomy and Evidence of active Crohn's disease of the terminal ileum s/p ileocecal resection. He is feeling much better today, less pain and comfortable. He never has been on biologics. Review of Systems Constitutional: Constitutional: Denies chills Eyes: Eyes: Denies blurry vision ENT: Reports Normal hearing present Cardiovascular: Cardiovascular: Denies chest pain Respiratory: Respiratory: Denies cough Gastrointestinal: Gastrointestinal: Reports abdominal pain, Reports nausea and Reports vomiting Genitourinary: Genitourinary: Denies dysuria Musculoskeletal: Musculoskeletal: Denies neck pain Integumentary/Breasts: Skin/Breast: Denies rash Neurologic: Denies Abnormal speech present Psychiatric: Psychiatric: Denies behavioral changes [facility] Past Medical History Medical History (Updated 05/13/25 @ 18:02 by Markus Valerio MD) Stricture of ileum Crohn's disease of ileum Otitis media Cerumen impaction Impacted cerumen of both ears Chest discomfort Premature ejaculation Irregular heart rhythm H/O tongue cancer Obesity Squamous cell carcinoma NAFLD (nonalcoholic fatty liver disease) Elevated glucose Low testosterone Elevated alanine aminotransferase (ALT) level Erectile dysfunction Dyslipidemia Crohn disease Hypertension Hypothyroidism determined by thyroid function test Oral cancer Squamous acanthoma of left external ear Surgical History Surgical History H/O medial meniscus repair of right knee History of tonsillectomy Family History Family History Mother Hypertension Family history of transient ischemic attacks Family history of cardiovascular disease Family history of coronary artery disease Father Malignant neoplasm of prostate Grandparent Malignant neoplasm of prostate Sibling Hypertension Spinal cord tumor Social History Social History Smoking status: Never smoker Second hand tobacco smoke exposure: Yes Alcohol intake: current Drinks per week: 2 Alcohol use details: Maybe 1 beer a week. 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 Gender identity (if verbalized by the patient): Male Spiritual care concerns: No Meds Home Medications and Allergies Home Medications ?Medication ?Instructions ?Recorded ?Confirmed ?Type testosterone cypionate 200 mg/mL 200 mg IM .bi weekly #30 mL 01/06/25 05/12/25 Rx intramuscular oil paroxetine HCl 20 mg tablet (Paxil) 20 mg PO DAILY #90 tabs 03/11/25 05/12/25 Rx tamsulosin 0.4 mg capsule 0.4 mg PO DAILY #90 caps 04/26/25 05/12/25 Rx Allergies Allergy/AdvReac Type Severity Reaction Status Date / Time No Known Allergies Allergy Verified 05/12/25 20:42 Vital Signs Vital Signs - 24 hr 05/12/25 18:36 05/12/25 18:45 05/12/25 19:00 Temperature 97.1 F L Pulse Rate 78 76 86 Respiratory Rate 22 H 20 25 H Blood Pressure 139/63 153/84 H 127/88 Pulse Oximetry 97 100 95 Oxygen Delivery Simple Face Mask Simple Face Mask Simple Face Mask Oxygen Flow Rate 8 8 8 05/12/25 19:15 05/12/25 19:30 05/12/25 19:45 Temperature Pulse Rate 88 82 89 Respiratory Rate 14 13 13 Blood Pressure 139/82 134/92 H 141/91 H Pulse Oximetry 92 97 97 Oxygen Delivery Room Air Nasal Cannula Nasal Cannula Oxygen Flow Rate 2 2 05/12/25 20:25 05/12/25 20:55 05/12/25 21:00 Temperature 98.0 F Pulse Rate 86 Respiratory Rate 18 Blood Pressure 152/81 H Pulse Oximetry 90 93 93 Oxygen Delivery Nasal Cannula Nasal Cannula Oxygen Flow Rate 2 2 05/12/25 21:44 05/12/25 23:50 05/13/25 03:34 Temperature 97.8 F 98.7 F 98.3 F Pulse Rate 104 H 90 93 Respiratory Rate 20 18 17 Blood Pressure 149/82 H 121/80 141/78 H Pulse Oximetry 91 95 94 Oxygen Delivery Oxygen Flow Rate 05/13/25 09:14 05/13/25 14:00 Temperature 98.1 F Pulse Rate 76 Respiratory Rate 18 14 Blood Pressure 134/70 Pulse Oximetry 94 96 Oxygen Delivery Room Air Oxygen Flow Rate Exam Const: General: comfortable and no acute distress Orientation/consciousness: patient oriented x3 HENMT: Face/Nose/Sinus: Normal nares present Eyes: Sclera: sclerae normal Neck: Neck: supple Resp: Effort & Inspection: normal respiratory effort Cardio: Rate: regular rate GI: Inspection: incision (dry and glue intact with no erythema or drainage) and other (mildly distended) GI Palp: Yes Soft to palpation, Yes Tenderness to palpation present (GI) (expected incisional tenderness and mild RUQ/RLQ tenderness ), No Guarding due to palpation present (GI) and No Rebound tenderness present Auscultation: Hypoactive bowel sounds present Skin: General skin exam: normal color Neuro: Speech: normal speech Motor exam (neuro): 5/5 motor strength present throughout Extrem: General: normal to inspection Psych: Mental Status: mental status grossly normal Results Labs 05/13/25 04:58 05/13/25 04:58 Labs: Short CBC 05/13/25 Range/Units 04:58 WBC 15.8 H (4.5-10.0) K/mm3 Hgb 15.0 D (14.0-18.0) g/dL Hct 45.4 (42.0-52.0) % Plt Count 225 (150-375) k/mm3 [facility] 05/13/25 04:58 Sodium 137 Potassium 4.2 Chloride 106 Carbon Dioxide 23 BUN 20 Creatinine 1.13 Glucose 137 H Calcium 8.4 Liver Function 05/13/25 Range/Units 04:58 Total Bilirubin 2.4 H (0.2-1.3) mg/dL AST 28 (17-59) U/L ALT 28 (6-50) U/L Alkaline Phosphatase 63 (38-126) U/L Albumin 3.8 (3.5-5.1) g/dL
[2025-05-13 20:00] VITALS: PULSE 83; RESP 20; O2SAT 94
[2025-05-13 21:42] VITALS: O2SAT 94
[2025-05-13 21:50] VITALS: BP 141/79; PULSE 83; RESP 20; TEMP 36.7; O2SAT 94
[2025-05-14] MEDS: PIPERACILLIN/TAZOBACTAM SOD 3.375 GM in SODIUM CHLORIDE 0.9% IV 50 ML 100 ML IVPB ×4 (00:58→16:53)
[2025-05-14] MEDS: LACTATED RINGERS 1,000 ML 125 ML IV CONT ×3 (01:22→20:13)
[2025-05-14] MEDS: IBUPROFEN IV 800 MG/200 ML 800 MG/200 ML BAG 400 MG IVPB ×3 (04:38→20:13)
[2025-05-14 05:02] VITALS: BP 142/77; PULSE 79; RESP 20; TEMP 36.9; O2SAT 95
[2025-05-14 05:21] LABS: Hematocrit 37.6 % (42.0-52.0); Hemoglobin 12.4 g/dL (14.0-18.0); Immature Granulocyte Percent A 0.7 % (0-0.5); Lymphocytes Absolute Auto 1.42 K/mm3 (0.9-3.2); Mean Corpuscular HGB Conc 33.0 g/dl (32-36); Mean Corpuscular Hemoglobin 30.0 pg (26-34); Mean Corpuscular Volume 91.0 fl (80-100); Nucleated Red Blood Cells Absolute Auto 0.000 K/mm3 (0.0-0.012); Nucleated Red Blood Cells Perc 0.0 % (0.0-0.2); Platelet Count Result 174 k/mm3 (150-375); Red Blood Count 4.13 M/mm3 (4.6-6.20); White Blood Count 10.9 K/mm3 (4.5-10.0)
[2025-05-14] MEDS: MAG HYDROX/AL HYDROX/SIMETH 30 ML UDC PO (05:30)
[2025-05-14 05:40] LABS: Alanine Aminotransferase 19 U/L (6-50); Albumin Level 3.1 g/dL (3.5-5.1); Alkaline Phosphatase 64 U/L (38-126); Anion Gap 3 mmol/L (4-12); Aspartate Amino Transferase 27 U/L (17-59); Bilirubin,Total 3.0 mg/dL (0.2-1.3); Blood Urea Nitrogen 20 mg/dL (9-20); Calcium 8.3 mg/dL (8.4-10.2); Carbon Dioxide 26 mmol/L (22-30); Chloride 107 mmol/L (98-107); Estimated CRCL calculation 66 ml/min; Estimated Glomerular Filt Rate > 60; Glucose 104 mg/dL (65-110); Magnesium 2.0 mg/dL (1.6-2.3); Potassium 3.9 mmol/L (3.4-5.0); Sodium 136 mmol/L (137-145); Total Protein 6.0 g/dL (6.3-8.2)
[2025-05-14 06:33] LABS: Hepatitis B Surface Antigen Negative (Negative)
[2025-05-14 06:51] LABS: Hepatitis B Surface Anti Res Negative
[2025-05-14 08:00] VITALS: PULSE 79; RESP 20; O2SAT 95
[2025-05-14] MEDS: ENOXAPARIN 40 MG/0.4 ML SYRINGE SUB-Q (09:03)
[2025-05-14] MEDS: LIDOCAINE 5% PATCH 1 PATCH TRANSDERM (09:04)
[2025-05-14] MEDS: POTASSIUM CHLORIDE 20 MEQ PACKET (FOR LIQUID) 40 MEQ PO (09:22)
--- NOTE | 2025-05-14 09:47 | PM.IMPN2 ---
Assessment and Plan Assessment and Plan (1) Small bowel obstruction: Code(s): K56.609 - Unspecified intestinal obstruction, unspecified as to partial versus complete obstruction Status: Acute Plan SBO CT AP showed metallic device in the distal ileum S/p ExLap with ileocecal resection Had capsule endoscopy a day prior which caused the obstruction now on clear liquid diet GI and Gen surgery on board monitor Polycythemia, resolved Hb 10.9, 18.5 on admission Testosterone on hold continue IVF above, monitor Crohn's disease patient noted capsule endoscopy was administered yesterday monitor BPH Continue home meds and monitor for urinary retention DVT prophylaxis on Sq Lovenox full code Subjective Date/time seen: 05/14/25 09:47 Interval history: Comfortable at bedside S/p ExLap with ileocecal resection Now on clear liquid diet, advance diet per surgical team Review of Systems Review of Systems: All other systems reviewed and negative except in the history above. Exam Narrative: General: alert and comfortable Eyes: EOMI, PERRLA ENNT External ears normal, Neck is supple, no masses, Respiratory systems: Clear to auscultation Cardiovascular S1, S2, normal rhythm, no murmur, rub, or gallop; no thrill or palpable murmurs on palpation. Gastrointestinal: soft, non-tender, and non-distended abdomen with no masses; BS present Skin: no rash, lesions, ulcerations, subcutaneous nodules or induration Musculoskeletal: no abnormality and no tenderness, normal ROM Neurologic: Alert and oriented x3, non focal Mental Status Exam: normal affect Objective Data Vital Signs Vital Signs: Vital Signs - 24 hr 05/13/25 14:00 05/13/25 20:00 05/13/25 21:42 Temperature 98.1 F Pulse Rate 76 83 Respiratory Rate 14 20 Blood Pressure 134/70 Pulse Oximetry 96 94 94 Oxygen Delivery Room Air Room Air 05/13/25 21:50 05/14/25 05:02 Temperature 98.1 F 98.5 F Pulse Rate 83 79 Respiratory Rate 20 20 Blood Pressure 141/79 H 142/77 H Pulse Oximetry 94 95 Oxygen Delivery Intake/Output Intake/Output: Intake & Output 05/11/25 05/12/25 05/13/25 05/14/25 23:59 23:59 23:59 23:59 Intake Total 1837.5 2920 2291.7 Output Total 1275 400 Balance 1837.5 1645 1891.7 Meds/Results Medications: Active Medications Generic Name Dose Route Start Last Admin Trade Name Freq PRN Reason Stop Dose Admin Acetaminophen 650 mg 05/12/25 19:54 Acetaminophen 650 Mg Suppository RECTAL Q6H PRN Mild Pain (1-3) or Fever Al Hydrox/Mg Hydrox/Simethicone 30 ml 05/12/25 21:00 05/14/25 05:30 Mag Hydrox/Al Hydrox/Simeth 30 Ml Udc PO 30 ml Q8H LUPILLO Administration Enoxaparin Sodium 40 mg 05/13/25 09:00 05/14/25 09:03 Enoxaparin 40 Mg/0.4 Ml Syringe SUB-Q 40 mg DAILY LUPILLO Administration Hydromorphone HCl 1 mg 05/12/25 19:54 05/12/25 21:19 Hydromorphone Hcl Inj (*Crx) 1 Mg/Ml Syr IV PUSH 1 mg Q4H PRN Administration Pain Rated 7-10 Hydromorphone HCl 0.5 mg 05/12/25 19:54 Hydromorphone Hcl Inj (*Crx) 1 Mg/Ml Syr IV PUSH Q4H PRN Pain Rated 4-6 Piperacillin Sod/Tazobactam 50 mls @ 100 mls/hr 05/12/25 12:00 05/14/25 05:59 Sod 3.375 gm/ Sodium Chloride IVPB Infused Q6HR LUPILLO Infusion Ibuprofen 800 mg in 200 mls @ 400 mls/hr 05/12/25 19:54 05/14/25 05:08 Caldolor 800 Mg/200 Ml IVPB Infused Q8H LUPILLO Infusion Lactated Ringer's 1,000 mls @ 125 mls/hr 05/13/25 00:30 05/14/25 09:18 Lr - Lactated Ringers Iv IV CONT 125 mls/hr .Q8H LUPILLO Administration Lidocaine 1 patch 05/13/25 09:00 05/14/25 09:04 Lidocaine 5% Patch TRANSDERM 1 patch DAILY LUPILLO Administration Metoprolol Tartrate 5 mg 05/12/25 19:54 Metoprolol Tartrate Inj 5 Mg/5 Ml Vial IV PUSH Q4H PRN Hypertension Ondansetron HCl 4 mg 05/12/25 19:54 Ondansetron Inj 4 Mg/2 Ml Vial IV PUSH Q6H PRN Nausea And Vomiting Radiology Results: ITS Impressions Abdomen/Pelvis CT 05/12/25 08:23 IMPRESSION: 1. Metallic device/foreign body in the distal ileum consistent with enteric video device. Small bowel wall thickening in this area with proximal distended small bowel could represent mechanical/inflammatory enteritis with proximal ileus. Developing small bowel obstruction however may have a similar appearance. 2. Ascending thoracic aortic aneurysm measuring 4.7 cm at the level of the right pulmonary artery. The thoracic aorta is only partially visualized on this abdominal/pelvic CT. 3.: Cholelithiasis with no gross CT evidence of acute cholecystitis. Labs Labs: Laboratory Results - last 24 hr 05/14/25 05:11 WBC 10.9 H RBC 4.13 L Hgb 12.4 L Hct 37.6 L MCV 91.0 MCH 30.0 MCHC 33.0 RDW 13.3 Plt Count 174 MPV 9.6 Immature Gran % (Auto) 0.7 H Neut % (Auto) 74.2 H Lymph % (Auto) 13.1 L [place] % (Auto) 11.4 H Eos % (Auto) 0.2 Baso % (Auto) 0.4 Lymph # (Auto) 1.42 [place] # (Auto) 1.2 H Eos # (Auto) 0.0 Baso # (Auto) 0.0 Abs Immat Gran (auto) 0.08 H Absolute Neuts (auto) 8.1 H Absolute Nucleated RBC 0.000 Nucleated RBC % 0.0 Sodium 136 L Potassium 3.9 Chloride 107 Carbon Dioxide 26 Anion Gap 3 L BUN 20 Creatinine 1.15 Estim Creat Clear Calc 66 Estimated GFR > 60 Glucose 104 Calcium 8.3 L Magnesium 2.0 Total Bilirubin 3.0 H AST 27 ALT 19 Alkaline Phosphatase 64 Total Protein 6.0 L Albumin 3.1 L Hep Bs Antigen Negative Hep Bs Antibody Negative
--- NOTE | 2025-05-14 11:51 | P.PN_ITS ---
Progress Note: A&P Assessment and Plan (1) Crohn disease: Qualifiers: Gastrointestinal tract location: small and large intestine Digestive disease complication type: without complication Qualified Code(s): K50.80 - Crohn's disease of both small and large intestine without complications Code(s): K50.90 - Crohn's disease, unspecified, without complications Status: Chronic Assessment and Plan: Patient after trans disease seen during laparotomy. Crohn stricture noted. Video capsule could not pass through the area of stricture and this resulted in small-bowel obstruction. Postop day 2 after ileocecal resection of the area active Crohn's disease. The video capsule was removed with the specimen. We will go ahead and remove his NG tube today and start him on clear liquids. Continue IV antibiotics for another day as his white blood cell count is almost back down to normal. Continue ambulating. DVT prophylaxis with Lovenox. Given that pretty much his whole ileum was resected due to the active Crohn's disease and stricture he may need B12 supplementation in the future. Will defer that to GI as the patient will follow up with them postoperatively because of his Crohn's disease and possible need for biologics for treatment. (2) Foreign body of small intestine: Code(s): T18.3XXA - Foreign body in small intestine, initial encounter Status: Acute Assessment and Plan: As above (3) Stricture of ileum: Code(s): K56.699 - Other intestinal obstruction unspecified as to partial versus complete obstruction Status: Acute Assessment and Plan: As above Subjective Date/time seen: 05/14/25 11:51 Interval history: Patient postop day 2 after ileocecal resection for Crohn stricture and retained video capsule which cause small-bowel obstruction. He is doing well today. No nausea or vomiting. NG tube has been clamped for 24hours. No bowel movement flatus yet but he is ambulatory to the bathroom and up to chair. Not needing really any narcotics for pain medication. He is on scheduled IV ibuprofen, topical lidocaine patch to the abdominal wall, and low-dose of Valium for muscle relaxer. Exam GI: Other: Abdomen is soft and mildly distended. Midline incision is healing well and intact. No redness or drainage. Some bowel sounds are noted. Objective Data Vital Signs Vital Signs: Vital Signs - 24 hr 05/13/25 14:00 05/13/25 20:00 05/13/25 21:42 Temperature 36.7 C Pulse Rate 76 83 Respiratory Rate 14 20 Blood Pressure 134/70 Pulse Oximetry 96 94 94 Oxygen Delivery Room Air Room Air 05/13/25 21:50 05/14/25 05:02 05/14/25 08:00 Temperature 36.7 C 36.9 C Pulse Rate 83 79 79 Respiratory Rate 20 20 20 Blood Pressure 141/79 H 142/77 H Pulse Oximetry 94 95 95 Oxygen Delivery Room Air Intake/Output Intake/Output: Intake & Output 05/11/25 05/12/25 05/13/25 05/14/25 23:59 23:59 23:59 23:59 Intake Total 1837.5 2920 2501.7 Output Total 1275 400 Balance 1837.5 1645 2101.7 Meds/Results Medications: Active Medications Generic Name Dose Route Start Last Admin Trade Name Freq PRN Reason Stop Dose Admin Acetaminophen 650 mg 05/12/25 19:54 Acetaminophen 650 Mg Suppository RECTAL Q6H PRN Mild Pain (1-3) or Fever Al Hydrox/Mg Hydrox/Simethicone 30 ml 05/12/25 21:00 05/14/25 05:30 Mag Hydrox/Al Hydrox/Simeth 30 Ml Udc PO 30 ml Q8H LUPILLO Administration Enoxaparin Sodium 40 mg 05/13/25 09:00 05/14/25 09:03 Enoxaparin 40 Mg/0.4 Ml Syringe SUB-Q 40 mg DAILY LUPILLO Administration Hydromorphone HCl 1 mg 05/12/25 19:54 05/12/25 21:19 Hydromorphone Hcl Inj (*Crx) 1 Mg/Ml Syr IV PUSH 1 mg Q4H PRN Administration Pain Rated 7-10 Hydromorphone HCl 0.5 mg 05/12/25 19:54 Hydromorphone Hcl Inj (*Crx) 1 Mg/Ml Syr IV PUSH Q4H PRN Pain Rated 4-6 Piperacillin Sod/Tazobactam 50 mls @ 100 mls/hr 05/12/25 12:00 05/14/25 05:59 Sod 3.375 gm/ Sodium Chloride IVPB Infused Q6HR LUPILLO Infusion Ibuprofen 800 mg in 200 mls @ 400 mls/hr 05/12/25 19:54 05/14/25 05:08 Caldolor 800 Mg/200 Ml IVPB Infused Q8H LUPILLO Infusion Lactated Ringer's 1,000 mls @ 125 mls/hr 05/13/25 00:30 05/14/25 09:18 Lr - Lactated Ringers Iv IV CONT 125 mls/hr .Q8H LUPILLO Administration Lidocaine 1 patch 05/13/25 09:00 05/14/25 09:04 Lidocaine 5% Patch TRANSDERM 1 patch DAILY LUPILLO Administration Metoprolol Tartrate 5 mg 05/12/25 19:54 Metoprolol Tartrate Inj 5 Mg/5 Ml Vial IV PUSH Q4H PRN Hypertension Ondansetron HCl 4 mg 05/12/25 19:54 Ondansetron Inj 4 Mg/2 Ml Vial IV PUSH Q6H PRN Nausea And Vomiting Radiology Results: ITS Impressions Abdomen/Pelvis CT 05/12/25 08:23 IMPRESSION: 1. Metallic device/foreign body in the distal ileum consistent with enteric video device. Small bowel wall thickening in this area with proximal distended small bowel could represent mechanical/inflammatory enteritis with proximal ileus. Developing small bowel obstruction however may have a similar appearance. 2. Ascending thoracic aortic aneurysm measuring 4.7 cm at the level of the right pulmonary artery. The thoracic aorta is only partially visualized on this abdominal/pelvic CT. 3.: Cholelithiasis with no gross CT evidence of acute cholecystitis. Labs Labs: Laboratory Results - last 24 hr 05/14/25 05:11 WBC 10.9 H RBC 4.13 L Hgb 12.4 L Hct 37.6 L MCV 91.0 MCH 30.0 MCHC 33.0 RDW 13.3 Plt Count 174 MPV 9.6 Immature Gran % (Auto) 0.7 H Neut % (Auto) 74.2 H Lymph % (Auto) 13.1 L [place] % (Auto) 11.4 H Eos % (Auto) 0.2 Baso % (Auto) 0.4 Lymph # (Auto) 1.42 [place] # (Auto) 1.2 H Eos # (Auto) 0.0 Baso # (Auto) 0.0 Abs Immat Gran (auto) 0.08 H Absolute Neuts (auto) 8.1 H Absolute Nucleated RBC 0.000 Nucleated RBC % 0.0 Sodium 136 L Potassium 3.9 Chloride 107 Carbon Dioxide 26 Anion Gap 3 L BUN 20 Creatinine 1.15 Estim Creat Clear Calc 66 Estimated GFR > 60 Glucose 104 Calcium 8.3 L Magnesium 2.0 Total Bilirubin 3.0 H AST 27 ALT 19 Alkaline Phosphatase 64 Total Protein 6.0 L Albumin 3.1 L Hep Bs Antigen Negative Hep Bs Antibody Negative
--- NOTE | 2025-05-14 11:53 | PM.PNGS ---
Subjective Subjective Date/Time Seen: 05/14/25 11:53 Patient reports: no new complaints, feels better, tolerating liquids well and afebrile Interval history: patient doing well today. Sitting up in chair. Eager to get NG tube out. Denies any nausea or vomiting. Tunnel bowel movement or flatus. Objective Data Vital Signs Vital Signs: Vital Signs - 24 hr 05/13/25 14:00 05/13/25 20:00 05/13/25 21:42 Temperature 98.1 F Pulse Rate 76 83 Respiratory Rate 14 20 Blood Pressure 134/70 Pulse Oximetry 96 94 94 Oxygen Delivery Room Air Room Air 05/13/25 21:50 05/14/25 05:02 05/14/25 08:00 Temperature 98.1 F 98.5 F Pulse Rate 83 79 79 Respiratory Rate 20 20 20 Blood Pressure 141/79 H 142/77 H Pulse Oximetry 94 95 95 Oxygen Delivery Room Air Intake/Output Intake/Output: Intake & Output 05/11/25 05/12/25 05/13/25 05/14/25 23:59 23:59 23:59 23:59 Intake Total 1837.5 2920 2501.7 Output Total 1275 400 Balance 1837.5 1645 2101.7 Meds/Results Medications: Active Medications Generic Name Dose Route Start Last Admin Trade Name Freq PRN Reason Stop Dose Admin Acetaminophen 650 mg 05/12/25 19:54 Acetaminophen 650 Mg Suppository RECTAL Q6H PRN Mild Pain (1-3) or Fever Al Hydrox/Mg Hydrox/Simethicone 30 ml 05/12/25 21:00 05/14/25 05:30 Mag Hydrox/Al Hydrox/Simeth 30 Ml Udc PO 30 ml Q8H LUPILLO Administration Enoxaparin Sodium 40 mg 05/13/25 09:00 05/14/25 09:03 Enoxaparin 40 Mg/0.4 Ml Syringe SUB-Q 40 mg DAILY LUPILLO Administration Hydromorphone HCl 1 mg 05/12/25 19:54 05/12/25 21:19 Hydromorphone Hcl Inj (*Crx) 1 Mg/Ml Syr IV PUSH 1 mg Q4H PRN Administration Pain Rated 7-10 Hydromorphone HCl 0.5 mg 05/12/25 19:54 Hydromorphone Hcl Inj (*Crx) 1 Mg/Ml Syr IV PUSH Q4H PRN Pain Rated 4-6 Piperacillin Sod/Tazobactam 50 mls @ 100 mls/hr 05/12/25 12:00 05/14/25 05:59 Sod 3.375 gm/ Sodium Chloride IVPB Infused Q6HR LUPILLO Infusion Ibuprofen 800 mg in 200 mls @ 400 mls/hr 05/12/25 19:54 05/14/25 05:08 Caldolor 800 Mg/200 Ml IVPB Infused Q8H LUPILLO Infusion Lactated Ringer's 1,000 mls @ 125 mls/hr 05/13/25 00:30 05/14/25 09:18 Lr - Lactated Ringers Iv IV CONT 125 mls/hr .Q8H LUPILLO Administration Lidocaine 1 patch 05/13/25 09:00 05/14/25 09:04 Lidocaine 5% Patch TRANSDERM 1 patch DAILY LUPILLO Administration Metoprolol Tartrate 5 mg 05/12/25 19:54 Metoprolol Tartrate Inj 5 Mg/5 Ml Vial IV PUSH Q4H PRN Hypertension Ondansetron HCl 4 mg 05/12/25 19:54 Ondansetron Inj 4 Mg/2 Ml Vial IV PUSH Q6H PRN Nausea And Vomiting Radiology Results: ITS Impressions Abdomen/Pelvis CT 05/12/25 08:23 IMPRESSION: 1. Metallic device/foreign body in the distal ileum consistent with enteric video device. Small bowel wall thickening in this area with proximal distended small bowel could represent mechanical/inflammatory enteritis with proximal ileus. Developing small bowel obstruction however may have a similar appearance. 2. Ascending thoracic aortic aneurysm measuring 4.7 cm at the level of the right pulmonary artery. The thoracic aorta is only partially visualized on this abdominal/pelvic CT. 3.: Cholelithiasis with no gross CT evidence of acute cholecystitis. Labs Labs: Laboratory Results - last 24 hr 05/14/25 05:11 WBC 10.9 H RBC 4.13 L Hgb 12.4 L Hct 37.6 L MCV 91.0 MCH 30.0 MCHC 33.0 RDW 13.3 Plt Count 174 MPV 9.6 Immature Gran % (Auto) 0.7 H Neut % (Auto) 74.2 H Lymph % (Auto) 13.1 L [place] % (Auto) 11.4 H Eos % (Auto) 0.2 Baso % (Auto) 0.4 Lymph # (Auto) 1.42 [place] # (Auto) 1.2 H Eos # (Auto) 0.0 Baso # (Auto) 0.0 Abs Immat Gran (auto) 0.08 H Absolute Neuts (auto) 8.1 H Absolute Nucleated RBC 0.000 Nucleated RBC % 0.0 Sodium 136 L Potassium 3.9 Chloride 107 Carbon Dioxide 26 Anion Gap 3 L BUN 20 Creatinine 1.15 Estim Creat Clear Calc 66 Estimated GFR > 60 Glucose 104 Calcium 8.3 L Magnesium 2.0 Total Bilirubin 3.0 H AST 27 ALT 19 Alkaline Phosphatase 64 Total Protein 6.0 L Albumin 3.1 L Hep Bs Antigen Negative Hep Bs Antibody Negative
[2025-05-14 14:00] VITALS: BP 152/89; PULSE 81; RESP 18; TEMP 36.3; O2SAT 95
--- NOTE | 2025-05-14 16:42 | P.PNGI_ITS ---
Progress Note: A&P Assessment and Plan (1) Crohn's disease of ileum: Code(s): K50.00 - Crohn's disease of small intestine without complications Status: Acute Assessment and Plan: required urgent surgery after SB capsule stuck in terminal ileum he is recovering and feeling better diet per surgery team he will need follow-up in office to discuss initiation of biologics in near future (2) SBO (small bowel obstruction): Code(s): K56.609 - Unspecified intestinal obstruction, unspecified as to partial versus complete obstruction Status: Acute Assessment and Plan: treated with surgery (3) Foreign body of small intestine: Code(s): T18.3XXA - Foreign body in small intestine, initial encounter Status: Acute (4) Stricture of ileum: Code(s): K56.699 - Other intestinal obstruction unspecified as to partial versus complete obstruction Status: Acute Assessment and Plan: capsule confirmed active Crohn's with stricturing phenotype Subjective Date/time seen: 05/14/25 16:42 Interval history: continued to feel better, less pain after surgery tolerated liquid diet, no nausea still no BM Review of Systems Review of Systems: All systems reviewed & are unremarkable except as noted in HPI and below Exam Const: General: comfortable HENMT: Face/Nose/Sinus: Normal nares present Eyes: Sclera: sclerae normal Neck: Neck: supple Resp: Effort & Inspection: normal respiratory effort Cardio: Rate: regular rate GI: GI Palp: Yes Soft to palpation Other: Abdomen is soft and mildly distended. Midline incision is healing well and intact. No redness or drainage. Some bowel sounds are noted. Skin: General skin exam: normal color Neuro: Speech: normal speech Motor exam (neuro): 5/5 motor strength present throughout Extrem: General: normal to inspection Psych: Mental Status: mental status grossly normal Objective Data Vital Signs Vital Signs: Vital Signs - 24 hr 05/13/25 20:00 05/13/25 21:42 05/13/25 21:50 Temperature 98.1 F Pulse Rate 83 83 Respiratory Rate 20 20 Blood Pressure 141/79 H Pulse Oximetry 94 94 94 Oxygen Delivery Room Air Room Air 05/14/25 05:02 05/14/25 08:00 05/14/25 14:00 Temperature 98.5 F 97.3 F L Pulse Rate 79 79 81 Respiratory Rate 20 20 18 Blood Pressure 142/77 H 152/89 H Pulse Oximetry 95 95 95 Oxygen Delivery Room Air Intake/Output Intake/Output: Intake & Output 05/11/25 05/12/25 05/13/25 05/14/25 23:59 23:59 23:59 23:59 Intake Total 1837.5 2920 2961.7 Output Total 1275 950 Balance 1837.5 1645 2011.7 Meds/Results Medications: Active Medications Generic Name Dose Route Start Last Admin Trade Name Freq PRN Reason Stop Dose Admin Acetaminophen 650 mg 05/12/25 19:54 Acetaminophen 650 Mg Suppository RECTAL Q6H PRN Mild Pain (1-3) or Fever Enoxaparin Sodium 40 mg 05/13/25 09:00 05/14/25 09:03 Enoxaparin 40 Mg/0.4 Ml Syringe SUB-Q 40 mg DAILY LUPILLO Administration Hydromorphone HCl 1 mg 05/12/25 19:54 05/12/25 21:19 Hydromorphone Hcl Inj (*Crx) 1 Mg/Ml Syr IV PUSH 1 mg Q4H PRN Administration Pain Rated 7-10 Hydromorphone HCl 0.5 mg 05/12/25 19:54 Hydromorphone Hcl Inj (*Crx) 1 Mg/Ml Syr IV PUSH Q4H PRN Pain Rated 4-6 Piperacillin Sod/Tazobactam 50 mls @ 100 mls/hr 05/12/25 12:00 05/14/25 13:08 Sod 3.375 gm/ Sodium Chloride IVPB Infused Q6HR LUPILLO Infusion Ibuprofen 800 mg in 200 mls @ 400 mls/hr 05/12/25 19:54 05/14/25 12:31 Caldolor 800 Mg/200 Ml IVPB Infused Q8H LUPILLO Infusion Lactated Ringer's 1,000 mls @ 125 mls/hr 05/13/25 00:30 05/14/25 09:18 Lr - Lactated Ringers Iv IV CONT 125 mls/hr .Q8H LUPILLO Administration Lidocaine 1 patch 05/13/25 09:00 05/14/25 09:04 Lidocaine 5% Patch TRANSDERM 1 patch DAILY LUPILLO Administration Metoprolol Tartrate 5 mg 05/12/25 19:54 Metoprolol Tartrate Inj 5 Mg/5 Ml Vial IV PUSH Q4H PRN Hypertension Ondansetron HCl 4 mg 05/12/25 19:54 Ondansetron Inj 4 Mg/2 Ml Vial IV PUSH Q6H PRN Nausea And Vomiting Radiology Results: ITS Impressions Abdomen/Pelvis CT 05/12/25 08:23 IMPRESSION: 1. Metallic device/foreign body in the distal ileum consistent with enteric video device. Small bowel wall thickening in this area with proximal distended small bowel could represent mechanical/inflammatory enteritis with proximal ileus. Developing small bowel obstruction however may have a similar appearance. 2. Ascending thoracic aortic aneurysm measuring 4.7 cm at the level of the right pulmonary artery. The thoracic aorta is only partially visualized on this abdominal/pelvic CT. 3.: Cholelithiasis with no gross CT evidence of acute cholecystitis. Labs Labs: Laboratory Results - last 24 hr 05/14/25 05:11 WBC 10.9 H RBC 4.13 L Hgb 12.4 L Hct 37.6 L MCV 91.0 MCH 30.0 MCHC 33.0 RDW 13.3 Plt Count 174 MPV 9.6 Immature Gran % (Auto) 0.7 H Neut % (Auto) 74.2 H Lymph % (Auto) 13.1 L [place] % (Auto) 11.4 H Eos % (Auto) 0.2 Baso % (Auto) 0.4 Lymph # (Auto) 1.42 [place] # (Auto) 1.2 H Eos # (Auto) 0.0 Baso # (Auto) 0.0 Abs Immat Gran (auto) 0.08 H Absolute Neuts (auto) 8.1 H Absolute Nucleated RBC 0.000 Nucleated RBC % 0.0 Sodium 136 L Potassium 3.9 Chloride 107 Carbon Dioxide 26 Anion Gap 3 L BUN 20 Creatinine 1.15 Estim Creat Clear Calc 66 Estimated GFR > 60 Glucose 104 Calcium 8.3 L Magnesium 2.0 Total Bilirubin 3.0 H AST 27 ALT 19 Alkaline Phosphatase 64 Total Protein 6.0 L Albumin 3.1 L Hep Bs Antigen Negative Hep Bs Antibody Negative Hep B Core Total Ab Cancelled
[2025-05-14 20:00] VITALS: PULSE 86; RESP 20; O2SAT 97
[2025-05-14 20:51] VITALS: BP 158/88; PULSE 86; RESP 20; TEMP 37.2; O2SAT 97
[2025-05-15] MEDS: PIPERACILLIN/TAZOBACTAM SOD 3.375 GM in SODIUM CHLORIDE 0.9% IV 50 ML 100 ML IVPB ×2 (00:28→06:08)
[2025-05-15] MEDS: LACTATED RINGERS 1,000 ML 125 ML IV CONT (03:54)
[2025-05-15 03:55] VITALS: BP 161/90; PULSE 93; RESP 20; TEMP 36.4; O2SAT 96
[2025-05-15] MEDS: IBUPROFEN IV 800 MG/200 ML 800 MG/200 ML BAG 400 MG IVPB ×3 (04:03→19:32)
[2025-05-15 05:07] LABS: Hep B Core Ab, Total Negative (Negative)
[2025-05-15 05:58] LABS: Hematocrit 42.8 % (42.0-52.0); Hemoglobin 14.4 g/dL (14.0-18.0); Immature Granulocyte Percent A 1.4 % (0-0.5); Lymphocytes Absolute Auto 1.09 K/mm3 (0.9-3.2); Mean Corpuscular HGB Conc 33.6 g/dl (32-36); Mean Corpuscular Hemoglobin 30.6 pg (26-34); Mean Corpuscular Volume 90.9 fl (80-100); Nucleated Red Blood Cells Absolute Auto 0.000 K/mm3 (0.0-0.012); Nucleated Red Blood Cells Perc 0.0 % (0.0-0.2); Platelet Count Result 236 k/mm3 (150-375); Red Blood Count 4.71 M/mm3 (4.6-6.20); White Blood Count 7.1 K/mm3 (4.5-10.0)
[2025-05-15 06:21] LABS: Alanine Aminotransferase 21 U/L (6-50); Albumin Level 3.5 g/dL (3.5-5.1); Alkaline Phosphatase 95 U/L (38-126); Anion Gap 4 mmol/L (4-12); Aspartate Amino Transferase 36 U/L (17-59); Bilirubin,Total 2.8 mg/dL (0.2-1.3); Blood Urea Nitrogen 18 mg/dL (9-20); Calcium 8.5 mg/dL (8.4-10.2); Carbon Dioxide 25 mmol/L (22-30); Chloride 107 mmol/L (98-107); Estimated CRCL calculation 73 ml/min; Estimated Glomerular Filt Rate > 60; Glucose 127 mg/dL (65-110); Potassium 3.8 mmol/L (3.4-5.0); Sodium 136 mmol/L (137-145); Total Protein 6.5 g/dL (6.3-8.2)
[2025-05-15 09:22] VITALS: RESP 20; O2SAT 96
[2025-05-15] MEDS: LIDOCAINE 5% PATCH 1 PATCH TRANSDERM (09:22)
[2025-05-15] MEDS: ENOXAPARIN 40 MG/0.4 ML SYRINGE SUB-Q (09:22)
--- NOTE | 2025-05-15 10:29 | P.PNGS_ITS ---
Progress Note: A&P Assessment and Plan (1) Crohn disease: Qualifiers: Gastrointestinal tract location: small and large intestine Digestive disease complication type: without complication Qualified Code(s): K50.80 - Crohn's disease of both small and large intestine without complications Code(s): K50.90 - Crohn's disease, unspecified, without complications Status: Chronic Assessment and Plan: * Still having signs of a postoperative ileus, continue clear liquids today. * Increase activity * Await further return of bowel function (2) Foreign body of small intestine: Code(s): T18.3XXA - Foreign body in small intestine, initial encounter Status: Acute (3) Stricture of ileum: Code(s): K56.699 - Other intestinal obstruction unspecified as to partial versus complete obstruction Status: Acute Subjective Subjective Date/Time Seen: 05/15/25 10:29 Interval history: Patient still feeling bloated and experiencing belching, but no vomiting. Passing a little flatus and had a couple small BMs. Not really much appetite yet and feeling very full. Exam GI: Inspection: distended and incision (Intact) GI Palp: Yes Soft to palpation, Yes Tenderness to palpation present (GI) (Incisional) and No Guarding due to palpation present (GI) Auscultation: Hypoactive bowel sounds present Objective Data Vital Signs Vital Signs: Vital Signs - 24 hr 05/14/25 14:00 05/14/25 20:00 05/14/25 20:51 Temperature 97.3 F L 99.0 F Pulse Rate 81 86 86 Respiratory Rate 18 20 20 Blood Pressure 152/89 H 158/88 H Pulse Oximetry 95 97 97 Oxygen Delivery Room Air 05/15/25 03:55 Temperature 97.6 F Pulse Rate 93 Respiratory Rate 20 Blood Pressure 161/90 H Pulse Oximetry 96 Oxygen Delivery Intake/Output Intake/Output: Intake & Output 05/12/25 05/13/25 05/14/25 05/15/25 23:59 23:59 23:59 23:59 Intake Total 1837.5 2920 4901.7 1770.4 Output Total 1275 1225 400 Balance 1837.5 1645 3676.7 1370.4 Meds/Results Medications: Active Medications Generic Name Dose Route Start Last Admin Trade Name Freq PRN Reason Stop Dose Admin Acetaminophen 650 mg 05/12/25 19:54 Acetaminophen 650 Mg Suppository RECTAL Q6H PRN Mild Pain (1-3) or Fever Enoxaparin Sodium 40 mg 05/13/25 09:00 05/15/25 09:22 Enoxaparin 40 Mg/0.4 Ml Syringe SUB-Q 40 mg DAILY LUPILLO Administration Hydromorphone HCl 1 mg 05/12/25 19:54 05/12/25 21:19 Hydromorphone Hcl Inj (*Crx) 1 Mg/Ml Syr IV PUSH 1 mg Q4H PRN Administration Pain Rated 7-10 Hydromorphone HCl 0.5 mg 05/12/25 19:54 Hydromorphone Hcl Inj (*Crx) 1 Mg/Ml Syr IV PUSH Q4H PRN Pain Rated 4-6 Ibuprofen 800 mg in 200 mls @ 400 mls/hr 05/12/25 19:54 05/15/25 04:33 Caldolor 800 Mg/200 Ml IVPB Infused Q8H LUPILLO Infusion Lactated Ringer's 1,000 mls @ 75 mls/hr 05/13/25 00:30 05/15/25 03:54 Lr - Lactated Ringers Iv IV CONT 125 mls/hr .[id number] LUPILLO Administration Lidocaine 1 patch 05/13/25 09:00 05/15/25 09:22 Lidocaine 5% Patch TRANSDERM 1 patch DAILY LUPILLO Administration Metoprolol Tartrate 5 mg 05/12/25 19:54 Metoprolol Tartrate Inj 5 Mg/5 Ml Vial IV PUSH Q4H PRN Hypertension Ondansetron HCl 4 mg 05/12/25 19:54 Ondansetron Inj 4 Mg/2 Ml Vial IV PUSH Q6H PRN Nausea And Vomiting Radiology Results: ITS Impressions Abdomen/Pelvis CT 05/12/25 08:23 IMPRESSION: 1. Metallic device/foreign body in the distal ileum consistent with enteric video device. Small bowel wall thickening in this area with proximal distended small bowel could represent mechanical/inflammatory enteritis with proximal ileus. Developing small bowel obstruction however may have a similar appearance. 2. Ascending thoracic aortic aneurysm measuring 4.7 cm at the level of the right pulmonary artery. The thoracic aorta is only partially visualized on this abdominal/pelvic CT. 3.: Cholelithiasis with no gross CT evidence of acute cholecystitis. Labs Labs: Laboratory Results - last 24 hr 05/14/25 05/14/25 05/15/25 05:11 05:11 05:41 WBC 7.1 RBC 4.71 Hgb 14.4 Hct 42.8 MCV 90.9 MCH 30.6 MCHC 33.6 RDW 13.2 Plt Count 236 MPV 9.5 Immature Gran % (Auto) 1.4 H Neut % (Auto) 67.5 Lymph % (Auto) 15.3 L [place] % (Auto) 15.1 H Eos % (Auto) 0.4 Baso % (Auto) 0.3 Lymph # (Auto) 1.09 [place] # (Auto) 1.1 H Eos # (Auto) 0.0 Baso # (Auto) 0.0 Abs Immat Gran (auto) 0.10 H Absolute Neuts (auto) 4.8 Absolute Nucleated RBC 0.000 Nucleated RBC % 0.0 Sodium 136 L Potassium 3.8 Chloride 107 Carbon Dioxide 25 Anion Gap 4 BUN 18 Creatinine 1.03 Estim Creat Clear Calc 73 Estimated GFR > 60 Glucose 127 H Calcium 8.5 Total Bilirubin 2.8 H AST 36 ALT 21 Alkaline Phosphatase 95 Total Protein 6.5 Albumin 3.5 Hep B Core Total Ab Cancelled Negative
--- NOTE | 2025-05-15 11:20 | PM.IMPN2 ---
Assessment and Plan Assessment and Plan (1) Small bowel obstruction: Code(s): K56.609 - Unspecified intestinal obstruction, unspecified as to partial versus complete obstruction Status: Acute Plan SBO CT AP showed metallic device in the distal ileum S/p ExLap with ileocecal resection Had capsule endoscopy a day prior which caused the obstruction Still on clear liquid diet GI and Gen surgery on board monitor Polycythemia, resolved Hb 10.9, 18.5 on admission Testosterone on hold continue IVF above, monitor Crohn's disease patient noted capsule endoscopy was administered yesterday monitor BPH Continue home meds and monitor for urinary retention DVT prophylaxis on Sq Lovenox full code Subjective Date/time seen: 05/15/25 11:20 Interval history: Comfortable at bedside Review of Systems Review of Systems: All other systems reviewed and negative except in the history above. Exam Narrative: General: alert and comfortable Eyes: EOMI, PERRLA ENNT External ears normal, Neck is supple, no masses, Respiratory systems: Clear to auscultation Cardiovascular S1, S2, normal rhythm, no murmur, rub, or gallop; no thrill or palpable murmurs on palpation. Gastrointestinal: soft, non-tender, and non-distended abdomen with no masses; BS present Skin: no rash, lesions, ulcerations, subcutaneous nodules or induration Musculoskeletal: no abnormality and no tenderness, normal ROM Neurologic: Alert and oriented x3, non focal Mental Status Exam: normal affect Objective Data Vital Signs Vital Signs: Vital Signs - 24 hr 05/14/25 14:00 05/14/25 20:00 05/14/25 20:51 Temperature 97.3 F L 99.0 F Pulse Rate 81 86 86 Respiratory Rate 18 20 20 Blood Pressure 152/89 H 158/88 H Pulse Oximetry 95 97 97 Oxygen Delivery Room Air 05/15/25 03:55 Temperature 97.6 F Pulse Rate 93 Respiratory Rate 20 Blood Pressure 161/90 H Pulse Oximetry 96 Oxygen Delivery Intake/Output Intake/Output: Intake & Output 05/12/25 05/13/25 05/14/25 05/15/25 23:59 23:59 23:59 23:59 Intake Total 1837.5 2920 4901.7 2652.1 Output Total 1275 1225 400 Balance 1837.5 1645 3676.7 2252.1 Meds/Results Medications: Active Medications Generic Name Dose Route Start Last Admin Trade Name Freq PRN Reason Stop Dose Admin Acetaminophen 650 mg 05/12/25 19:54 Acetaminophen 650 Mg Suppository RECTAL Q6H PRN Mild Pain (1-3) or Fever Enoxaparin Sodium 40 mg 05/13/25 09:00 05/15/25 09:22 Enoxaparin 40 Mg/0.4 Ml Syringe SUB-Q 40 mg DAILY LUPILLO Administration Hydromorphone HCl 1 mg 05/12/25 19:54 05/12/25 21:19 Hydromorphone Hcl Inj (*Crx) 1 Mg/Ml Syr IV PUSH 1 mg Q4H PRN Administration Pain Rated 7-10 Hydromorphone HCl 0.5 mg 05/12/25 19:54 Hydromorphone Hcl Inj (*Crx) 1 Mg/Ml Syr IV PUSH Q4H PRN Pain Rated 4-6 Ibuprofen 800 mg in 200 mls @ 400 mls/hr 05/12/25 19:54 05/15/25 10:57 Caldolor 800 Mg/200 Ml IVPB 400 mls/hr Q8H LUPILLO Administration Lactated Ringer's 1,000 mls @ 75 mls/hr 05/13/25 00:30 05/15/25 10:58 Lr - Lactated Ringers Iv IV CONT 0 mls/hr .[id number] LUPILLO Infusion Lidocaine 1 patch 05/13/25 09:00 05/15/25 09:22 Lidocaine 5% Patch TRANSDERM 1 patch DAILY LUPILLO Administration Metoprolol Tartrate 5 mg 05/12/25 19:54 Metoprolol Tartrate Inj 5 Mg/5 Ml Vial IV PUSH Q4H PRN Hypertension Ondansetron HCl 4 mg 05/12/25 19:54 Ondansetron Inj 4 Mg/2 Ml Vial IV PUSH Q6H PRN Nausea And Vomiting Radiology Results: ITS Impressions Abdomen/Pelvis CT 05/12/25 08:23 IMPRESSION: 1. Metallic device/foreign body in the distal ileum consistent with enteric video device. Small bowel wall thickening in this area with proximal distended small bowel could represent mechanical/inflammatory enteritis with proximal ileus. Developing small bowel obstruction however may have a similar appearance. 2. Ascending thoracic aortic aneurysm measuring 4.7 cm at the level of the right pulmonary artery. The thoracic aorta is only partially visualized on this abdominal/pelvic CT. 3.: Cholelithiasis with no gross CT evidence of acute cholecystitis. Labs Labs: Laboratory Results - last 24 hr 05/14/25 05/14/25 05/15/25 05:11 05:11 05:41 WBC 7.1 RBC 4.71 Hgb 14.4 Hct 42.8 MCV 90.9 MCH 30.6 MCHC 33.6 RDW 13.2 Plt Count 236 MPV 9.5 Immature Gran % (Auto) 1.4 H Neut % (Auto) 67.5 Lymph % (Auto) 15.3 L [place] % (Auto) 15.1 H Eos % (Auto) 0.4 Baso % (Auto) 0.3 Lymph # (Auto) 1.09 [place] # (Auto) 1.1 H Eos # (Auto) 0.0 Baso # (Auto) 0.0 Abs Immat Gran (auto) 0.10 H Absolute Neuts (auto) 4.8 Absolute Nucleated RBC 0.000 Nucleated RBC % 0.0 Sodium 136 L Potassium 3.8 Chloride 107 Carbon Dioxide 25 Anion Gap 4 BUN 18 Creatinine 1.03 Estim Creat Clear Calc 73 Estimated GFR > 60 Glucose 127 H Calcium 8.5 Total Bilirubin 2.8 H AST 36 ALT 21 Alkaline Phosphatase 95 Total Protein 6.5 Albumin 3.5 Hep B Core Total Ab Cancelled Negative
[2025-05-15] MEDS: LACTATED RINGERS 1,000 ML 75 ML IV CONT (13:11)
[2025-05-15] MEDS: ONDANSETRON INJ 4 MG/2 ML VIAL IV PUSH (13:12)
[2025-05-15 14:00] VITALS: BP 137/85; PULSE 105; RESP 18; TEMP 36.6; O2SAT 95
--- NOTE | 2025-05-15 15:40 | P.PNGI_ITS ---
Progress Note: A&P Assessment and Plan (1) Crohn disease: Qualifiers: Gastrointestinal tract location: small and large intestine Digestive disease complication type: without complication Qualified Code(s): K50.80 - Crohn's disease of both small and large intestine without complications Code(s): K50.90 - Crohn's disease, unspecified, without complications Status: Chronic Assessment and Plan: The patient underwent laparotomy with resection of nearly the entire terminal ileum and right colon due to a small-bowel obstruction precipitated by a retained capsule. The patient is currently recovering satisfactorily from the surgical intervention, except for one episode of vomiting earlier today. Following discharge, the patient will be followed in the office to initiate treatment with a biologic agent aimed at preventing disease recurrence. Given the extensive ileal resection, the patient is at high risk for developing bile salt diarrhea and will definitely require parenteral B12 injections. Subjective Date/time seen: 05/15/25 15:40 Interval history: Patient doing well, no abdominal pain, took a liquid diet for breakfast but hours later vomited. He is passing gas and had a small liquid bloody bowel movement earlier today. Review of Systems Constitutional: Constitutional: Reports no additional constitutional complaints, Denies body ache(s) and Denies chills Cardiovascular: Cardiovascular: Denies chest pain Respiratory: Respiratory: Reports no additional respiratory complaints Gastrointestinal: Gastrointestinal: Denies abdominal pain, Reports hematochezia and Reports vomiting Exam Const: General: comfortable and no acute distress Resp: Auscultation: clear to auscultation bilaterally Cardio: Rate: regular rate Rhythm: regular rhythm GI: GI Palp: Yes Soft to palpation Auscultation: normal bowel sounds Other: Midline scar with no evidence of erythema Objective Data Vital Signs Vital Signs: Vital Signs - 24 hr 05/14/25 20:00 05/14/25 20:51 05/15/25 03:55 Temperature 99.0 F 97.6 F Pulse Rate 86 86 93 Respiratory Rate 20 20 20 Blood Pressure 158/88 H 161/90 H Pulse Oximetry 97 97 96 Oxygen Delivery Room Air 05/15/25 09:22 Temperature Pulse Rate Respiratory Rate 20 Blood Pressure Pulse Oximetry 96 Oxygen Delivery Room Air Intake/Output Intake/Output: Intake & Output 05/12/25 05/13/25 05/14/25 05/15/25 23:59 23:59 23:59 23:59 Intake Total 1837.5 2920 4901.7 3210.4 Output Total 1275 1225 400 Balance 1837.5 1645 3676.7 2810.4 Meds/Results Medications: Active Medications Generic Name Dose Route Start Last Admin Trade Name Freq PRN Reason Stop Dose Admin Acetaminophen 650 mg 05/12/25 19:54 Acetaminophen 650 Mg Suppository RECTAL Q6H PRN Mild Pain (1-3) or Fever Enoxaparin Sodium 40 mg 05/13/25 09:00 05/15/25 09:22 Enoxaparin 40 Mg/0.4 Ml Syringe SUB-Q 40 mg DAILY LUPILLO Administration Hydromorphone HCl 1 mg 05/12/25 19:54 05/12/25 21:19 Hydromorphone Hcl Inj (*Crx) 1 Mg/Ml Syr IV PUSH 1 mg Q4H PRN Administration Pain Rated 7-10 Hydromorphone HCl 0.5 mg 05/12/25 19:54 Hydromorphone Hcl Inj (*Crx) 1 Mg/Ml Syr IV PUSH Q4H PRN Pain Rated 4-6 Ibuprofen 800 mg in 200 mls @ 400 mls/hr 05/12/25 19:54 05/15/25 11:28 Caldolor 800 Mg/200 Ml IVPB Infused Q8H LUPILLO Infusion Lactated Ringer's 1,000 mls @ 75 mls/hr 05/13/25 00:30 05/15/25 13:11 Lr - Lactated Ringers Iv IV CONT 75 mls/hr .[id number] LUPILOL Administration Lidocaine 1 patch 05/13/25 09:00 05/15/25 09:22 Lidocaine 5% Patch TRANSDERM 1 patch DAILY LUPILLO Administration Metoprolol Tartrate 5 mg 05/12/25 19:54 Metoprolol Tartrate Inj 5 Mg/5 Ml Vial IV PUSH Q4H PRN Hypertension Ondansetron HCl 4 mg 05/12/25 19:54 05/15/25 13:12 Ondansetron Inj 4 Mg/2 Ml Vial IV PUSH 4 mg Q6H PRN Administration Nausea And Vomiting Radiology Results: ITS Impressions Abdomen/Pelvis CT 05/12/25 08:23 IMPRESSION: 1. Metallic device/foreign body in the distal ileum consistent with enteric video device. Small bowel wall thickening in this area with proximal distended small bowel could represent mechanical/inflammatory enteritis with proximal ileus. Developing small bowel obstruction however may have a similar appearance. 2. Ascending thoracic aortic aneurysm measuring 4.7 cm at the level of the right pulmonary artery. The thoracic aorta is only partially visualized on this abdominal/pelvic CT. 3.: Cholelithiasis with no gross CT evidence of acute cholecystitis. Labs Labs: Laboratory Results - last 24 hr 05/14/25 05/14/25 05/15/25 05:11 05:11 05:41 WBC 7.1 RBC 4.71 Hgb 14.4 Hct 42.8 MCV 90.9 MCH 30.6 MCHC 33.6 RDW 13.2 Plt Count 236 MPV 9.5 Immature Gran % (Auto) 1.4 H Neut % (Auto) 67.5 Lymph % (Auto) 15.3 L [place] % (Auto) 15.1 H Eos % (Auto) 0.4 Baso % (Auto) 0.3 Lymph # (Auto) 1.09 [place] # (Auto) 1.1 H Eos # (Auto) 0.0 Baso # (Auto) 0.0 Abs Immat Gran (auto) 0.10 H Absolute Neuts (auto) 4.8 Absolute Nucleated RBC 0.000 Nucleated RBC % 0.0 Sodium 136 L Potassium 3.8 Chloride 107 Carbon Dioxide 25 Anion Gap 4 BUN 18 Creatinine 1.03 Estim Creat Clear Calc 73 Estimated GFR > 60 Glucose 127 H Calcium 8.5 Total Bilirubin 2.8 H AST 36 ALT 21 Alkaline Phosphatase 95 Total Protein 6.5 Albumin 3.5 Hep B Core Total Ab Cancelled Negative
[2025-05-15 20:00] VITALS: PULSE 105; RESP 18; O2SAT 95
[2025-05-15 22:00] VITALS: BP 149/85; PULSE 99; RESP 18; TEMP 36.8; O2SAT 98
[2025-05-16] MEDS: IBUPROFEN IV 800 MG/200 ML 800 MG/200 ML BAG 400 MG IVPB ×2 (02:55→11:52)
[2025-05-16] MEDS: ACETAMINOPHEN 325 MG TABLET 650 MG PO (02:55)
[2025-05-16] MEDS: LACTATED RINGERS 1,000 ML 75 ML IV CONT (03:56)
[2025-05-16 05:23] LABS: Hematocrit 38.2 % (42.0-52.0); Hemoglobin 12.8 g/dL (14.0-18.0); Mean Corpuscular HGB Conc 33.5 g/dl (32-36); Mean Corpuscular Hemoglobin 30.2 pg (26-34); Mean Corpuscular Volume 90.1 fl (80-100); Platelet Count Result 214 k/mm3 (150-375); Red Blood Count 4.24 M/mm3 (4.6-6.20); White Blood Count 8.1 K/mm3 (4.5-10.0)
[2025-05-16 05:43] LABS: Anion Gap 3 mmol/L (4-12); Blood Urea Nitrogen 18 mg/dL (9-20); Calcium 8.2 mg/dL (8.4-10.2); Carbon Dioxide 27 mmol/L (22-30); Chloride 106 mmol/L (98-107); Estimated CRCL calculation 74 ml/min; Estimated Glomerular Filt Rate > 60; Glucose 103 mg/dL (65-110); Potassium 3.9 mmol/L (3.4-5.0); Sodium 136 mmol/L (137-145)
[2025-05-16 06:00] VITALS: BP 144/86; PULSE 88; RESP 18; TEMP 36.9; O2SAT 98
[2025-05-16] MEDS: ENOXAPARIN 40 MG/0.4 ML SYRINGE SUB-Q (08:51)
[2025-05-16] MEDS: LIDOCAINE 5% PATCH 1 PATCH TRANSDERM (08:51)
--- NOTE | 2025-05-16 09:00 | PM.IMPN2 ---
Assessment and Plan Assessment and Plan (1) Small bowel obstruction: Code(s): K56.609 - Unspecified intestinal obstruction, unspecified as to partial versus complete obstruction Status: Acute Plan SBO CT AP showed metallic device in the distal ileum S/p ExLap with ileocecal resection Had capsule endoscopy a day prior which caused the obstruction Still on clear liquid diet GI and Gen surgery on board monitor Polycythemia, resolved Hb 12.8, 18.5 on admission Testosterone on hold continue IVF above, monitor Crohn's disease patient noted capsule endoscopy was administered yesterday monitor BPH Continue home meds and monitor for urinary retention DVT prophylaxis on Sq Lovenox full code Subjective Date/time seen: 05/16/25 09:00 Interval history: Comfortable at bedside, not tolerating diet yet still on clear liquid diet Review of Systems Review of Systems: All other systems reviewed and negative except in the history above. Exam Narrative: General: alert and comfortable Eyes: EOMI, PERRLA ENNT External ears normal, Neck is supple, no masses, Respiratory systems: Clear to auscultation Cardiovascular S1, S2, normal rhythm, no murmur, rub, or gallop; no thrill or palpable murmurs on palpation. Gastrointestinal: soft, non-tender, and non-distended abdomen with no masses; BS present Skin: no rash, lesions, ulcerations, subcutaneous nodules or induration Musculoskeletal: no abnormality and no tenderness, normal ROM Neurologic: Alert and oriented x3, non focal Mental Status Exam: normal affect Objective Data Vital Signs Vital Signs: Vital Signs - 24 hr 05/15/25 09:22 05/15/25 14:00 05/15/25 20:00 Temperature 97.9 F Pulse Rate 105 H 105 H Respiratory Rate 20 18 18 Blood Pressure 137/85 Pulse Oximetry 96 95 95 Oxygen Delivery Room Air Room Air 05/15/25 22:00 05/16/25 06:00 Temperature 98.3 F 98.5 F Pulse Rate 99 88 Respiratory Rate 18 18 Blood Pressure 149/85 H 144/86 H Pulse Oximetry 98 98 Oxygen Delivery Intake/Output Intake/Output: Intake & Output 05/13/25 05/14/25 05/15/25 05/16/25 23:59 23:59 23:59 23:59 Intake Total 2920 4901.7 4050.4 1700 Output Total 1275 1225 1500 900 Balance 1645 3676.7 2550.4 800 Meds/Results Medications: Active Medications Generic Name Dose Route Start Last Admin Trade Name Freq PRN Reason Stop Dose Admin Acetaminophen 650 mg 05/16/25 02:33 05/16/25 02:55 Acetaminophen 325 Mg Tablet PO 650 mg Q6H PRN Administration Mild Pain (1-3) or Fever Enoxaparin Sodium 40 mg 05/13/25 09:00 05/16/25 08:51 Enoxaparin 40 Mg/0.4 Ml Syringe SUB-Q 40 mg DAILY LUPILLO Administration Hydromorphone HCl 1 mg 05/12/25 19:54 05/12/25 21:19 Hydromorphone Hcl Inj (*Crx) 1 Mg/Ml Syr IV PUSH 1 mg Q4H PRN Administration Pain Rated 7-10 Hydromorphone HCl 0.5 mg 05/12/25 19:54 Hydromorphone Hcl Inj (*Crx) 1 Mg/Ml Syr IV PUSH Q4H PRN Pain Rated 4-6 Ibuprofen 800 mg in 200 mls @ 400 mls/hr 05/12/25 19:54 05/16/25 03:25 Caldolor 800 Mg/200 Ml IVPB Infused Q8H LUPILLO Infusion Lactated Ringer's 1,000 mls @ 75 mls/hr 05/13/25 00:30 05/16/25 03:56 Lr - Lactated Ringers Iv IV CONT 75 mls/hr .[id number] LUPILLO Administration Lidocaine 1 patch 05/13/25 09:00 05/16/25 08:51 Lidocaine 5% Patch TRANSDERM 1 patch DAILY LUPILLO Administration Metoprolol Tartrate 5 mg 05/12/25 19:54 Metoprolol Tartrate Inj 5 Mg/5 Ml Vial IV PUSH Q4H PRN Hypertension Ondansetron HCl 4 mg 05/12/25 19:54 05/15/25 13:12 Ondansetron Inj 4 Mg/2 Ml Vial IV PUSH 4 mg Q6H PRN Administration Nausea And Vomiting Radiology Results: ITS Impressions Abdomen/Pelvis CT 05/12/25 08:23 IMPRESSION: 1. Metallic device/foreign body in the distal ileum consistent with enteric video device. Small bowel wall thickening in this area with proximal distended small bowel could represent mechanical/inflammatory enteritis with proximal ileus. Developing small bowel obstruction however may have a similar appearance. 2. Ascending thoracic aortic aneurysm measuring 4.7 cm at the level of the right pulmonary artery. The thoracic aorta is only partially visualized on this abdominal/pelvic CT. 3.: Cholelithiasis with no gross CT evidence of acute cholecystitis. Labs Labs: Laboratory Results - last 24 hr 05/16/25 05/16/25 05:08 05:09 WBC 8.1 RBC 4.24 L Hgb 12.8 L Hct 38.2 L MCV 90.1 MCH 30.2 MCHC 33.5 RDW 13.2 Plt Count 214 MPV 9.3 Sodium 136 L Potassium 3.9 Chloride 106 Carbon Dioxide 27 Anion Gap 3 L BUN 18 Creatinine 1.02 Estim Creat Clear Calc 74 Estimated GFR > 60 Glucose 103 Calcium 8.2 L
--- NOTE | 2025-05-16 09:51 | WPDGIPROGNO ---
Progress Note: A&P Assessment and Plan (1) Crohn disease: Qualifiers: Gastrointestinal tract location: small and large intestine Digestive disease complication type: without complication Qualified Code(s): K50.80 - Crohn's disease of both small and large intestine without complications Code(s): K50.90 - Crohn's disease, unspecified, without complications Status: Chronic Assessment and Plan: Patient is postoperative day 4 for extensive ileal resection and ileocolonic anastomosis. Clinically doing well. When discharged, will arrange for visit in our clinic and discuss about future biologic therapy to prevent recurrences. Plan -please give him an injection of vitamin B12 before discharge. -before discharge, arrange for GI Clinic for future treatment of Crohn's disease. Subjective Date/time seen: 05/16/25 09:51 Interval history: Patient feels better, no nausea or vomiting, tolerated liquids well. Passing gas and liquid bloody stools. Exam Const: General: comfortable and no acute distress Resp: Auscultation: clear to auscultation bilaterally Cardio: Rate: regular rate Rhythm: regular rhythm GI: Inspection: non-distended GI Palp: Yes Soft to palpation, No Firmness to palpation present (GI), No Tenderness to palpation present (GI) and No Guarding due to palpation present (GI) Auscultation: normal bowel sounds Other: Scar without erythema. Objective Data Vital Signs Vital Signs: Vital Signs - 24 hr 05/15/25 14:00 05/15/25 20:00 05/15/25 22:00 Temperature 97.9 F 98.3 F Pulse Rate 105 H 105 H 99 Respiratory Rate 18 18 18 Blood Pressure 137/85 149/85 H Pulse Oximetry 95 95 98 Oxygen Delivery Room Air 05/16/25 06:00 Temperature 98.5 F Pulse Rate 88 Respiratory Rate 18 Blood Pressure 144/86 H Pulse Oximetry 98 Oxygen Delivery Intake/Output Intake/Output: Intake & Output 05/13/25 05/14/25 05/15/25 05/16/25 23:59 23:59 23:59 23:59 Intake Total 2920 4901.7 4050.4 1940 Output Total 1275 1225 1500 900 Balance 1645 3676.7 2550.4 1040 Meds/Results Medications: Active Medications Generic Name Dose Route Start Last Admin Trade Name Freq PRN Reason Stop Dose Admin Acetaminophen 650 mg 05/16/25 02:33 05/16/25 02:55 Acetaminophen 325 Mg Tablet PO 650 mg Q6H PRN Administration Mild Pain (1-3) or Fever Enoxaparin Sodium 40 mg 05/13/25 09:00 05/16/25 08:51 Enoxaparin 40 Mg/0.4 Ml Syringe SUB-Q 40 mg DAILY LUPILLO Administration Hydromorphone HCl 1 mg 05/12/25 19:54 05/12/25 21:19 Hydromorphone Hcl Inj (*Crx) 1 Mg/Ml Syr IV PUSH 1 mg Q4H PRN Administration Pain Rated 7-10 Hydromorphone HCl 0.5 mg 05/12/25 19:54 Hydromorphone Hcl Inj (*Crx) 1 Mg/Ml Syr IV PUSH Q4H PRN Pain Rated 4-6 Ibuprofen 800 mg in 200 mls @ 400 mls/hr 05/12/25 19:54 05/16/25 03:25 Caldolor 800 Mg/200 Ml IVPB Infused Q8H LUPILLO Infusion Lactated Ringer's 1,000 mls @ 75 mls/hr 05/13/25 00:30 05/16/25 03:56 Lr - Lactated Ringers Iv IV CONT 75 mls/hr .[id number] LUPILLO Administration Lidocaine 1 patch 05/13/25 09:00 05/16/25 08:51 Lidocaine 5% Patch TRANSDERM 1 patch DAILY LUPILLO Administration Metoprolol Tartrate 5 mg 05/12/25 19:54 Metoprolol Tartrate Inj 5 Mg/5 Ml Vial IV PUSH Q4H PRN Hypertension Ondansetron HCl 4 mg 05/12/25 19:54 05/15/25 13:12 Ondansetron Inj 4 Mg/2 Ml Vial IV PUSH 4 mg Q6H PRN Administration Nausea And Vomiting Radiology Results: ITS Impressions Abdomen/Pelvis CT 05/12/25 08:23 IMPRESSION: 1. Metallic device/foreign body in the distal ileum consistent with enteric video device. Small bowel wall thickening in this area with proximal distended small bowel could represent mechanical/inflammatory enteritis with proximal ileus. Developing small bowel obstruction however may have a similar appearance. 2. Ascending thoracic aortic aneurysm measuring 4.7 cm at the level of the right pulmonary artery. The thoracic aorta is only partially visualized on this abdominal/pelvic CT. 3.: Cholelithiasis with no gross CT evidence of acute cholecystitis. Labs Labs: Laboratory Results - last 24 hr 05/16/25 05/16/25 05:08 05:09 WBC 8.1 RBC 4.24 L Hgb 12.8 L Hct 38.2 L MCV 90.1 MCH 30.2 MCHC 33.5 RDW 13.2 Plt Count 214 MPV 9.3 Sodium 136 L Potassium 3.9 Chloride 106 Carbon Dioxide 27 Anion Gap 3 L BUN 18 Creatinine 1.02 Estim Creat Clear Calc 74 Estimated GFR > 60 Glucose 103 Calcium 8.2 L
--- NOTE | 2025-05-16 12:18 | P.PNGS_ITS ---
Progress Note: A&P Assessment and Plan (1) Crohn disease: Qualifiers: Gastrointestinal tract location: small and large intestine Digestive disease complication type: without complication Qualified Code(s): K50.80 - Crohn's disease of both small and large intestine without complications Code(s): K50.90 - Crohn's disease, unspecified, without complications Status: Chronic Assessment and Plan: * Advance diet * Increase activity * Possibly home tomorrow (2) Foreign body of small intestine: Code(s): T18.3XXA - Foreign body in small intestine, initial encounter Status: Acute (3) Stricture of ileum: Code(s): K56.699 - Other intestinal obstruction unspecified as to partial versus complete obstruction Status: Acute Subjective Subjective Date/Time Seen: 05/16/25 12:18 Interval history: Tolerating clear liquids. Bowels moving. Pain controlled. Ambulating well. Exam GI: Inspection: distended and incision (Intact) GI Palp: Yes Soft to palpation, Yes Tenderness to palpation present (GI) (Incisional) and No Guarding due to palpation present (GI) Auscultation: normal bowel sounds Objective Data Vital Signs Vital Signs: Vital Signs - 24 hr 05/15/25 14:00 05/15/25 20:00 05/15/25 22:00 Temperature 97.9 F 98.3 F Pulse Rate 105 H 105 H 99 Respiratory Rate 18 18 18 Blood Pressure 137/85 149/85 H Pulse Oximetry 95 95 98 Oxygen Delivery Room Air 05/16/25 06:00 05/16/25 08:00 Temperature 98.5 F Pulse Rate 88 Respiratory Rate 18 Blood Pressure 144/86 H Pulse Oximetry 98 Oxygen Delivery Room Air Intake/Output Intake/Output: Intake & Output 05/13/25 05/14/25 05/15/25 05/16/25 23:59 23:59 23:59 23:59 Intake Total 2920 4901.7 4050.4 1940 Output Total 1275 1225 1500 900 Balance 1645 3676.7 2550.4 1040 Meds/Results Medications: Active Medications Generic Name Dose Route Start Last Admin Trade Name Freq PRN Reason Stop Dose Admin Acetaminophen 650 mg 05/16/25 02:33 05/16/25 02:55 Acetaminophen 325 Mg Tablet PO 650 mg Q6H PRN Administration Mild Pain (1-3) or Fever Hydrocodone Bitart/Acetaminophen 1 tab 05/16/25 12:17 Hydrocodone/Acetaminophen (*Crx) 5-325 Mg Tablet PO Q4H PRN Pain Rated 4-6 Enoxaparin Sodium 40 mg 05/13/25 09:00 05/16/25 08:51 Enoxaparin 40 Mg/0.4 Ml Syringe SUB-Q 40 mg DAILY LUPILLO Administration Hydromorphone HCl 1 mg 05/12/25 19:54 05/12/25 21:19 Hydromorphone Hcl Inj (*Crx) 1 Mg/Ml Syr IV PUSH 1 mg Q4H PRN Administration Pain Rated 7-10 Hydromorphone HCl 0.5 mg 05/12/25 19:54 Hydromorphone Hcl Inj (*Crx) 1 Mg/Ml Syr IV PUSH Q4H PRN Pain Rated 4-6 Hydromorphone HCl 1 mg 05/16/25 12:17 Hydromorphone Hcl Inj (*Crx) 1 Mg/Ml Syr IV PUSH Q2H PRN Breakthrough Pain Rated 7-10 or NPO Hydromorphone HCl 0.5 mg 05/16/25 12:17 Hydromorphone Hcl Inj (*Crx) 1 Mg/Ml Syr IV PUSH Q2H PRN Breakthrough Pain Rated 4-6 or NPO Ibuprofen 800 mg in 200 mls @ 400 mls/hr 05/12/25 19:54 05/16/25 11:52 Caldolor 800 Mg/200 Ml IVPB 400 mls/hr Q8H LUPILLO Administration Lactated Ringer's 1,000 mls @ 75 mls/hr 05/13/25 00:30 05/16/25 03:56 Lr - Lactated Ringers Iv IV CONT 75 mls/hr .[id number] LUPILLO Administration Ibuprofen 800 mg in 200 mls @ 400 mls/hr 05/16/25 12:17 Caldolor 800 Mg/200 Ml IVPB Q6H PRN Breakthrough Pain Rated 1-3 or NPO Lidocaine 1 patch 05/13/25 09:00 05/16/25 08:51 Lidocaine 5% Patch TRANSDERM 1 patch DAILY LUPILLO Administration Metoprolol Tartrate 5 mg 05/12/25 19:54 Metoprolol Tartrate Inj 5 Mg/5 Ml Vial IV PUSH Q4H PRN Hypertension Ondansetron HCl 4 mg 05/12/25 19:54 05/15/25 13:12 Ondansetron Inj 4 Mg/2 Ml Vial IV PUSH 4 mg Q6H PRN Administration Nausea And Vomiting Radiology Results: ITS Impressions Abdomen/Pelvis CT 05/12/25 08:23 IMPRESSION: 1. Metallic device/foreign body in the distal ileum consistent with enteric video device. Small bowel wall thickening in this area with proximal distended small bowel could represent mechanical/inflammatory enteritis with proximal ileus. Developing small bowel obstruction however may have a similar appearance. 2. Ascending thoracic aortic aneurysm measuring 4.7 cm at the level of the right pulmonary artery. The thoracic aorta is only partially visualized on this abd ominal/pelvic CT. 3.: Cholelithiasis with no gross CT evidence of acute cholecystitis. Labs Labs: Laboratory Results - last 24 hr 05/16/25 05/16/25 05:08 05:09 WBC 8.1 RBC 4.24 L Hgb 12.8 L Hct 38.2 L MCV 90.1 MCH 30.2 MCHC 33.5 RDW 13.2 Plt Count 214 MPV 9.3 Sodium 136 L Potassium 3.9 Chloride 106 Carbon Dioxide 27 Anion Gap 3 L BUN 18 Creatinine 1.02 Estim Creat Clear Calc 74 Estimated GFR > 60 Glucose 103 Calcium 8.2 L
[2025-05-16 14:00] VITALS: BP 152/90; PULSE 93; RESP 16; TEMP 36.6; O2SAT 99
[2025-05-16] MEDS: ONDANSETRON INJ 4 MG/2 ML VIAL IV PUSH (19:00)
[2025-05-16 20:00] VITALS: PULSE 91; RESP 18; O2SAT 97
[2025-05-16 21:25] VITALS: O2SAT 97
[2025-05-16 21:57] VITALS: BP 135/79; PULSE 91; RESP 18; TEMP 36.8; O2SAT 97
[2025-05-17 06:00] VITALS: BP 130/77; PULSE 86; RESP 16; TEMP 36.4; O2SAT 96
[2025-05-17 08:00] VITALS: PULSE 86; RESP 16; O2SAT 96
[2025-05-17] MEDS: LIDOCAINE 5% PATCH 1 PATCH TRANSDERM (08:29)
[2025-05-17] MEDS: ENOXAPARIN 40 MG/0.4 ML SYRINGE SUB-Q (08:30)
--- NOTE | 2025-05-17 11:33 | PM.IMPN2 ---
Assessment and Plan Assessment and Plan (1) Small bowel obstruction: Code(s): K56.609 - Unspecified intestinal obstruction, unspecified as to partial versus complete obstruction Status: Acute Plan SBO CT AP showed metallic device in the distal ileum S/p ExLap with ileocecal resection Had capsule endoscopy a day prior which caused the obstruction will try soft diet today, if passes then will likely discharge today GI and Gen surgery on board monitor Polycythemia, resolved Hb 12.8, 18.5 on admission Testosterone on hold continue IVF above, monitor Crohn's disease patient noted capsule endoscopy was administered yesterday monitor BPH Continue home meds and monitor for urinary retention DVT prophylaxis on Sq Lovenox full code Subjective Date/time seen: 05/17/25 11:33 Interval history: Patient feels better, no nausea or vomiting, tolerated liquids well. Passing gas and liquid bloody stools. Review of Systems Review of Systems: All other systems reviewed and negative except in the history above. Exam Narrative: General: alert and comfortable Eyes: EOMI, PERRLA ENNT External ears normal, Neck is supple, no masses, Respiratory systems: Clear to auscultation Cardiovascular S1, S2, normal rhythm, no murmur, rub, or gallop; no thrill or palpable murmurs on palpation. Gastrointestinal: soft, non-tender, and non-distended abdomen with no masses; BS present Skin: no rash, lesions, ulcerations, subcutaneous nodules or induration Musculoskeletal: no abnormality and no tenderness, normal ROM Neurologic: Alert and oriented x3, non focal Mental Status Exam: normal affect Objective Data Vital Signs Vital Signs: Vital Signs - 24 hr 05/16/25 14:00 05/16/25 20:00 05/16/25 21:25 Temperature 97.8 F Pulse Rate 93 91 Respiratory Rate 16 18 Blood Pressure 152/90 H Pulse Oximetry 99 97 97 Oxygen Delivery Room Air Room Air 05/16/25 21:57 05/17/25 06:00 05/17/25 08:00 Temperature 98.3 F 97.5 F L Pulse Rate 91 86 86 Respiratory Rate 18 16 16 Blood Pressure 135/79 130/77 Pulse Oximetry 97 96 96 Oxygen Delivery Room Air Intake/Output Intake/Output: Intake & Output 05/14/25 05/15/25 05/16/25 05/17/25 23:59 23:59 23:59 23:59 Intake Total 4901.7 4050.4 2820 520 Output Total 1225 1500 900 Balance 3676.7 2550.4 1920 520 Meds/Results Medications: Active Medications Generic Name Dose Route Start Last Admin Trade Name Freq PRN Reason Stop Dose Admin Acetaminophen 650 mg 05/16/25 02:33 05/16/25 02:55 Acetaminophen 325 Mg Tablet PO 650 mg Q6H PRN Administration Mild Pain (1-3) or Fever Hydrocodone Bitart/Acetaminophen 1 tab 05/16/25 12:17 Hydrocodone/Acetaminophen (*Crx) 5-325 Mg Tablet PO Q4H PRN Pain Rated 4-6 Hydrocodone Bitart/Acetaminophen 1 tab 05/16/25 12:17 Hydrocodone/Acetaminophen (*Crx) 10-325 Mg Tablet PO Q4H PRN Pain Rated 7-10 Enoxaparin Sodium 40 mg 05/13/25 09:00 05/17/25 08:30 Enoxaparin 40 Mg/0.4 Ml Syringe SUB-Q 40 mg DAILY LUPILLO Administration Hydromorphone HCl 1 mg 05/16/25 12:17 Hydromorphone Hcl Inj (*Crx) 1 Mg/Ml Syr IV PUSH Q2H PRN Breakthrough Pain Rated 7-10 or NPO Hydromorphone HCl 0.5 mg 05/16/25 12:17 Hydromorphone Hcl Inj (*Crx) 1 Mg/Ml Syr IV PUSH Q2H PRN Breakthrough Pain Rated 4-6 or NPO Ibuprofen 800 mg in 200 mls @ 400 mls/hr 05/16/25 12:17 Caldolor 800 Mg/200 Ml IVPB Q6H PRN Breakthrough Pain Rated 1-3 or NPO Lidocaine 1 patch 05/13/25 09:00 05/17/25 08:29 Lidocaine 5% Patch TRANSDERM 1 patch DAILY LUPILLO Administration Metoprolol Tartrate 5 mg 05/12/25 19:54 Metoprolol Tartrate Inj 5 Mg/5 Ml Vial IV PUSH Q4H PRN Hypertension Ondansetron HCl 4 mg 05/12/25 19:54 05/16/25 19:00 Ondansetron Inj 4 Mg/2 Ml Vial IV PUSH 4 mg Q6H PRN Administration Nausea And Vomiting Radiology Results: ITS Impressions Abdomen/Pelvis CT 05/12/25 08:23 IMPRESSION: 1. Metallic device/foreign body in the distal ileum consistent with enteric video device. Small bowel wall thickening in this area with proximal distended small bowel could represent mechanical/inflammatory enteritis with proximal ileus. Developing small bowel obstruction however may have a similar appearance. 2. Ascending thoracic aortic aneurysm measuring 4.7 cm at the level of the right pulmonary artery. The thoracic aorta is only partially visualized on this abdominal/pelvic CT. 3.: Cholelithiasis with no gross CT evidence of acute cholecystitis.
--- NOTE | 2025-05-17 12:08 | P.PNGS_ITS ---
Progress Note: A&P Assessment and Plan (1) Crohn disease: Qualifiers: Digestive disease complication type: without complication Gastrointestinal tract location: small and large intestine Qualified Code(s): K50.80 - Crohn's disease of both small and large intestine without complications Code(s): K50.90 - Crohn's disease, unspecified, without complications Status: Chronic Assessment and Plan: * Patient had vomiting again last night, but is feeling much better after having multiple BMs overnight. Seems like his ileus is resolving. Will advance to a soft diet today. If he is able to tolerate solid foods and continues to improve, then hopefully he can discharge home tomorrow. If he begins vomiting again, then we will back off his diet. Will repeat labs in the am. (2) Foreign body of small intestine: Code(s): T18.3XXA - Foreign body in small intestine, initial encounter Status: Acute (3) Stricture of ileum: Code(s): K56.699 - Other intestinal obstruction unspecified as to partial versus complete obstruction Status: Acute Plan I have discussed the patient's case, recommendations, and treatment plan with Dr. Su. Subjective Subjective Date/Time Seen: 05/17/25 12:08 Post Op day: 5 (Diagnostic laparoscopy with conversion to open laparotomy with ileocecal bowel resection and [id number] stapled anti peristaltic ileocolic anastomosis) Interval history: Patient feeling well this morning. Over the weekend, he had vomiting on Saturday evening and Saturday evening. He was advanced to full liquids yesterday and still had some bloating and belching. He ended up vomiting last night around 7 pm. He reports having diarrhea yesterday and all night. He estimates having at least 6 BMs overnight that were liquid. He is feeling better this morning. Bloating is better. No nausea or abdominal pain. No vomiting since last night. He tolerated breakfast well without any issues. He is up in the chair and has been tolerating activity well. He has not required any narcotics for incisional discomfort for the past few days. No other complaints at this time. Exam Const: General: comfortable and no acute distress Orientation/consciousness: patient oriented x3 GI: Inspection: incision (dry and glue intact, no erythema, no drainage) and other (mildly distended) GI Palp: Yes Soft to palpation, No Tenderness to palpation present (GI), No Guarding due to palpation present (GI) and No Rebound tenderness present Auscultation: normal bowel sounds Extrem: General: no calf tenderness and no edema Objective Data Vital Signs Vital Signs: Vital Signs - 24 hr 05/16/25 14:00 05/16/25 20:00 05/16/25 21:25 Temperature 97.8 F Pulse Rate 93 91 Respiratory Rate 16 18 Blood Pressure 152/90 H Pulse Oximetry 99 97 97 Oxygen Delivery Room Air Room Air 05/16/25 21:57 05/17/25 06:00 05/17/25 08:00 Temperature 98.3 F 97.5 F L Pulse Rate 91 86 86 Respiratory Rate 18 16 16 Blood Pressure 135/79 130/77 Pulse Oximetry 97 96 96 Oxygen Delivery Room Air Intake/Output Intake/Output: Intake & Output 05/14/25 05/15/25 05/16/25 05/17/25 23:59 23:59 23:59 23:59 Intake Total 4901.7 4050.4 2820 520 Output Total 1225 1500 900 Balance 3676.7 2550.4 1920 520 Meds/Results Medications: Active Medications Generic Name Dose Route Start Last Admin Trade Name Freq PRN Reason Stop Dose Admin Acetaminophen 650 mg 05/16/25 02:33 05/16/25 02:55 Acetaminophen 325 Mg Tablet PO 650 mg Q6H PRN Administration Mild Pain (1-3) or Fever Hydrocodone Bitart/Acetaminophen 1 tab 05/16/25 12:17 Hydrocodone/Acetaminophen (*Crx) 5-325 Mg Tablet PO Q4H PRN Pain Rated 4-6 Hydrocodone Bitart/Acetaminophen 1 tab 05/16/25 12:17 Hydrocodone/Acetaminophen (*Crx) 10-325 Mg Tablet PO Q4H PRN Pain Rated 7-10 Enoxaparin Sodium 40 mg 05/13/25 09:00 05/17/25 08:30 Enoxaparin 40 Mg/0.4 Ml Syringe SUB-Q 40 mg DAILY LUPILLO Administration Hydromorphone HCl 1 mg 05/16/25 12:17 Hydromorphone Hcl Inj (*Crx) 1 Mg/Ml Syr IV PUSH Q2H PRN Breakthrough Pain Rated 7-10 or NPO Hydromorphone HCl 0.5 mg 05/16/25 12:17 Hydromorphone Hcl Inj (*Crx) 1 Mg/Ml Syr IV PUSH Q2H PRN Breakthrough Pain Rated 4-6 or NPO Ibuprofen 800 mg in 200 mls @ 400 mls/hr 05/16/25 12:17 Caldolor 800 Mg/200 Ml IVPB Q6H PRN Breakthrough Pain Rated 1-3 or NPO Lidocaine 1 patch 05/13/25 09:00 05/17/25 08:29 Lidocaine 5% Patch TRANSDERM 1 patch DAILY LUPILLO Administration Metoprolol Tartrate 5 mg 05/12/25 19:54 Metoprolol Tartrate Inj 5 Mg/5 Ml Vial IV PUSH Q4H PRN Hypertension Ondansetron HCl 4 mg 05/12/25 19:54 05/16/25 19:00 Ondansetron Inj 4 Mg/2 Ml Vial IV PUSH 4 mg Q6H PRN Administration Nausea And Vomiting Radiology Results: ITS Impressions Abdomen/Pelvis CT 05/12/25 08:23 IMPRESSION: 1. Metallic device/foreign body in the distal ileum consistent with enteric video device. Small bowel wall thickening in this area with proximal distended small bowel could represent mechanical/inflammatory enteritis with proximal ileus. Developing small bowel obstruction however may have a similar appearance. 2. Ascending thoracic aortic aneurysm measuring 4.7 cm at the level of the right pulmonary artery. The thoracic aorta is only partially visualized on this abdominal/pelvic CT. 3.: Cholelithiasis with no gross CT evidence of acute cholecystitis.
[2025-05-17 14:00] VITALS: BP 147/81; PULSE 81; RESP 16; TEMP 36.5; O2SAT 98
[2025-05-17 20:00] VITALS: PULSE 85; RESP 18; O2SAT 98
[2025-05-17 20:37] VITALS: BP 138/77; PULSE 85; RESP 18; TEMP 36.7; O2SAT 98
[2025-05-18 04:55] VITALS: BP 121/67; PULSE 82; RESP 17; TEMP 36.5; O2SAT 96
[2025-05-18 05:09] LABS: Hematocrit 40.2 % (42.0-52.0); Hemoglobin 12.8 g/dL (14.0-18.0); Mean Corpuscular HGB Conc 31.8 g/dl (32-36); Mean Corpuscular Hemoglobin 30.1 pg (26-34); Mean Corpuscular Volume 94.6 fl (80-100); Platelet Count Result 229 k/mm3 (150-375); Red Blood Count 4.25 M/mm3 (4.6-6.20); White Blood Count 10.1 K/mm3 (4.5-10.0)
[2025-05-18 05:34] LABS: Anion Gap 4 mmol/L (4-12); Blood Urea Nitrogen 18 mg/dL (9-20); Calcium 8.2 mg/dL (8.4-10.2); Carbon Dioxide 27 mmol/L (22-30); Chloride 105 mmol/L (98-107); Estimated CRCL calculation 78 ml/min; Estimated Glomerular Filt Rate > 60; Glucose 96 mg/dL (65-110); Potassium 3.6 mmol/L (3.4-5.0); Sodium 136 mmol/L (137-145)
[2025-05-18] MEDS: ENOXAPARIN 40 MG/0.4 ML SYRINGE SUB-Q (09:54)
[2025-05-18] MEDS: LIDOCAINE 5% PATCH 1 PATCH TRANSDERM (09:54)
--- NOTE | 2025-05-18 10:29 | P.PNGS_ITS ---
Progress Note: A&P Assessment and Plan (1) Crohn disease: Qualifiers: Gastrointestinal tract location: small and large intestine Digestive disease complication type: without complication Qualified Code(s): K50.80 - Crohn's disease of both small and large intestine without complications Code(s): K50.90 - Crohn's disease, unspecified, without complications Status: Chronic Assessment and Plan: * Patient doing much better today. No nausea or vomiting overnight. Tolerating diet. Having good bowel function. * Surgically stable for discharge with follow up in general surgery office in 2- 3 weeks. Patient should follw up with GI per their recommendations. (2) Foreign body of small intestine: Code(s): T18.3XXA - Foreign body in small intestine, initial encounter Status: Acute (3) Stricture of ileum: Code(s): K56.699 - Other intestinal obstruction unspecified as to partial versus complete obstruction Status: Acute Plan I have discussed the patient's case, recommendations, and treatment plan with Dr. Su. Subjective Subjective Date/Time Seen: 05/18/25 10:29 Patient reports: no new complaints, feels better, tolerating a regular diet (soft), bowel movement and afebrile Interval history: Patient doing much better today. Sitting up in chair eager for discharge. Exam Const: General: comfortable and no acute distress Resp: Effort & Inspection: normal respiratory effort Cardio: Rate: regular rate GI: Inspection: non-distended GI Palp: Yes Soft to palpation, Yes Tenderness to palpation present (GI) (minimal) and No Guarding due to palpation present (GI) Auscultation: normal bowel sounds Other: incision clean and dry with no signs of infection or dehiscence Skin: General skin exam: normal color and no rashes or lesions noted Objective Data Vital Signs Vital Signs: Vital Signs - 24 hr 05/17/25 14:00 05/17/25 18:34 05/17/25 20:00 Temperature 97.7 F Pulse Rate 81 85 Respiratory Rate 16 18 Blood Pressure 147/81 H Pulse Oximetry 98 98 Oxygen Delivery Room Air Room Air 05/17/25 20:37 05/18/25 04:55 Temperature 98.1 F 97.7 F Pulse Rate 85 82 Respiratory Rate 18 17 Blood Pressure 138/77 121/67 Pulse Oximetry 98 96 Oxygen Delivery Intake/Output Intake/Output: Intake & Output 05/15/25 05/16/25 05/17/25 05/18/25 23:59 23:59 23:59 23:59 Intake Total 4050.4 2820 1000 572 Output Total 1500 900 Balance 2550.4 1920 1000 572 Meds/Results Medications: Active Medications Generic Name Dose Route Start Last Admin Trade Name Freq PRN Reason Stop Dose Admin Acetaminophen 650 mg 05/16/25 02:33 05/16/25 02:55 Acetaminophen 325 Mg Tablet PO 650 mg Q6H PRN Administration Mild Pain (1-3) or Fever Hydrocodone Bitart/Acetaminophen 1 tab 05/16/25 12:17 Hydrocodone/Acetaminophen (*Crx) 5-325 Mg Tablet PO Q4H PRN Pain Rated 4-6 Hydrocodone Bitart/Acetaminophen 1 tab 05/16/25 12:17 Hydrocodone/Acetaminophen (*Crx) 10-325 Mg Tablet PO Q4H PRN Pain Rated 7-10 Enoxaparin Sodium 40 mg 05/13/25 09:00 05/18/25 09:54 Enoxaparin 40 Mg/0.4 Ml Syringe SUB-Q 40 mg DAILY LUPILLO Administration Hydromorphone HCl 1 mg 05/16/25 12:17 Hydromorphone Hcl Inj (*Crx) 1 Mg/Ml Syr IV PUSH Q2H PRN Breakthrough Pain Rated 7-10 or NPO Hydromorphone HCl 0.5 mg 05/16/25 12:17 Hydromorphone Hcl Inj (*Crx) 1 Mg/Ml Syr IV PUSH Q2H PRN Breakthrough Pain Rated 4-6 or NPO Ibuprofen 800 mg in 200 mls @ 400 mls/hr 05/16/25 12:17 Caldolor 800 Mg/200 Ml IVPB Q6H PRN Breakthrough Pain Rated 1-3 or NPO Lidocaine 1 patch 05/13/25 09:00 05/18/25 09:54 Lidocaine 5% Patch TRANSDERM 1 patch DAILY LUPILLO Administration Metoprolol Tartrate 5 mg 05/12/25 19:54 Metoprolol Tartrate Inj 5 Mg/5 Ml Vial IV PUSH Q4H PRN Hypertension Ondansetron HCl 4 mg 05/12/25 19:54 05/16/25 19:00 Ondansetron Inj 4 Mg/2 Ml Vial IV PUSH 4 mg Q6H PRN Administration Nausea And Vomiting Radiology Results: ITS Impressions Abdomen/Pelvis CT 05/12/25 08:23 IMPRESSION: 1. Metallic device/foreign body in the distal ileum consistent with enteric video device. Small bowel wall thickening in this area with proximal distended small bowel could represent mechanical/inflammatory enteritis with proximal ileus. Developing small bowel obstruction however may have a similar appearance. 2. Ascending thoracic aortic aneurysm measuring 4.7 cm at the level of the right pulmonary artery. The thoracic aorta is only partially visualized on this abdominal/pelvic CT. 3.: Cholelithiasis with no gross CT evidence of acute cholecystitis. Labs Labs: Laboratory Results - last 24 hr 05/14/25 05/18/25 09:17 04:54 WBC 10.1 H RBC 4.25 L Hgb 12.8 L Hct 40.2 L MCV 94.6 MCH 30.1 MCHC 31.8 L RDW 13.3 Plt Count 229 MPV 9.4 Sodium 136 L Potassium 3.6 Chloride 105 Carbon Dioxide 27 Anion Gap 4 BUN 18 Creatinine 0.96 Estim Creat Clear Calc 78 Estimated GFR > 60 Glucose 96 Calcium 8.2 L TB Test (QFT) Gold Plus Negative TB (QFT) Incubation TB Test (QFT) Nil 0.07 TB Test (QFT) Mitogen >10.00 TB Test (QFT) +TB1 -NIL 0.06 TB Test (QFT) +TB2 -NIL 0.07 TB Test (QFT) Criteria Comment
--- NOTE | 2025-05-18 12:14 | PM.IMPN2 ---
Assessment and Plan Assessment and Plan (1) Small bowel obstruction: Code(s): K56.609 - Unspecified intestinal obstruction, unspecified as to partial versus complete obstruction Status: Acute Plan SBO CT AP showed metallic device in the distal ileum S/p ExLap with ileocecal resection Had capsule endoscopy a day prior which caused the obstruction will try soft diet today, if passes then will likely discharge today GI and Gen surgery on board monitor Polycythemia, resolved Hb 12.8, 18.5 on admission Testosterone on hold continue IVF above, monitor Crohn's disease patient noted capsule endoscopy was administered yesterday monitor BPH Continue home meds and monitor for urinary retention DVT prophylaxis on Sq Lovenox full code Subjective Date/time seen: 05/18/25 12:14 Review of Systems Review of Systems: All other systems reviewed and negative except in the history above. Exam Narrative: General: alert and comfortable Eyes: EOMI, PERRLA ENNT External ears normal, Neck is supple, no masses, Respiratory systems: Clear to auscultation Cardiovascular S1, S2, normal rhythm, no murmur, rub, or gallop; no thrill or palpable murmurs on palpation. Gastrointestinal: soft, non-tender, and non-distended abdomen with no masses; BS present Skin: no rash, lesions, ulcerations, subcutaneous nodules or induration Musculoskeletal: no abnormality and no tenderness, normal ROM Neurologic: Alert and oriented x3, non focal Mental Status Exam: normal affect Objective Data Vital Signs Vital Signs: Vital Signs - 24 hr 05/17/25 14:00 05/17/25 18:34 05/17/25 20:00 Temperature 97.7 F Pulse Rate 81 85 Respiratory Rate 16 18 Blood Pressure 147/81 H Pulse Oximetry 98 98 Oxygen Delivery Room Air Room Air 05/17/25 20:37 05/18/25 04:55 05/18/25 08:00 Temperature 98.1 F 97.7 F Pulse Rate 85 82 Respiratory Rate 18 17 Blood Pressure 138/77 121/67 Pulse Oximetry 98 96 Oxygen Delivery Room Air Intake/Output Intake/Output: Intake & Output 05/15/25 05/16/25 05/17/25 05/18/25 23:59 23:59 23:59 23:59 Intake Total 4050.4 2820 1000 572 Output Total 1500 900 Balance 2550.4 1920 1000 572 Meds/Results Medications: Active Medications Generic Name Dose Route Start Last Admin Trade Name Freq PRN Reason Stop Dose Admin Acetaminophen 650 mg 05/16/25 02:33 05/16/25 02:55 Acetaminophen 325 Mg Tablet PO 650 mg Q6H PRN Administration Mild Pain (1-3) or Fever Hydrocodone Bitart/Acetaminophen 1 tab 05/16/25 12:17 Hydrocodone/Acetaminophen (*Crx) 5-325 Mg Tablet PO Q4H PRN Pain Rated 4-6 Hydrocodone Bitart/Acetaminophen 1 tab 05/16/25 12:17 Hydrocodone/Acetaminophen (*Crx) 10-325 Mg Tablet PO Q4H PRN Pain Rated 7-10 Enoxaparin Sodium 40 mg 05/13/25 09:00 05/18/25 09:54 Enoxaparin 40 Mg/0.4 Ml Syringe SUB-Q 40 mg DAILY LUPILLO Administration Hydromorphone HCl 1 mg 05/16/25 12:17 Hydromorphone Hcl Inj (*Crx) 1 Mg/Ml Syr IV PUSH Q2H PRN Breakthrough Pain Rated 7-10 or NPO Hydromorphone HCl 0.5 mg 05/16/25 12:17 Hydromorphone Hcl Inj (*Crx) 1 Mg/Ml Syr IV PUSH Q2H PRN Breakthrough Pain Rated 4-6 or NPO Ibuprofen 800 mg in 200 mls @ 400 mls/hr 05/16/25 12:17 Caldolor 800 Mg/200 Ml IVPB Q6H PRN Breakthrough Pain Rated 1-3 or NPO Lidocaine 1 patch 05/13/25 09:00 05/18/25 09:54 Lidocaine 5% Patch TRANSDERM 1 patch DAILY LUPILLO Administration Metoprolol Tartrate 5 mg 05/12/25 19:54 Metoprolol Tartrate Inj 5 Mg/5 Ml Vial IV PUSH Q4H PRN Hypertension Ondansetron HCl 4 mg 05/12/25 19:54 05/16/25 19:00 Ondansetron Inj 4 Mg/2 Ml Vial IV PUSH 4 mg Q6H PRN Administration Nausea And Vomiting Radiology Results: ITS Impressions Abdomen/Pelvis CT 05/12/25 08:23 IMPRESSION: 1. Metallic device/foreign body in the distal ileum consistent with enteric video device. Small bowel wall thickening in this area with proximal distended small bowel could represent mechanical/inflammatory enteritis with proximal ileus. Developing small bowel obstruction however may have a similar appearance. 2. Ascending thoracic aortic aneurysm measuring 4.7 cm at the level of the right pulmonary artery. The thoracic aorta is only partially visualized on this abdominal/pelvic CT. 3.: Cholelithiasis with no gross CT evidence of acute cholecystitis. Labs Labs: Laboratory Results - last 24 hr 05/14/25 05/18/25 09:17 04:54 WBC 10.1 H RBC 4.25 L Hgb 12.8 L Hct 40.2 L MCV 94.6 MCH 30.1 MCHC 31.8 L RDW 13.3 Plt Count 229 MPV 9.4 Sodium 136 L Potassium 3.6 Chloride 105 Carbon Dioxide 27 Anion Gap 4 BUN 18 Creatinine 0.96 Estim Creat Clear Calc 78 Estimated GFR > 60 Glucose 96 Calcium 8.2 L TB Test (QFT) Gold Plus Negative TB (QFT) Incubation TB Test (QFT) Nil 0.07 TB Test (QFT) Mitogen >10.00 TB Test (QFT) +TB1 -NIL 0.06 TB Test (QFT) +TB2 -NIL 0.07 TB Test (QFT) Criteria Comment
[2025-05-18 14:00] VITALS: BP 122/73; PULSE 96; RESP 20; TEMP 36.2; O2SAT 98
--- NOTE | 2025-05-18 14:12 | P.DS_ITS ---
DS: Admitting Diagnosis Discharge Date 05/18/2025 Admitting Diagnosis abd pain and vomiting DS: Discharge Diagnosis Discharge Diagnosis (1) Small bowel obstruction: Code(s): K56.609 - Unspecified intestinal obstruction, unspecified as to partial versus complete obstruction Status: Acute Plan Refer to hospital course for brief summary SBO CT AP showed metallic device in the distal ileum S/p ExLap with ileocecal resection Had capsule endoscopy a day prior which caused the obstruction will try soft diet today, if passes then will likely discharge today GI and Gen surgery on board monitor Polycythemia, resolved Hb 12.8, 18.5 on admission Testosterone on hold continue IVF above, monitor Crohn's disease patient noted capsule endoscopy was administered yesterday monitor BPH Continue home meds and monitor for urinary retention DVT prophylaxis on Sq Lovenox full code DS: Summary Hospital Course Hospital Course: 64 yo male with PMH of Crohn's disease, BPH who presented to the ER with abd pain and vomiting. Patient had capsule endoscopy on 05/11/25 by his GI, however about 7 pm in the evening of he started having abd pain, periumbilical, 7/10 in intensity associated wtih episode of vomiting. For worsening abd pain he presented for acute eval. According to GI unfortunately capsule endoscopy got stuck in distal ileum (capsule imaging was reviewed and showed stricturing disease with active inflammation/ulcers in terminal ileum)- patient was taken to OR on 05/12.Small- bowel obstruction secondary to retained endoscopic capsule foreign body, Crohn's disease. Patient under went Diagnostic laparoscopy with conversion to open laparotomy with ileocecal bowel resection and [id number] stapled anti peristaltic ileocolic anastomosis. On the day of discharge, the patient was seen and examined. Vital signs were stable. Physical exam were stable and labs were reviewed at length. Discharge instructions, medications, and follow-up appointments were discussed with the patient at length and all day questions were answered. ER warnings were given. Status at Discharge Cognitive/behavioral status at discharge: Stable Time Spent with Patient Time attestation: Total time spent providing and/or coordinating discharge services: 45 minute Exam Narrative: General: alert and comfortable Eyes: EOMI, PERRLA ENNT External ears normal, Neck is supple, no masses, Respiratory systems: Clear to auscultation Cardiovascular S1, S2, normal rhythm, no murmur, rub, or gallop; no thrill or palpable murmurs on palpation. Gastrointestinal: soft, non-tender, and non-distended abdomen with no masses; BS present Skin: no rash, lesions, ulcerations, subcutaneous nodules or induration Musculoskeletal: no abnormality and no tenderness, normal ROM Neurologic: Alert and oriented x3, non focal Mental Status Exam: normal affect DS: Data Data Completed and Pending Completed studies during hospitalization: Pending at discharge 05/12/25 17:36 Surgical [PTH] Routine Labs on day of discharge: Labs from last 24 hours 05/18/25 05/14/25 04:54 09:17 WBC 10.1 H RBC 4.25 L Hgb 12.8 L Hct 40.2 L MCV 94.6 MCH 30.1 MCHC 31.8 L RDW 13.3 Plt Count 229 MPV 9.4 Sodium 136 L Potassium 3.6 Chloride 105 Carbon Dioxide 27 Anion Gap 4 BUN 18 Creatinine 0.96 Estim Creat Clear Calc 78 Estimated GFR > 60 Glucose 96 Calcium 8.2 L TB Test (QFT) Gold Plus Negative TB (QFT) Incubation TB Test (QFT) Nil 0.07 TB Test (QFT) Mitogen >10.00 TB Test (QFT) +TB1 -NIL 0.06 TB Test (QFT) +TB2 -NIL 0.07 TB Test (QFT) Criteria Comment Discharge Plan Discharge Attending physician on discharge: Rik Tomlinson Consulting providers: Chan Su Discharging Clinician: Rik Tomlinson Anticipated Discharge Date/Time: 05/18/25 14:11 Patient Disposition: Home Activity: may shower Diet: as tolerated Wound Care Instructions: follow printed instructions Discharge Instructions: No soaking in a bath, pool, evans, or any other body of water. No lifting more than 15-20 pounds for up to 6 weeks. Up and walking 10-30 minutes 3 times a day. You may resume your regular diet as you tolerate it. Start with softer foods. Call the office at to schedule a follow up appointment in 2-3 weeks. Contact your surgeon if you have not had a bowel movement in 5-7 days. Call the office or go to the Emergency Department for: - Bleeding or increased drainage from wounds - Severe pain - Vomiting - Fever greater than 101 degrees Follow up with GI clinic. Patient Instructions: Antibiotic Form Patient Language: [place] Stand Alone Forms: General Discharge Information Follow-up/Referrals: Chan Su MD [Physician, General Surgery] - Call for Appointment Referral Note: 2-3 weeks Discharge Medications: Continued paroxetine HCl [Paxil] 20 mg tablet 20 mg PO DAILY Qty: 90 0RF tamsulosin 0.4 mg capsule 0.4 mg PO DAILY Qty: 90 3RF Held testosterone cypionate 200 mg/mL oil 200 mg IM .bi weekly Qty: 30 0RF Hold Instructions: Resume on 06/08/25. Please discuss with PCP before continuing the medication Rx Instructions: 3mo supply Date of admission: 05/12/25 12:09 Primary Care Provider: Mike Llamas Admitting Provider: Nelly Ramos Attending physician on admission: Nelly Ramos Condition: Stable
== END 2025-05-18 14:34 | disposition home or self-care (01) | DRG 330 ==
LOC: ANHED 10:27 → ANH3MEDSUR 11:39 → ANH2MED 15:49 → ANH3MEDSUR 15:55 → ANH2MED 20:15
PROVIDERS: Internal Medicine Gastroenterology; Nurse Practitioner Family; Surgery; Admitting Provider Internal Medicine; Emergency Provider Emergency Medicine; PCP Family Medicine; Visit Provider General Practice
PROC: 0DTB0ZZ Resection of Ileum, Open Approach (ICD-10-PCS; CPT 49320; principal; 2025-05-12 15:00)
DX: T18.3XXA Foreign body in small intestine, initial encounter (principal); K50.012 Crohn's disease of small intestine with intestinal obstruction; K56.699 Other intestinal obstruction unspecified as to partial versus complete obstruction; K91.0 Vomiting following gastrointestinal surgery; D75.1 Secondary polycythemia; E66.9 Obesity, unspecified; E78.5 Hyperlipidemia, unspecified; N52.9 Male erectile dysfunction, unspecified; I10 Essential (primary) hypertension; K76.0 Fatty (change of) liver, not elsewhere classified; N40.0 Benign prostatic hyperplasia without lower urinary tract symptoms; Z68.30 Body mass index [BMI] 30.0-30.9, adult; Z85.810 Personal history of malignant neoplasm of tongue; Z85.828 Personal history of other malignant neoplasm of skin
CPT/HCPCS: 36415; 74018; 74177; 80048; 80053; 83605; 83690; 83735; 85025; 85027; 85610; 85730; 86480; 86704; 86706; 86850; 86900; 86901; 87340; 88307; 96361; 96374; 96375; 96376; 99285; A9270; G0378; J0330; J1100; J1171; J1650; J1741; J1885; J2004; J2270; J2371; J2405; J2543; J2704; J3010; J3360; J7030; J7120; Q9967